=== PATIENT | female | born 1980 | race Caucasian/White ===

== ENCOUNTER → 2019-07-15 | Outpatient (CLI) | payer OTHER ==
[~2019-07-15] MED LIST: DIAZ5TAB PO; MULT1CAP15 PO
[2019-07-15 15:09] LABS: BILIRUBIN,URINE NEGATIVE (NEG); CLARITY,URINE CLEAR; COLOR,URINE YELLOW; NITRITE,URINE NEGATIVE (NEG); PROTEIN,URINE NEGATIVE (NEG-TRACE); UROBILINOGEN,URINE 0.2 mg/dL (0.2 mg/dL)
[2019-07-15 15:14] LABS: BASO # 0.1 x10^3/uL (0.0-0.2); BASO % 1 % (0-3); EOS # 0.1 x10^3/uL (0.0-0.7); EOS % 1 % (0-3); HEMATOCRIT 40.9 % (36.0-47.0); HEMOGLOBIN 13.9 g/dL (12.0-15.5); LYMPH # 1.8 x10^3/uL (1.0-4.8); LYMPH % 24 % (24-48); MEAN CORPUSCULAR HEMOGLOBIN 31 pg (25-35); MEAN CORPUSCULAR HGB CONC 34 g/dL (31-37); MEAN CORPUSCULAR VOLUME 92 fL (79-100); MONO # 0.5 x10^3/uL (0.0-1.1); MONO % 6 % (0-9); NEUT # 5.2 x10^3/uL (1.8-7.7); NEUT % 68 % (31-73); PLATELET COUNT 187 x10^3/uL (140-400); RED BLOOD COUNT 4.43 x10^6/uL (3.50-5.40); RED CELL DISTRIBUTION WIDTH 12.9 % (11.5-14.5); WHITE BLOOD COUNT 7.6 x10^3/uL (4.0-11.0)
[2019-07-15 15:30] LABS: BACTERIA,URINE FEW /HPF (0-FEW); RBC,URINE 0 /HPF (0-2); SQUAMOUS EPITHELIAL CELL,UR FEW /LPF; WBC,URINE 0 /HPF (0-4)
[2019-07-15 15:30] LABS: ALBUMIN 3.9 g/dL (3.4-5.0); ALBUMIN/GLOBULIN RATIO 1.3 (1.0-1.7); CALCIUM 9.1 mg/dL (8.5-10.1); CREATININE 0.7 mg/dL (0.6-1.0); GFR 94.2; POTASSIUM 4.8 mmol/L (3.5-5.1); TOTAL BILIRUBIN 0.6 mg/dL (0.2-1.0); TOTAL PROTEIN 6.8 g/dL (6.4-8.2)
== END | disposition home or self-care (01) ==
LOC: SURGPAT 14:29
PROVIDERS: ATTEND Obstetrics & Gynecology
DX: N80.9 Endometriosis, unspecified (principal)
CPT/HCPCS: 36415; 80053; 81001; 85025

== ENCOUNTER → 2019-12-04 | Outpatient (CLI) | payer OTHER ==
[~2019-12-04] MED LIST changes: +TRAM50TA PO
[2019-12-04 13:38] LABS: BASO # 0.1 x10^3/uL (0.0-0.2); BASO % 1 % (0-3); EOS # 0.2 x10^3/uL (0.0-0.7); EOS % 3 % (0-3); HEMATOCRIT 41.1 % (36.0-47.0); LYMPH # 2.4 x10^3/uL (1.0-4.8); LYMPH % 26 % (24-48); MEAN CORPUSCULAR HEMOGLOBIN 31 pg (25-35); MEAN CORPUSCULAR HGB CONC 34 g/dL (31-37); MEAN CORPUSCULAR VOLUME 92 fL (79-100); MONO # 0.6 x10^3/uL (0.0-1.1); MONO % 7 % (0-9); NEUT # 5.8 x10^3/uL (1.8-7.7); NEUT % 64 % (31-73); PLATELET COUNT 184 x10^3/uL (140-400); RED BLOOD COUNT 4.47 x10^6/uL (3.50-5.40); RED CELL DISTRIBUTION WIDTH 12.5 % (11.5-14.5); WHITE BLOOD COUNT 9.2 x10^3/uL (4.0-11.0)
[2019-12-04 13:38] LABS: BILIRUBIN,URINE NEGATIVE (NEG); CLARITY,URINE CLEAR; COLOR,URINE AMBER; NITRITE,URINE NEGATIVE (NEG); PROTEIN,URINE NEGATIVE (NEG-TRACE); UROBILINOGEN,URINE 0.2 mg/dL (0.2 mg/dL)
[2019-12-04 13:44] LABS: BACTERIA,URINE 0 /HPF (0-FEW); HYALINE CASTS, URINE MANY /HPF; SQUAMOUS EPITHELIAL CELL,UR MOD /LPF
[2019-12-04 13:56] LABS: ALBUMIN 3.8 g/dL (3.4-5.0); ALBUMIN/GLOBULIN RATIO 1.1 (1.0-1.7); CALCIUM 8.8 mg/dL (8.5-10.1); CREATININE 0.8 mg/dL (0.6-1.0); GFR 80.7; POTASSIUM 4.8 mmol/L (3.5-5.1); TOTAL BILIRUBIN 0.4 mg/dL (0.2-1.0); TOTAL PROTEIN 7.2 g/dL (6.4-8.2)
== END ==
LOC: SURGPAT 13:03
PROVIDERS: ATTEND Obstetrics & Gynecology
DX: Z01.818 Encounter for other preprocedural examination (principal); Z11.59 Encounter for screening for other viral diseases
CPT/HCPCS: 80053; 81001; 85025; U0003

== ENCOUNTER 2019-12-09 06:19 | Observation (INO) | payer OTHER ==
[2019-12-09] VITALS (11 sets, daily range): BP systolic 86–104; BP diastolic 50–71
[~2019-12-09] VITALS: Ht 157.5 cm; Wt 45.4 kg
[2019-12-09] MEDS ORDERED: ESTROGENS, CONJ VAGINAL CREAM 30GM TUBE. ONE (06:51)
[2019-12-09] MEDS ORDERED: BUPIVACAINE-EPI 0.25%-1:200000 MPF 30 ML VIAL. ONE (06:51)
[2019-12-09] MEDS ORDERED: INDIGOTINDISULFONATE SODIUM 40 MG/5 ML AMPUL. ONE (06:51)
[2019-12-09] MEDS ORDERED: IV RINGERS,LACTATED 1000ML 1,000 ML IV SCH (07:00)
[2019-12-09] MEDS ORDERED: ONDANSETRON PF 4 MG/2 ML VIAL. IV PRN ×2 (07:00→10:00)
[2019-12-09] MEDS ORDERED: fentaNYL PF VIAL 100 MCG/2 ML VIAL IV PRN (07:00)
[2019-12-09] MEDS ORDERED: PROCHLORPERAZINE 10 MG/2 ML VIAL. IV PRN (07:00)
[2019-12-09] MEDS ORDERED: fentaNYL PF VIAL 100 MCG/2 ML VIAL ONE ×2 (07:24→09:52)
[2019-12-09] MEDS ORDERED: MIDAZOLAM HCL/PF 2 MG/2 ML VIAL. ONE (07:24)
[2019-12-09] MEDS ORDERED: ROCURONIUM 50 MG/5 ML VIAL. ONE (07:24)
[2019-12-09] MEDS ORDERED: DEXAMETHASONE SOD PHOS 4 MG/ML VIAL ONE (07:57)
[2019-12-09] MEDS ORDERED: ONDANSETRON PF 4 MG/2 ML VIAL. ONE (07:57)
[2019-12-09] MEDS ORDERED: SEVOFLURANE 61 TO 120 MINUTES. IH ONE (07:57)
[2019-12-09] MEDS ORDERED: KETOROLAC 30 MG/ML VIAL. ONE (08:00)
[2019-12-09] MEDS ORDERED: NEOSTIGMINE METHYLSULFATE 5 MG/5 ML SYRINGE. ONE (09:20)
[2019-12-09] MEDS ORDERED: GLYCOPYRROLATE 1 MG/5 ML VIAL. ONE (09:20)
--- NOTE | 2019-12-09 09:49 | PDOC ---
BRIEF OPERATIVE NOTE Date: Dec 09, 2019 Pre-Op Diagnosis pelvic pain, endometriosis Post-Op Diagnosis same plus the known bowel adhesions Procedure Performed LAVH/BSO Surgeon Dr. Ryanne Lewis Parts Remover KVNG Antonio Anesthesiologist Dr. Dunaway Anesthesia Type: General Blood Loss 100cc IV Fluid 1400cc Urine Output 100cc clear via mendoza Specimens Obtained cervix, uterus, bilateral tubes and ovaries Findings known omentum/bowel adhesions; endometriosis on left ovary, post cul de sac and mildly enlarged RV uterus Complications none Operative Note [id number] RYANNE LEWIS MD Dec 09, 2019 09:48
[2019-12-09] MEDS: fentaNYL PF VIAL 100 MCG/2 ML VIAL IV PRN ×2 (09:55→10:02)
[2019-12-09] MEDS ORDERED: diphenhydrAMINE 50 MG/ML VIAL IV PRN (10:00)
[2019-12-09] MEDS ORDERED: MORPHINE SULFATE 2 MG/ML VIAL. IV PRN (10:00)
[2019-12-09] MEDS ORDERED: CALCIUM CARBONATE 500 MG TAB.CHEW PO PRN (10:00)
[2019-12-09] MEDS ORDERED: diphenhydrAMINE HCL 25 MG CAPSULE PO PRN (10:00)
[2019-12-09] MEDS ORDERED: LACTULOSE 20 GM/30 ML SOLUTION. PO PRN (10:00)
[2019-12-09] MEDS ORDERED: PROCHLORPERAZINE 10 MG/2 ML VIAL. ONE (10:00)
[2019-12-09] MEDS ORDERED: NALOXONE 0.4 MG/ML VIAL. IV PRN (10:00)
[2019-12-09] MEDS ORDERED: ZOLPIDEM 5 MG TABLET. PO PRN (10:00)
[2019-12-09] MEDS ORDERED: MAGNESIUM HYDROXIDE 2,400 MG/30 ML ORAL.SUSP. PO PRN (10:00)
[2019-12-09] MEDS ORDERED: MAG HYDROX/ALUMINUM HYD/SIMETH 30 ML ORAL.SUSP PO PRN (10:00)
[2019-12-09] MEDS ORDERED: 0.9 % SODIUM CHLORIDE 10 ML DISP.SYRIN. IV PRN (10:00)
[2019-12-09] MEDS ORDERED: MORPHINE SULFATE 2 MG/ML VIAL. ONE (10:13)
[2019-12-09] MEDS: MORPHINE SULFATE 2 MG/ML VIAL. IV PRN ×2 (10:18→10:41)
[2019-12-09] MEDS ORDERED: HYDROmorphone 2 MG/ML VIAL ONE (10:50)
[2019-12-09] MEDS: HYDROmorphone 2 MG/ML VIAL IV PRN ×2 (10:53→11:04)
[2019-12-09] MEDS: oxyCODONE/APAP 5/325 1 TAB TABLET PO PRN ×3 (12:04→17:48)
--- NOTE | 2019-12-09 13:49 | OP ---
DATE OF SURGERY: 12/09/2019 PREOPERATIVE DIAGNOSES: Known endometriosis from a prior laparoscopy with bowel adhesions as well from a prior mesh procedure, chronic pelvic pain, and endometriosis. POSTOPERATIVE DIAGNOSES: Known endometriosis from a prior laparoscopy with bowel adhesions as well from a prior mesh procedure, chronic pelvic pain, and endometriosis. PROCEDURE: Laparoscopic-assisted vaginal hysterectomy, bilateral salpingo-oophorectomy. SURGEON: Emigdio Lewis MD ORACLE ENDECA CONSULTANT: KVNG De Oliveira ANESTHESIOLOGIST: Dr. Dunaway. ANESTHESIA: General. ESTIMATED BLOOD LOSS: 100 mL. URINE OUTPUT: 100 mL clear via Woodruff catheter. INTRAVENOUS FLUIDS: 1400 mL. SPECIMENS: Cervix, uterus, bilateral tubes and ovaries. FINDINGS: Known omental and bowel adhesions, endometriosis in the posterior cul-de-sac and on the left ovary and a mildly enlarged retroverted uterus. COMPLICATIONS: None. DESCRIPTION OF PROCEDURE: This patient was taken to the operating room where general anesthesia was placed. The patient was placed in a dorsal lithotomy position in [facility]. She was prepped and draped in the normal sterile fashion. A Woodruff catheter had been inserted under sterile technique. On my arrival, we did the timeout. Then, the procedure was initiated. A bivalve speculum was placed in the patient's vagina. A single-tooth tenaculum was used to grasp the anterior lip of the cervix. A 10 mL of 0.25% Marcaine with epinephrine was used to circumferentially inject around the cervix for both hemodissection and hemostatic purposes later. The Valtchev uterine manipulator was placed through the endocervical os, locked on the single-tooth tenaculum and the bivalve speculum was then removed. Top gloves were discarded and changed. Attention was then turned to the abdomen where the left upper quadrant incision was made over the existing scar known from her laparoscopy carried down to the underlying layer with a curved Trista. The 5 mm Visiport was used to directly into the abdominal cavity. Opening patient pressure was 2 mmHg. Carbon dioxide gas was used to then appropriately insufflate the abdominal cavity to maintain a pressure of 15 mmHg. The patient was placed in Trendelenburg position. She did have that wall of omentum on the top. The small bowel seen lower, but over the mesh in the midline just to the left, but the uterus and tubes and ovaries were free. She had had some Endo on the left ovary and in the posterior cul-de-sac. The right lower quadrant was placed over the existing scar as well. It was still clear of everything, so transilluminating the abdominal wall, going right over it and placing the 5 mm under direct visualization, placing 4-5 mL of air in the cuff. I then did move the camera to look at the left upper quadrant to make sure it was okay and it was, it was clear, so 4-5 mL of air was placed in this as well. At this point, we put a left lower quadrant and we went lateral so I was not right in front of my camera, clear of any area, making a small incision, after transilluminating the abdominal wall to find a clear area and placing it in under direct visualization without difficulty, also insufflating that cuff with 4-5 mL of air. At this point, the left tube and ovary were elevated, finding the ureter coursing low in the pelvis, staying high on the ovary, using the LigaSure to cauterize and cut the infundibulopelvic ligament, taking it over to the uterus and then crossing the left round ligament as well, cauterizing and cutting the whole way with the LigaSure. This was done exactly the same on the right side. The right tube was actually already detached from her prior tubal around the ovary, so when I elevated it and found the ureter coursing low and cut it, the tube and ovary actually came off on this side, so it was placed in the posterior cul-de-sac, after lifting it, when I found the ureter coursing low, stayed high on the infundibulopelvic ligament, cauterizing and cutting, it came off because there was no tube to follow under, so then I just pulled the corner of the uterus over and crossed to the right round ligament as well. I was able to start the bladder flap on the right, elevating it with the [place] and using the monopolar hook to work my way across. Once the bladder flap was down, I got the uterine vessels on the right side and then went back to the left side and stayed inside that round pedicle made sure the bladder was down and hugged the uterus and went down to the uterosacral on the right side, cauterizing and cutting through the cardinal and broad ligaments, hugging the cervix and uterus the whole way down vertically. Once this was done, uterus was blanched and it was completely free. I went a couple more bites on the right side inside that uterine pedicle and then we decided to go below. All instruments were removed. Gas was released and attention was turned below. The single tooth and Valtchev were removed. A weighted speculum was placed in the patient's vagina. Thyroid Juanita clamps were placed on the anterior and posterior lips of the cervix respectively. A scalpel was used to make a circumferential incision in the cervix. An open Ray-Rashard 4 x 4 was used to gently push up the anterior bladder peritoneum and it was digitally and bluntly entered. The curved [place] was placed in the anterior cul-de-sac and the 4 x 4 was removed and passed back off. The cervix was elevated. The posterior cul-de-sac was actually already entered. A #0 Vicryl stitch was used to secure the posterior peritoneum here to the vaginal cuff, was tagged with a curved Trista clamp. The needle was cut and passed off. The short weighted vaginal speculum was removed and replaced with the long Harriet speculum in the posterior cul-de-sac. Curved Nataliia clamps x 2 were placed on the patient's left uterosacral ligament where they were doubly clamped with curved Heaneys, cut with curved Condon scissors and suture ligated x 2 with 0 Vicryl. Second one was taken through the vaginal cuff securing uterosacral ligament to the vaginal cuff, tagging it with a straight Trista clamp and passing the needle off. This was done exactly the same on the right side, double clamping the uterosacrals with curved Nataliia's, cutting with curved Condon scissors, suture ligating x 2 with 0 Vicryl and taking the second one through the vaginal cuff, tagging it with a straight Trista clamp and cutting and passing the needle off. At this point, the uterus was actually completely free, the cervix, uterus, left tube and ovary were delivered in toto. The right tube and ovary were easily seen once it came out in the posterior cul-de-sac where we placed them and passed off as well. At this point, a sponge stick was used to examine the pedicles. A long Allis was used to grasp the anterior bladder peritoneum. There was nothing actively bleeding. The long Harriet speculum was removed and replaced with the short weighted vaginal speculum. At this point, 2-0 Vicryl was taken through the anterior bladder peritoneum, left uterosacral ligament, posterior peritoneum and right uterosacral ligament, thus closing the peritoneum in a pursestring like fashion. The right and left uterosacral tags were clipped. The vaginal cuff was closed in an anterior to posterior running locked fashion and tied to the posterior cuff tag. Imbricating stitch was placed in the middle for hemostasis with excellent results. There was no cuff bleeding at all. So at this point, all instruments were correct and counted x 2 by OR personnel. All gloves were discarded and changed and attention was turned back above for a second look. The patient was placed back in Trendelenburg. Gas was reinsufflated. The scope was placed in. She had some very slight oozing from the right cuff that was easily cauterized with the LigaSure with excellent results. Copious irrigation revealed hemostasis. Tisseel was placed over the vaginal cuff, again remained dry, so the right and left lower quadrant ports, the balloons were deflated, they were removed under direct visualization, the vaginal cuff was examined after each one and still remained hemostatic and dry after the irrigation and Tisseel, so at this point, gas was released from that left upper quadrant port. The balloon was deflated and it was also removed. All 3 port sites were closed with 4-0 nylon at the skin and injected with local. The patient was awakened from anesthesia and brought to recovery room in stable condition. EMIGDIO LWEIS MD DR: FRANKLIN/ivan JOB#: [id number] / [id number]
[2019-12-09] MEDS: IBUPROFEN 200 MG TABLET. PO PRN (17:49)
[2019-12-09] MEDS: NICOTINE 14MG PATCH. TD SCH (18:32)
[2019-12-09] MEDS: SIMETHICONE 80 MG TAB.CHEW PO PRN (19:19)
[2019-12-09] MEDS ORDERED: diazePAM 5 MG TABLET PO SCH (21:00)
[2019-12-09] MEDS: HYDROcodone/APAP 5/325MG 1 TAB TABLET PO PRN (21:03)
[2019-12-10] MEDS: HYDROcodone/APAP 5/325MG 1 TAB TABLET PO PRN ×2 (00:51→04:55)
[2019-12-10] MEDS: IBUPROFEN 200 MG TABLET. PO PRN ×2 (00:51→06:45)
[2019-12-10 05:00] VITALS: BP 98/66
[2019-12-10] MEDS: oxyCODONE/APAP 5/325 1 TAB TABLET PO PRN ×3 (07:59→12:13)
[2019-12-10] MEDS: SIMETHICONE 80 MG TAB.CHEW PO PRN (08:00)
[2019-12-10] MEDS: NICOTINE 14MG PATCH. TD SCH (08:01)
[2019-12-10 09:16] LABS: CALCIUM 7.9 mg/dL (8.5-10.1); CREATININE 0.7 mg/dL (0.6-1.0); GFR 94.2; POTASSIUM 4.1 mmol/L (3.5-5.1)
--- NOTE | 2019-12-10 11:44 | PDOC ---
SURGICAL PROGRESS NOTE DATE: 12/10/19 TIME: 11:39 Subjective pt was up eating breakfast in bed this am on exam. She reported some pain and that oxycodone worked better than hydrocodone. Voiding without catheter, no n/v and scant vb Vital Signs Vital Signs Date Time Temp Pulse Resp B/P (MAP) Pulse Ox O2 Delivery O2 Flow Rate FiO2 12/10/19 05:00 97.9 63 16 98/66 (77) 97 Room Air 97.9 12/09/19 11:00 5.0 I&O Intake and Output 12/10/19 07:00 Intake Total 1250 ml Output Total 1100 ml Balance 150 ml Intake IV Total 1250 ml Output Urine Total 1000 ml Estimated Blood Loss 100 ml PATIENT HAS A SANTOS: No General: Alert, Oriented X3, Cooperative, No acute distress HEENT: Atraumatic Heart: Regular rate Abdomen: Soft, Other (all port sites c/d/i) Extremities: No clubbing, No cyanosis, No edema Skin: No rashes, No breakdown Neuro: Normal speech Psych/Mental Status: Mental status NL, Mood NL Labs Laboratory Tests Test 12/09/19 06:44 12/10/19 08:35 Bedside Urine HCG, Qualitative Hcg negative (Negative) Hematocrit 35.4 % (36.0-47.0) Sodium Level 141 mmol/L (136-145) Potassium Level 4.1 mmol/L (3.5-5.1) Chloride Level 107 mmol/L (98-107) Carbon Dioxide Level 31 mmol/L (21-32) Anion Gap 3 (6-14) Blood Urea Nitrogen 6 mg/dL (7-20) Creatinine 0.7 mg/dL (0.6-1.0) Estimated GFR (Cockcroft-Gault) 94.2 Glucose Level 90 mg/dL (70-99) Calcium Level 7.9 mg/dL (8.5-10.1) Laboratory Tests Test 12/10/19 08:35 Hematocrit 35.4 % (36.0-47.0) Sodium Level 141 mmol/L (136-145) Potassium Level 4.1 mmol/L (3.5-5.1) Chloride Level 107 mmol/L (98-107) Carbon Dioxide Level 31 mmol/L (21-32) Anion Gap 3 (6-14) Blood Urea Nitrogen 6 mg/dL (7-20) Creatinine 0.7 mg/dL (0.6-1.0) Estimated GFR (Cockcroft-Gault) 94.2 Glucose Level 90 mg/dL (70-99) Calcium Level 7.9 mg/dL (8.5-10.1) I have reviewed the following labs, vitals, nursing Cardiovascular: No pertinent hx Pulmonary: No pertinent hx GI: Other (pt reports ulcer) Heme/Onc: No pertinent hx Psych: No pertinent hx Assessment/Plan POD#1 s/p LAVH/BSO Routine PO care AF VSS dc to home later today NPV x 6 weeks light/limited activity x 2 weeks keep scheduled follow up in one week as scheduled already has pain pills at home ok for OTC ibuprofen as needed NO driving on pain meds call or return sooner for any other questions or concerns not limited to but including pain unrelieved with pain meds, increased or unexplained vaginal bleeding or T>100.4 Justicifation of Admission Dx: Justifications for Admission: Justification of Admission Dx: Yes EMIGDIO DE LA PAZ MD Dec 10, 2019 11:44
--- NOTE | 2019-12-10 11:47 | PDOC3 ---
Discharge Summary Visit Information Date of Admission: Dec 09, 2019 Date of Discharge: Dec 10, 2019 Final Diagnosis endometriosis, menorrhagia, pelvic pain Brief Hospital Course Allergies Allergies Coded Allergies Type Severity Reaction Last Updated Verified adhesive Allergy Intermediate Rash 07/15/19 Yes latex Allergy Intermediate Rash 07/15/19 Yes Vital Signs Vital Signs Date Time Temp Pulse Resp B/P (MAP) Pulse Ox O2 Delivery O2 Flow Rate FiO2 12/10/19 05:00 97.9 63 16 98/66 (77) 97 Room Air 97.9 12/09/19 11:00 5.0 Lab Results Laboratory Tests Test 12/09/19 06:44 12/10/19 08:35 Bedside Urine HCG, Qualitative Hcg negative (Negative) Hematocrit 35.4 % (36.0-47.0) Sodium Level 141 mmol/L (136-145) Potassium Level 4.1 mmol/L (3.5-5.1) Chloride Level 107 mmol/L (98-107) Carbon Dioxide Level 31 mmol/L (21-32) Anion Gap 3 (6-14) Blood Urea Nitrogen 6 mg/dL (7-20) Creatinine 0.7 mg/dL (0.6-1.0) Estimated GFR (Cockcroft-Gault) 94.2 Glucose Level 90 mg/dL (70-99) Calcium Level 7.9 mg/dL (8.5-10.1) Laboratory Tests Test 12/10/19 08:35 Hematocrit 35.4 % (36.0-47.0) Sodium Level 141 mmol/L (136-145) Potassium Level 4.1 mmol/L (3.5-5.1) Chloride Level 107 mmol/L (98-107) Carbon Dioxide Level 31 mmol/L (21-32) Anion Gap 3 (6-14) Blood Urea Nitrogen 6 mg/dL (7-20) Creatinine 0.7 mg/dL (0.6-1.0) Estimated GFR (Cockcroft-Gault) 94.2 Glucose Level 90 mg/dL (70-99) Calcium Level 7.9 mg/dL (8.5-10.1) Brief Hospital Course Ms. Trejo is a 39 old female who presented with chronic pelvic pain, known endometriosis and menorrhagia desiring definitive therapy. She underwent and LAVH/BSO yesterday without complications. She has had an unremarkable postoperative course. She is AFVSS, scant VB, voiding without catheter and tolerating regular diet. Assessment Assessment POD#1 s/p LAVH/BSO Routine PO care AF VSS dc to home later today NPV x 6 weeks light/limited activity x 2 weeks keep scheduled follow up in one week as scheduled already has pain pills at home ok for OTC ibuprofen as needed NO driving on pain meds call or return sooner for any other questions or concerns not limited to but including pain unrelieved with pain meds, increased or unexplained vaginal bleeding or T>100.4 Discharge Information Condition at Discharge: Stable Follow Up: Weeks Disposition/Orders: D/C to Home Scheduled Diazepam (Valium) 5 Mg Tablet, 7.5 MG PO HS for sleep aid, (Reported) Entered as Reported by: LEANN MARTE on 07/15/19 1447 Last Taken: Unknown Dose on 12/09/19 0600 Last Action: Continued on 12/09/19742 by EMIGDIO DE LA PAZ Multivitamin (Multivitamins) 1 Each Capsule, 1 CAP PO DAILY for vitamin for 30 Days, #30 Ref 0 (Reported) Entered as Reported by: LEANN MARTE on 07/15/19 1446 Last Action: HELD on 12/09/19 0743 by EMIGDIO DE LA PAZ Scheduled PRN Tramadol Hcl (Tramadol Hcl) 50 Mg Tablet, 50 MG PO BID PRN for PAIN, Ref 0 (Reported) Entered as Reported by: LEANN MARTE on 12/04/19 1329 Last Taken: Unknown Dose on 12/09/19 0700 Last Action: HELD on 12/09/19 074 3 by EMIGDIO DE LA PAZ Patient Instructions Patient Instructions POD#1 s/p LAVH/BSO Routine PO care AF VSS dc to home later today NPV x 6 weeks light/limited activity x 2 weeks keep scheduled follow up in one week as scheduled already has pain pills at home ok for OTC ibuprofen as needed NO driving on pain meds call or return sooner for any other questions or concerns not limited to but including pain unrelieved with pain meds, increased or unexplained vaginal bleeding or T>100.4 Justicifation of Admission Dx: Justifications for Admission: Justification of Admission Dx: Yes EMIGDIO DE LA PAZ MD Dec 10, 2019 11:47
[2019-12-10 12:15] VITALS: BP 98/69
--- NOTE | 2019-12-10 17:07 | PATHOLOGY ---
[facility] Accession Number: [id number] . 01 Material submitted: . uterus - UTERUS,CERVIX,BILATERAL FALLOPIAN TUBES,BILATERAL OVARIES . 01 Clinical history: . Endometriosis; pelvic pain . 02 Diagnosis: Uterus and attached left fallopian tube and ovary, and detached right fallopian tube and ovary, laparoscopic assisted vaginal hysterectomy and bilateral salpingo-oophorectomy: - Adenomyosis, uterine corpus, subbasal, focal. - Chronic cervicitis with focal atypical squamous metaplasia. - Proliferative endometrium. - Left paratubal cyst. - Cystic follicles of bilateral ovaries with focal regressive changes. (JPM:boom; 12/10/2019) [facility] 12/10/2019 1654 Local . 02 Comment: There is no evidence of malignancy. (JPM:boom; 12/10/2019) . 02 Electronically signed: . Wes Egan MD, Pathologist NPI- [id number] . 01 Gross description: . The specimen is received in formalin labeled " Kaitlynn Trejo, uterus, cervix, bilateral fallopian tubes, bilateral ovaries, right ovary detached". Received is a 100 g, 8.2 x 6.0 x 4.1 cm uterus with attached cervix, attached left adnexa weighing 16 g, and detached right adnexa weighing 9 g. The uterine serosa is pink-pickett and smooth in appearance. The 1.3 cm cervical os is surrounded by pink-pickett, smooth to moderately disrupted ectocervical mucosa surrounding the cervical os. The uterus is oriented using the peritoneal reflection and the anterior paracervical margin is inked black. The uterus is opened laterally to reveal a pink-pickett, corrugated endocervical canal measuring 2.4 cm in length. The endometrial cavity is triangular measuring 4.5 cm in length by 2.9 cm in width. The endometrium is pale pickett to hemorrhagic in appearance and measures one cm in thickness. Serial sectioning reveals a pickett-pink, trabeculated myometrium measuring up to 2.2 cm in thickness with no grossly distinct nodules or lesions. . The left adnexa consists of a fimbriated fallopian tube measuring 6.3 cm in length by up to 0.6 cm in diameter attached to a 5.0 x 2.5 x 1.5 cm ovary. The serosal surface of the fallopian tube is pink-pickett and smooth in appearance displaying a single attached paratubal cyst measuring 0.5 cm. Sectioning through the fallopian tube reveals a pinpoint to patent lumen and the fallopian tube appears grossly unremarkable. The serosal surface of the ovary is pink-pickett to pink-hollingsworth and smooth in appearance. Sectioning through the ovary reveals multiple unilocular cystic structures ranging in size from 0.3 to 1.0 cm filled with clear fluid. . The right adnexa consists of a fimbriated fallopian tube measuring 2.5 cm in length by up to 0.5 cm in diameter attached to a 4.8 x 2.6 x 1.6 cm ovary. The serosal surface of the fallopian tube is pink-hollingsworth and smooth in appearance. Sectioning through the fallopian tube reveals a patent lumen and the fallopian tube appears grossly unremarkable. The serosal surface of the ovary is pale pickett to pink-hollingsworth and smooth in appearance. Sectioning through the ovary reveals multiple cystic structures ranging in size from 0.3 to 0.7 cm filled with blood-tinged fluid. The specimen is submitted representatively as follows: . A1 12:00 cervix A2 6:00 cervix A3 anterior endomyometrium A4 posterior endomyometrium A5-A6 left adnexa A7-A8 right adnexa. (CAA; 12/09/2019) QA/QA 12/10/2019 1339 Local . 02 Pathologist provided ICD-10: N80.0, N72, N87.9, N83.8 . 02 CPT . 971727 Specimen Comment: A courtesy copy of this report has been sent to [phone], [phone] Specimen Comment: [id number] Specimen Comment: Report sent to / DR WEBER Performed at: [id number] [facility] [address], [place], [place] [id number] MD Román Mesa MD Phone: [phone] Performed at: [address] [id number] MD Wes Egan MD Phone: [phone]
== END 2019-12-10 18:00 | disposition home or self-care (01) ==
LOC: SURG 06:19 → 3 NORTH 10:00
PROVIDERS: ADMIT Obstetrics & Gynecology; ATTEND Obstetrics & Gynecology
DX: N80.3 Endometriosis of pelvic peritoneum (principal); N92.0 Excessive and frequent menstruation with regular cycle; R10.2 Pelvic and perineal pain
CPT/HCPCS: 36415; 58552; 80048; 81025; 85014; 86850; 86900; 86901; A4314; A7015; G0378; G0379; J0690; J0780; J1100; J1170; J1885; J2250; J2270; J2405; J2710; J3010; J3480; J3490; J7030; J7120; 96360; 96361

== ENCOUNTER 2019-12-22 17:22 | Emergency (ER) | payer OTHER ==
[~2019-12-22] VITALS: Ht 165.1 cm; Wt 40.9 kg
[2019-12-22 18:25] VITALS: BP 153/75
[2019-12-22] MEDS ORDERED: ONDANSETRON PF 4 MG/2 ML VIAL. IVP ONE (18:45)
[2019-12-22] MEDS ORDERED: HYDROmorphone 2 MG/ML VIAL IV ONE (18:45)
[2019-12-22 18:59] LABS: BILIRUBIN,URINE NEGATIVE (NEG); CLARITY,URINE CLEAR; COLOR,URINE YELLOW; NITRITE,URINE NEGATIVE (NEG); PROTEIN,URINE NEGATIVE (NEG-TRACE); UROBILINOGEN,URINE 0.2 mg/dL (0.2 mg/dL)
--- NOTE | 2019-12-22 19:12 | PHYS DOC ---
Past Medical History Past Medical History: Anxiety Additional Past Medical Histor: HERNIA Past Surgical History: Other Additional Past Surgical Histo: SHOULDER, HEMORRHOIDECTOMY Smoking Status: Current Every Day Smoker Alcohol Use: None General Adult EDM: Chief Complaint: PELVIC PAIN HPI: HPI: The history was obtained from the patient and . Patient is a 39-year-old female with PMH status post hysterectomy on December 08 secondary to endometriosis, peptic ulcer disease who presents with a chief complaint of lower abdominal pain. Patient states that she had a hysterectomy performed on December 08 at our facility by Dr. Lewis secondary to endometriosis. She states that her pain was well controlled postoperatively until a couple of days ago when she ran out of her home oxycodone. States she has had constant lower abdominal pain since then. States it seems to wrap around her right lower back. She notes nausea without vomiting. She notes a lack of appetite. She denies any dysuria, hematuria, or polyuria. She does note some mild brownish vaginal discharge that she was told is normal postoperatively. She has followed up with her SWINE NUTRITIONIST who does not think that her postoperative pain related to her surgery. She was seen at an outside emergency department yesterday for pain related complaints. CAT scan at that time was grossly unremarkable. She denies any fevers. Denies syncope. States that she has not been taking her dyspepsia medication recently. Denies chest pain, shortness of breath, or cough. No other complaints. Review of Systems: Review of Systems: Constitutional: Denies fever or chills. [] Eyes: Denies change in visual acuity. [] HENT: Denies nasal congestion or sore throat. [] Respiratory: Denies cough or shortness of breath. [] Cardiovascular: Denies chest pain or edema. [] GI: Positive for abdominal pain, nausea : Positive for vaginal discharge Musculoskeletal: Denies back pain or joint pain. [] Integument: Denies rash. [] Neurologic: Denies headache, focal weakness or sensory changes. [] Endocrine: Denies polyuria or polydipsia. [] Lymphatic: Denies swollen glands. [] Psychiatric: Denies depression or anxiety. [] Heart Score: Risk Factors: Risk Factors: DM, Current or recent (<one month) smoker, HTN, HLP, family history of CAD, obesity. Risk Scores: Score 0 - 3: 2.5% MACE over next 6 weeks - Discharge Home Score 4 - 6: 20.3% MACE over next 6 weeks - Admit for Clinical Observation Score 7 - 10: 72.7% MACE over next 6 weeks - Early Invasive Strategies Current Medications: Current Medications Medications (Trade) Dose Ordered Sig/Jasmeet Start Time Stop Time Status Last Admin Dose Admin Hydromorphone HCl (Dilaudid) 1 mg 1X ONCE 12/22/19 18:45 12/22/19 18:46 DC Ondansetron HCl (Zofran) 4 mg 1X ONCE 12/22/19 18:45 12/22/19 18:46 DC Allergies: Allergies: Allergies Coded Allergies Type Severity Reaction Last Updated Verified adhesive Allergy Intermediate Rash 07/15/19 Yes latex Allergy Intermediate Rash 07/15/19 Yes Physical Exam: PE: Constitutional: Well developed, well nourished, no acute distress, non-toxic appearance. [] HENT: Normocephalic, atraumatic, bilateral external ears normal, oropharynx moist, no oral exudates, nose normal. [] Eyes: PERRLA, EOMI, conjunctiva normal, no discharge. [] Neck: Normal range of motion, no tenderness, supple, no stridor. [] Cardiovascular: Tachycardic. Lungs & Thorax: Bilateral breath sounds clear to auscultation [] Abdomen: Mild diffuse tenderness to palpation. Patient appears to voluntarily guard. No rigidity appreciated. : Thin white vaginal discharge noted. No cervical motion tenderness. Chaperoned with Cedric Meehan Skin: Warm, dry, no erythema, no rash. [] Back: No tenderness, no CVA tenderness. [] Extremities: No tenderness, no cyanosis, no clubbing, ROM intact, no edema. [] Neurologic: Alert and oriented X 3, normal motor function, normal sensory function, no focal deficits noted. [] Psychologic: Affect normal, judgement normal, mood normal. [] Current Patient Data: Vital Signs: Vital Signs Date Time Temp Pulse Resp B/P (MAP) Pulse Ox O2 Delivery O2 Flow Rate FiO2 12/22/19 18:25 98.5 113 20 153/75 (101) 99 Room Air 98.5 EKG: EKG: [] Radiology/Procedures: Radiology/Procedures: [] Course & Med Decision Making: Course & Med Decision Making Pertinent Labs and Imaging studies reviewed. (See chart for details) Patient is an uncomfortable appearing 39-year-old female who presents with a chief complaint of abdominal pain. She notes history of hysterectomy on December 08. Initial vital signs normal for mild tachycardia. Physical exam noted above. Ultrasound imaging was obtained with no acute pathology. CBC without leukocytosis. Maner of labs been unremarkable. Urinalysis without evidence of infection. Pelvic exam did reveal milky white thin discharge. Wet prep however shows no signs of bacterial vaginosis or trichomonas. Chlamydia and gonorrhea cultures pending. I did engage the patient and at bedside and lengthy discussion regarding results of labs and imaging. I did offer to obtain repeat CAT scan imaging particularly given the potential for perirectal abnormality noted on the scan yesterday. They state they would prefer to defer CAT scan imaging given the risk of radiation. She states he is having normal bowel movements. Furthermore they are also declining Rocephin and azithromycin prophylactic treatment until cultures return. On repeat examination her abdomen is now soft. Her pain is well controlled. Strict 24 to 48-hour return precautions were given. I did instruct her to follow-up with her primary care physician in the next 2 to 3 days. She will be given a GI referral given her OBG was concerned this could be gastrointestinal related. Patient agreeable to plan and discharged home. Ravinder Disclaimer: Ravinder Disclaimer: This electronic medical record was generated, in whole or in part, using a voice recognition dictation system. Departure Departure Impression: Primary Impression: Lower abdominal pain Additional Impression: Status post hysterectomy Disposition: HOME, SELF-CARE Condition: GOOD Referrals: HOLGER WEBER (PCP) NENITA FRIAS MD Patient Instructions: Hysterectomy, Care After Additional Instructions: Please follow-up with your SWINE NUTRITIONIST in the next 2 to 3 days. Please follow-up with your primary care physician in the next 2 to 3 days. Please return the emergency department in 24 to 48 hours should her symptoms not improve or worsen. Scripts Ondansetron Hcl (ZOFRAN) 4 Mg Tablet 4 MG PO PRN TID PRN for NAUSEA, #15 nausea/vomiting Prov: MAXIMILIANO DOWD DO 12/21/20 Dicyclomine Hcl (DICYCLOMINE HCL) 20 Mg Tablet 1 TAB PO TID, #21 TAB 1 Refill Prov: MAXIMILIANO DOWD DO 8/25/20 Famotidine (PEPCID) 20 Mg Tablet 20 MG PO HS for 14 Days, #14 TAB Prov: MAXIMILIANO DOWD DO 12/22/19 Justicifation of Admission Dx: Justifications for Admission: Justification of Admission Dx: Yes MAXIMILIANO DOWD DO Dec 22, 2019 19:12
[2019-12-22 19:21] LABS: SQUAMOUS EPITHELIAL CELL,UR FEW /LPF
[2019-12-22 19:22] LABS: BACTERIA,URINE FEW /HPF (0-FEW); RBC,URINE RARE /HPF (0-2); WBC,URINE 0 /HPF (0-4)
[2019-12-22 19:35] LABS: BASO # 0.1 x10^3/uL (0.0-0.2); BASO % 1 % (0-3); EOS # 0.1 x10^3/uL (0.0-0.7); EOS % 2 % (0-3); HEMATOCRIT 41.5 % (36.0-47.0); HEMOGLOBIN 14.5 g/dL (12.0-15.5); LYMPH # 2.8 x10^3/uL (1.0-4.8); LYMPH % 35 % (24-48); MEAN CORPUSCULAR HEMOGLOBIN 31 pg (25-35); MEAN CORPUSCULAR HGB CONC 35 g/dL (31-37); MEAN CORPUSCULAR VOLUME 89 fL (79-100); MONO # 0.5 x10^3/uL (0.0-1.1); MONO % 6 % (0-9); NEUT # 4.5 x10^3/uL (1.8-7.7); NEUT % 57 % (31-73); PLATELET COUNT 212 x10^3/uL (140-400); RED BLOOD COUNT 4.64 x10^6/uL (3.50-5.40); RED CELL DISTRIBUTION WIDTH 12.4 % (11.5-14.5)
[2019-12-22 19:44] LABS: CALCIUM 8.8 mg/dL (8.5-10.1); CREATININE 0.7 mg/dL (0.6-1.0); GFR 94.2; POTASSIUM 3.9 mmol/L (3.5-5.1)
[2019-12-22 19:49] LABS: ALBUMIN/GLOBULIN RATIO 1.1 (1.0-1.7); TOTAL BILIRUBIN 0.6 mg/dL (0.2-1.0); TOTAL PROTEIN 7.8 g/dL (6.4-8.2)
--- NOTE | 2019-12-22 20:31 | RAD ---
Exam: Ultrasound pelvis ultrasound Indication: Lower abdominal pain. Hysterectomy on the 12th Technique: Real-time grayscale and color Doppler images of the pelvis were obtained by the department title specialist. Comparisons: None FINDINGS: Uterus is surgically absent. Ovaries are not identified, likely also surgically absent. No free fluid is identified. IMPRESSION: Uterus and ovaries are not identified, likely related to hysterectomy. No free fluid. Electronically signed by: Xiomara Pearson MD (12/22/2019 8:29 PM) [id number]
[2019-12-22] MEDS ORDERED: fentaNYL PF VIAL 100 MCG/2 ML VIAL IVP ONE (23:00)
[2019-12-22] MEDS ORDERED: FAMO-63 PO (23:01)
[2019-12-22] MEDS ORDERED: ONDA4TAB7 PO (23:01)
[2019-12-22] MEDS ORDERED: DICY20TA3 PO (23:01)
[2019-12-24 19:09] LABS: GC PROBE Negative (Negative)
== END 2019-12-22 23:47 | disposition home or self-care (01) ==
LOC: ER 17:22
DX: R10.84 Generalized abdominal pain (principal); N89.8 Other specified noninflammatory disorders of vagina; F17.200 Nicotine dependence, unspecified, uncomplicated; Z98.890 Other specified postprocedural states; Z90.710 Acquired absence of both cervix and uterus; Z91.040 Latex allergy status; Z88.8 Allergy status to other drugs, medicaments and biological substances
CPT/HCPCS: 36415; 76856; 80053; 81001; 83605; 85025; 87491; 87591; 96374; 96375; 99284; J1170; J2405; J3010; Q0111

== ENCOUNTER 2019-12-31 15:38 | Inpatient (IN) | payer OTHER ==
[~2019-12-31] VITALS: Ht 157.5 cm; Wt 49.0 kg
[~2019-12-31 15:38] MED LIST changes: +DICY20TA3 PO; +FAMO-63 PO; +ONDA4TAB7 PO
[2019-12-31 15:59] LABS: BILIRUBIN,URINE NEGATIVE (NEG); CLARITY,URINE CLEAR; COLOR,URINE YELLOW; NITRITE,URINE NEGATIVE (NEG); PROTEIN,URINE NEGATIVE (NEG-TRACE); UROBILINOGEN,URINE 0.2 mg/dL (0.2 mg/dL)
[2019-12-31] MEDS ORDERED: IV NORMAL SALINE 1000ML BAG 1,000 ML IV ONE (16:00)
[2019-12-31 16:03] LABS: BACTERIA,URINE 0 /HPF (0-FEW); RBC,URINE 0 /HPF (0-2); WBC,URINE 0 /HPF (0-4)
[2019-12-31 16:15] LABS: BASO # 0.1 x10^3/uL (0.0-0.2); BASO % 1 % (0-3); EOS # 0.1 x10^3/uL (0.0-0.7); EOS % 2 % (0-3); HEMATOCRIT 40.7 % (36.0-47.0); LYMPH # 2.9 x10^3/uL (1.0-4.8); LYMPH % 41 % (24-48); MEAN CORPUSCULAR HEMOGLOBIN 31 pg (25-35); MEAN CORPUSCULAR HGB CONC 34 g/dL (31-37); MEAN CORPUSCULAR VOLUME 91 fL (79-100); MONO # 0.5 x10^3/uL (0.0-1.1); MONO % 6 % (0-9); NEUT # 3.5 x10^3/uL (1.8-7.7); NEUT % 50 % (31-73); PLATELET COUNT 206 x10^3/uL (140-400); RED CELL DISTRIBUTION WIDTH 12.6 % (11.5-14.5); WHITE BLOOD COUNT 7.1 x10^3/uL (4.0-11.0)
[2019-12-31] MEDS ORDERED: fentaNYL PF VIAL 100 MCG/2 ML VIAL IVP ONE ×2 (16:15→18:00)
[2019-12-31] MEDS ORDERED: ONDANSETRON PF 4 MG/2 ML VIAL. IVP ONE (16:15)
--- NOTE | 2019-12-31 16:15 | PHYS DOC ---
Past Medical History Past Medical History: Anxiety Additional Past Medical Histor: HERNIA (KE SANCHEZ DO) Past Surgical History: Other Additional Past Surgical Histo: SHOULDER, HEMORRHOIDECTOMY (KE SANCHEZ DO) Smoking Status: Current Every Day Smoker Alcohol Use: None (KE SANCHEZ DO) General Adult EDM: Chief Complaint: PELVIC PAIN HPI: HPI: Patient is a 39 year old who was sent here from her [facility] physician clinic due to chronic pelvic pain. Patient had chronic pelvic pain, she had hysterectomy on December 09, 2019. After the operation patient says she had nausea vomiting not able to eat much, she lost about 10 pounds since. Since last night patient started having severe pelvic pain, she went to her [facility] doctor today who did a pelvic exam and did not find any acute problem but the abdominal exam she was exquisitely tender to palpation therefore the doctor called the ER and informed that the patient is coming for further evaluation and treatment. Patient has history of peptic ulcer as well. (KE SANCHEZ DO) Review of Systems: Review of Systems: Constitutional: Denies fever or chills. [] Eyes: Denies change in visual acuity. [] HENT: Denies nasal congestion or sore throat. [] Respiratory: Denies cough or shortness of breath. [] Cardiovascular: Denies chest pain or edema. [] GI: Positive for lower abdominal pain with nausea vomiting, no diarrhea : Denies dysuria. [] Musculoskeletal: Denies back pain or joint pain. [] Integument: Denies rash. [] Neurologic: Denies headache, focal weakness or sensory changes. [] Endocrine: Denies polyuria or polydipsia. [] Lymphatic: Denies swollen glands. [] Psychiatric: Denies depression or anxiety. [] (KE SANCHEZ DO) Heart Score: Risk Factors: Risk Factors: DM, Current or recent (<one month) smoker, HTN, HLP, family history of CAD, obesity. Risk Scores: Score 0 - 3: 2.5% MACE over next 6 weeks - Discharge Home Score 4 - 6: 20.3% MACE over next 6 weeks - Admit for Clinical Observation Score 7 - 10: 72.7% MACE over next 6 weeks - Early Invasive Strategies (KE SANCHEZ DO) Current Medications: Current Medications Medications (Trade) Dose Ordered Sig/Jasmeet Start Time Stop Time Status Last Admin Dose Admin Fentanyl Citrate (Fentanyl 2ml Vial) 50 mcg 1X ONCE 12/31/19 16:15 12/31/19 16:16 Ondansetron HCl (Zofran) 4 mg 1X ONCE 12/31/19 16:15 12/31/19 16:16 Sodium Chloride 1,000 ml @ 1,000 mls/hr 1X ONCE 12/31/19 16:00 12/31/19 16:59 (KE SANCHEZ DO) Allergies: Allergies: Allergies Coded Allergies Type Severity Reaction Last Updated Verified adhesive Allergy Intermediate Rash 07/15/19 Yes latex Allergy Intermediate Rash 07/15/19 Yes (KE SANCHEZ DO) Physical Exam: PE: Constitutional: Well developed, well nourished, no acute distress, non-toxic appearance. [] HENT: Normocephalic, atraumatic, bilateral external ears normal, oropharynx moist, no oral exudates, nose normal. [] Eyes: PERRLA, EOMI, conjunctiva normal, no discharge. [] Neck: Normal range of motion, no tenderness, supple, no stridor. [] Cardiovascular:Heart rate regular rhythm, no murmur [] Lungs & Thorax: Bilateral breath sounds clear to auscultation [] Abdomen: Bowel sounds normal, soft, there is tenderness to palpation in the periumbilical and suprapubic area, right lower abdominal area, Skin: Warm, dry, no erythema, no rash. [] Back: No tenderness, no CVA tenderness. [] Extremities: No tenderness, no cyanosis, no clubbing, ROM intact, no edema. [] Neurologic: Alert and oriented X 3, normal motor function, normal sensory function, no focal deficits noted. [] Psychologic: Affect normal, judgement normal, mood normal. [] (KE SANCHEZ DO) Current Patient Data: Labs: Laboratory Tests Test 12/31/19 15:48 12/31/19 15:55 Urine Collection Type Unknown Urine Color Yellow Urine Clarity Clear Urine pH 6.0 (<5.0-8.0) Urine Specific [place] 1.020 (1.000-1.030) Urine Protein Negative mg/dL (NEG-TRACE) Urine Glucose (UA) Negative mg/dL (NEG) Urine Ketones (Stick) Trace mg/dL (NEG) Urine Blood Negative (NEG) Urine Nitrite Negative (NEG) Urine Bilirubin Negative (NEG) Urine Urobilinogen Dipstick 0.2 mg/dL (0.2 mg/dL) Urine Leukocyte Esterase Negative (NEG) Urine RBC 0 /HPF (0-2) Urine WBC 0 /HPF (0-4) Urine Bacteria 0 /HPF (0-FEW) Urine Mucus Mod /LPF POC Urine HCG, Qualitative Hcg negative (Negative) (KE SANCHEZ DO) EKG: EKG: [] (KE SANCHEZ DO) Radiology/Procedures: Radiology/Procedures: [] (KE SANCHEZ DO) Radiology/Procedures: [facility] [address] [place], [place] [id number] IMAGING REPORT Signed PATIENT: KIEL HAMMER ACCOUNT: [id number] : 1980 LOCATION: ER AGE: 39 SEX: F EXAM STATUS: REG ER ORD. PHYSICIAN: KE SANCHEZ DO REASON: LOWER ABDOMINAL PAIN, S/P HYSTERECTOMY ON 12/09/19, LOST 10 LBS, CACHECTIC. PROCEDURE: CT ABD PELV W/ORAL&IV CONTRAST CT scan of the abdomen and pelvis with contrast 12/31/2019 CLINICAL HISTORY: Lower abdominal pain. Hysterectomy on 12/09/2019. Cachexia and weight loss. TECHNIQUE: After the oral and intravenous administration of contrast, contiguous, 5 mm axial sections were obtained through the abdomen and pelvis. 75 cc of Omnipaque 300 were administered intravenously during this examination. One or more of the following individualized dose reduction techniques were utilized for this study: 1. Automated exposure control. 2. Adjustment of the mA and/or kV according to patient size. 3. Use of iterative reconstruction technique. FINDINGS: Comparison is made to the patient's pelvic ultrasound dated 12/22/2019. Additional comparison is made to the patient's CT scan of the abdomen and pelvis dated 12/21/2019. This was performed at [facility]. Images through the lung bases demonstrate minimal dependent subsegmental atelectasis bilaterally. The liver is mildly enlarged measuring 21 cm in length. Decreased attenuation of the liver parenchyma is seen consistent with fatty infiltration. The spleen, pancreas, adrenal glands and kidneys are within normal limits. The abdominal aorta tapers normally. The gallbladder is well-distended. No free fluid or free air is seen within the abdomen. There is no evidence of bowel obstruction. Air and stool are seen throughout the colon. The appendix is well-visualized and is within normal limits. Images through the pelvis demonstrate the urinary bladder distended with urine. Surgical clips are seen in the inferior rectum, unchanged. Calcifications are seen within the pelvis consistent with phleboliths. No pelvic mass or free fluid is noted. No pelvic hematoma is seen. The osseous structures are unchanged. IMPRESSION: No acute abnormality is seen. Electronically signed by: Delmar Trevino MD (12/31/2019 6:43 PM) [id number] DICTATED and SIGNED BY: DELMAR TREVINO MD DATE: 12/31/191842 (MAXIMILIANO QUEZADA DO) Course & Med Decision Making: Course & Med Decision Making Pertinent Labs and Imaging studies reviewed. (See chart for details) Patient is a 39-year-old female who was sent here from [facility] doctor for severe pelvic pain, CT scan her abdomen pelvic is been at this time, her care is endorsed to the incoming physician Dr. Quezada. (KE SANCHEZ DO) Course & Med Decision Making Patient is a well-appearing 39-year-old female who presents with chief complaint of abdominal pain status post hysterectomy on December 08. Chart review performed. Patient does have multiple visits to outside hospital as well as our facility for intractable abdominal pain. She does have a documented 10 pound weight loss over that time period. CT images and ultra images have been grossly unremarkable. Labs today been normal. I did discuss case with the patient's electron microscopist Dr. Lewis. No identified cause of her abdominal discomfort can be found. However given her intractable pain with document weight loss I do feel she would benefit from hospitalization for potential GI evaluation. Patient agreeable to this. (MAXIMILIANO QUEZADA DO) Dragon Disclaimer: Dragon Disclaimer: This electronic medical record was generated, in whole or in part, using a voice recognition dictation system. (KE SANCHEZ DO) Departure Departure Impression: Primary Impression: Pelvic pain Additional Impression: Unexplained weight loss Disposition: ADMITTED INPATIENT Condition: STABLE Referrals: HOLGER WEBER (PCP) Justicifation of Admission Dx: Justifications for Admission: Justification of Admission Dx: Yes (KE SANCHEZ DO) Justification of Admission Dx: Yes Comments: intractable abd pain and unexplained weight loss (MAXIMILIANO QUEZADA DO) KE SANCHEZ DO Dec 31, 2019 16:15 MAXIMILIANO QUEZADA DO Dec 31, 2019 20:03
[2019-12-31 16:25] LABS: CALCIUM 9.1 mg/dL (8.5-10.1); CREATININE 0.6 mg/dL (0.6-1.0); GFR 112.5; POTASSIUM 3.6 mmol/L (3.5-5.1)
[2019-12-31 16:27] LABS: PROTHROMBIN TIME PATIENT 13.7 SEC (11.7-14.0)
[2019-12-31 16:31] LABS: ALBUMIN/GLOBULIN RATIO 1.2 (1.0-1.7); TOTAL BILIRUBIN 0.4 mg/dL (0.2-1.0); TOTAL PROTEIN 7.4 g/dL (6.4-8.2)
[2019-12-31] MEDS ORDERED: CONTRAST GIVEN. MC PRN (17:30)
[2019-12-31] MEDS ORDERED: IOHEXOL 300 MG/ML 100ML VIAL. IV ONE (17:30)
[2019-12-31] MEDS ORDERED: IOHEXOL 240 MG/ML 50ML VIAL. PO ONE (17:30)
[2019-12-31] MEDS ORDERED: METOCLOPRAMIDE HCL 10 MG/2 ML VIAL. IVP ONE (18:00)
--- NOTE | 2019-12-31 18:45 | RAD ---
CT scan of the abdomen and pelvis with contrast 12/31/2019 CLINICAL HISTORY: Lower abdominal pain. Hysterectomy on 12/09/2019. Cachexia and weight loss. TECHNIQUE: After the oral and intravenous administration of contrast, contiguous, 5 mm axial sections were obtained through the abdomen and pelvis. 75 cc of Omnipaque 300 were administered intravenously during this examination. One or more of the following individualized dose reduction techniques were utilized for this study: 1. Automated exposure control. 2. Adjustment of the mA and/or kV according to patient size. 3. Use of iterative reconstruction technique. FINDINGS: Comparison is made to the patient's pelvic ultrasound dated 12/22/2019. Additional comparison is made to the patient's CT scan of the abdomen and pelvis dated 12/21/2019. This was performed at [facility]. Images through the lung bases demonstrate minimal dependent subsegmental atelectasis bilaterally. The liver is mildly enlarged measuring 21 cm in length. Decreased attenuation of the liver parenchyma is seen consistent with fatty infiltration. The spleen, pancreas, adrenal glands and kidneys are within normal limits. The abdominal aorta tapers normally. The gallbladder is well-distended. No free fluid or free air is seen within the abdomen. There is no evidence of bowel obstruction. Air and stool are seen throughout the colon. The appendix is well-visualized and is within normal limits. Images through the pelvis demonstrate the urinary bladder distended with urine. Surgical clips are seen in the inferior rectum, unchanged. Calcifications are seen within the pelvis consistent with phleboliths. No pelvic mass or free fluid is noted. No pelvic hematoma is seen. The osseous structures are unchanged. IMPRESSION: No acute abnormality is seen. Electronically signed by: Delmar Trevino MD (12/31/2019 6:43 PM) [id number]
[2019-12-31] MEDS ORDERED: ONDANSETRON PF 4 MG/2 ML VIAL. IV PRN (20:00)
[2019-12-31] MEDS ORDERED: HYDROcodone/APAP 5/325MG 1 TAB TABLET PO PRN ×2 (20:15)
[2019-12-31] MEDS ORDERED: ZOLPIDEM 5 MG TABLET. PO PRN (20:30)
[2019-12-31] MEDS ORDERED: IBUPROFEN 200 MG TABLET. PO PRN (20:30)
[2019-12-31] MEDS: DOCUSATE SODIUM 100 MG CAPSULE. PO SCH (21:00)
[2019-12-31 21:30] VITALS: BP 103/73
[2019-12-31] MEDS ORDERED: FAMOTIDINE 20 MG TABLET. PO SCH (22:15)
[2019-12-31] MEDS: diazePAM 5 MG TABLET PO SCH (22:52)
[2019-12-31] MEDS: oxyCODONE/APAP 5/325 1 TAB TABLET PO PRN (22:52)
[2019-12-31] MEDS: HEPARIN for SUB-Q USE 5,000 UNIT/ML VIAL. SQ SCH (22:58)
[2019-12-31 23:00] VITALS: BP 100/70
--- NOTE | 2019-12-31 23:00 | NUR ---
ADMIT NOTE The patient, KIEL HAMMER, 39 y/o, F admitted by VIET CHONG MD, was given written information regarding hospital policies, unit procedures and contact persons. Patient A&O, afebrile with VSS upon admission. Patient orientated to room, admission packet reviewed and plan of care discussed. Patient's home medications reviewed and allergies verified; all pt belongings checked and left in room with patient. Patient in bed, bed in lowest/locked position and call light within reach; no other needs voiced at this time. Addendum: 01/01/20 at 0627 by YANIRA CRAWFORD RN Orders to restart home medications rcvd from Dr. Chong. informed that patient reports active ulcer found in recent GI scope.
[2020-01-01] MEDS: MORPHINE SULFATE 4 MG/ML VIAL. IV PRN ×4 (01:38→14:15)
[2020-01-01 03:00] VITALS: BP 93/64
[2020-01-01 04:39] LABS: BASO % 1 % (0-3); EOS # 0.2 x10^3/uL (0.0-0.7); EOS % 4 % (0-3); HEMATOCRIT 34.5 % (36.0-47.0); HEMOGLOBIN 11.9 g/dL (12.0-15.5); LYMPH % 57 % (24-48); MEAN CORPUSCULAR HEMOGLOBIN 31 pg (25-35); MEAN CORPUSCULAR HGB CONC 35 g/dL (31-37); MEAN CORPUSCULAR VOLUME 91 fL (79-100); MONO # 0.4 x10^3/uL (0.0-1.1); MONO % 7 % (0-9); NEUT # 1.6 x10^3/uL (1.8-7.7); NEUT % 31 % (31-73); PLATELET COUNT 155 x10^3/uL (140-400); RED CELL DISTRIBUTION WIDTH 12.6 % (11.5-14.5); WHITE BLOOD COUNT 5.2 x10^3/uL (4.0-11.0)
[2020-01-01 05:10] LABS: CALCIUM 8.2 mg/dL (8.5-10.1); CREATININE 0.5 mg/dL (0.6-1.0); GFR 138.8; POTASSIUM 3.4 mmol/L (3.5-5.1)
[2020-01-01] MEDS: oxyCODONE/APAP 5/325 1 TAB TABLET PO PRN ×2 (05:35→20:22)
[2020-01-01] MEDS: HEPARIN for SUB-Q USE 5,000 UNIT/ML VIAL. SQ SCH ×3 (05:36→20:30)
[2020-01-01 07:00] VITALS: BP 98/67
[2020-01-01] MEDS: MULTIVITAMIN with MINERAL TABLET. PO SCH (09:00)
[2020-01-01] MEDS ORDERED: C.DIFF MED SCREEN BY RX. MC ONE (09:00)
[2020-01-01] MEDS: DOCUSATE SODIUM 100 MG CAPSULE. PO SCH ×3 (09:00→20:21)
--- NOTE | 2020-01-01 09:29 | NUR ---
SW following. Discussed with RN, pt from home with family, room air, clear liquid diet. GI consult. SW will continue to follow.
--- NOTE | 2020-01-01 09:43 | NUR ---
Pharmacy Medication Review S: Consulted for medication review re: C.diff Risk Assessment score of 4 O: KIEL HAMMER is a 39 year old with: Previous C.diff infection: No Previous hospitalization: Within 30 days Recent antibiotics: Within 30 days Use of gastric acid suppressor: No Transfer from [place]/LTAC: No Current antibiotic regimen: NONE Current acid suppression regimen: FAMOTIDINE A: Patient has been identified as having risk factors for C.diff infection as noted above. P: ABX DE-ESCALATION RECOMMENDED: PT NOT ON ABX PROBIOTIC ORDERED: NO PPI CHANGED TO [id number]: PT ON H2RA CAIT SCH[facility]ER [facility], 01/01/20 0934
--- NOTE | 2020-01-01 09:55 | PDOC1 ---
History and Physical Date of Admission Date of Admission DATE: 01/01/20 TIME: 09:31 Identification/Chief Complaint Chief Complaint Abdominal pain Source Source: Patient History of Present Illness History of Present Illness Patient is a 39-year-old female with past medical history of endometriosis status post hysterectomy, peptic ulcer disease, colon polyps, who presents with constant abdominal pain. Patient has a history of chronic abdominal pain over the past 2 years secondary to abdominal hernia with mesh repair in 2018 and peptic ulcer disease. She had a hysterectomy on 12/09/2019, and reports worsening of her abdominal pain since that time. Patient states her pain is 7/10 at worst and throbbing in nature. She takes Tylenol and tramadol for pain without significant improvement. She reports associated decreased appetite and weight loss. She previously reports having plans to have her abdominal mesh removed but this elective procedure changed due to COVID-19. She denies any dark stools, bloody stools, vomiting. Past Medical History Past Medical History Anxiety, endometriosis, peptic ulcer disease, Lyme disease, colon polyps Cardiovascular: No pertinent hx Pulmonary: No pertinent hx GI: Other Heme/Onc: No pertinent hx Psych: No pertinent hx Past Surgical History Past Surgical History Hysterectomy, abdominal hernia repair Family History Family History Colon cancer grandmother Social History Smoke: <1 pack per day ALCOHOL: none Drugs: None Current Problem List Problem List Problems Medical Problems: (1) Unexplained weight loss Status: Acute Current Medications Current Medications Current Medications Sodium Chloride 1,000 ml @ 1,000 mls/hr 1X ONCE IV Last administered on 12/31/19at 16:25; Start 12/31/19 at 16:00; Stop 12/31/19 at 16:59; Status DC Fentanyl Citrate (Fentanyl 2ml Vial) 50 mcg 1X ONCE IVP Last administered on 12/31/19at 16:25; Start 12/31/19 at 16:15; Stop 12/31/19 at 16:16; Status DC Ondansetron HCl (Zofran) 4 mg 1X ONCE IVP Last administered on 12/31/19at 16:25; Start 12/31/19 at 16:15; Stop 12/31/19 at 16:16; Status DC Iohexol (Omnipaque 300 Mg/ml) 75 ml 1X ONCE IV Last administered on 12/31/19at 17:30; Start 12/31/19 at 17:30; Stop 12/31/19 at 17:31; Status DC Iohexol (Omnipaque 240 Mg/ml) 30 ml 1X ONCE PO Last administered on 12/31/19at 17:30; Start 12/31/19 at 17:30; Stop 12/31/19 at 17:31; Status DC Info (CONTRAST GIVEN -- Rx MONITORING) 1 each PRN DAILY PRN MC SEE COMMENTS; Start 12/31/19 at 17:30; Stop 01/02/20 at 17:29 Fentanyl Citrate (Fentanyl 2ml Vial) 50 mcg 1X ONCE IVP Last administered on 12/31/19at 17:55; Start 12/31/19 at 18:00; Stop 12/31/19 at 18:01; Status DC Metoclopramide HCl (Reglan Vial) 10 mg 1X ONCE IVP Last administered on 12/31/19at 17:56; Start 12/31/19 at 18:00; Stop 12/31/19 at 18:01; Status DC Ondansetron HCl (Zofran) 4 mg PRN Q8HRS PRN IV NAUSEA/VOMITING Last administere d on 01/01/20at 05:37; Start 12/31/19 at 20:00; Stop 01/01/20 at 19:59 Morphine Sulfate (Morphine Sulfate) 4 mg PRN Q2HR PRN IV PAIN Last administered on 01/01/20at 08:28; Start 12/31/19 at 20:00; Stop 01/01/20 at 19:59 Morphine Sulfate (Morphine Sulfate) 2 mg PRN Q1HR PRN IV PAIN; Start 12/31/19 at 20:15 Acetaminophen/ Hydrocodone Bitart (Lortab 5/325) 1 tab PRN Q4HRS PRN PO MILD PAIN 1-3; Start 12/31/19 at 20:15 Acetaminophen/ Hydrocodone Bitart (Lortab 5/325) 2 tab PRN Q4HRS PRN PO MODERATE PAIN, SEVERE PAIN; Start 12/31/19 at 20:15 Docusate Sodium (Colace) 100 mg BID PO ; Start 12/31/19 at 21:00 Heparin Sodium (Porcine) (Heparin Sodium) 5,000 unit Q8HRS SQ Last administered on 01/01/20at 05:36; Start 12/31/19 at 22:00 Zolpidem Tartrate (Ambien) 5 mg PRN QHS PRN PO INSOMNIA; Start 12/31/19 at 20:30 Ibuprofen (Motrin) 600 mg PRN Q6HRS PRN PO INFLAMMATION; Start 12/31/19 at 20:30 Diazepam (Valium) 7.5 mg HS PO Last administered on 12/31/19at 22:52; Start 12/31/19 at 22:15 Famotidine (Pepcid) 20 mg HS PO Last administered on 12/31/19at 22:51; Start 12/31/19 at 22:15 Multivitamins (Thera M Plus) 1 tab DAILY PO ; Start 01/01/20 at 09:00 Oxycodone/ Acetaminophen (Percocet 5/325) 1 tab PRN Q6HRS PRN PO PAIN Last administered on 01/01/20at 05:35; Start 12/31/19 at 22:15 Pharmacy Consult (C.diff Med Screen By Rx) 1 each 1X ONCE MC ; Start 01/01/20 at 09:00; Stop 01/01/20 at 09:01; Status DC Active Scripts Active Zofran (Ondansetron Hcl) 4 Mg Tablet 4 Mg PO PRN TID PRN nausea/vomiting Dicyclomine Hcl 20 Mg Tablet 1 Tab PO TID Pepcid (Famotidine) 20 Mg Tablet 20 Mg PO HS 14 Days Reported Tramadol Hcl 50 Mg Tablet 50 Mg PO BID PRN Valium (Diazepam) 5 Mg Tablet 7.5 Mg PO HS Multivitamins (Multivitamin) 1 Each Capsule 1 Cap PO DAILY 30 Days Allergies Allergies: Coded Allergies: adhesive (Verified Allergy, Intermediate, Rash, 07/15/19) latex (Verified Allergy, Intermediate, Rash, 07/15/19) ROS General: No: Chills, Appetite PSYCHOLOGICAL ROS: No: Concentration difficultie, Memory difficulties Eyes: No Blurry vision, No Double vision HEENT: No: Nasal congestion, Sore Throat ALLERGY AND IMMUNOLOGY: No: Hives, Seasonal Allergies Hematological and Lymphatic: No: Bleeding Problems, Blood Clots Respiratory: No: Cough, Shortness of breath Cardiovascular: No Chest Pain, No Palpitations Gastrointestinal: Yes Nausea, Yes Abdominal Pain; No Vomiting, No Melena Genitourinary: No Dysuria, No Hematuria Musculoskeletal: No Joint Pain, No Joint Swelling Neurological: No Confusion, No Dizziness, No Headaches Skin: No Dry Skin, No Rash Physical Exam General: Alert, Oriented X3, Cooperative, No acute distress HEENT: PERRLA Lungs: Clear to auscultation, Normal air movement Heart: RRR, no jug vein distention Cardiovascular: S1, S2 Abdomen: Normal bowel sounds, Soft, Other (Bilateral lower quadrant abdominal tenderness) Extremities: No clubbing, No cyanosis, No edema Skin: No rashes, No breakdown Neuro: Normal tone, Sensation intact Psych/Mental Status: Mental status NL, Mood NL Vitals Vitals Vital Signs Date Time Temp Pulse Resp B/P (MAP) Pulse Ox O2 Delivery O2 Flow Rate FiO2 01/01/20 08:28 Room Air 01/01/20 07:00 97.6 87 20 98/67 (77) 97 97.6 Labs Labs Laboratory Tests Test 12/31/19 15:48 12/31/19 15:55 12/31/19 16:07 01/01/20 04:05 Urine Collection Type Unknown Urine Color Yellow Urine Clarity Clear Urine pH 6.0 (<5.0-8.0) Urine Specific [place] 1.020 (1.000-1.030) Urine Protein Negative mg/dL (NEG-TRACE) Urine Glucose (UA) Negative mg/dL (NEG) Urine Ketones (Stick) Trace mg/dL (NEG) Urine Blood Negative (NEG) Urine Nitrite Negative (NEG) Urine Bilirubin Negative (NEG) Urine Urobilinogen Dipstick 0.2 mg/dL (0.2 mg/dL) Urine Leukocyte Esterase Negative (NEG) Urine RBC 0 /HPF (0-2) Urine WBC 0 /HPF (0-4) Urine Bacteria 0 /HPF (0-FEW) Urine Mucus Mod /LPF Bedside Urine HCG, Qualitative Hcg negative (Negative) White Blood Count 7.1 x10^3/uL (4.0-11.0) 5.2 x10^3/uL (4.0-11.0) Red Blood Count 4.50 x10^6/uL (3.50-5.40) 3.80 x10^6/uL (3.50-5.40) Hemoglobin 14.0 g/dL (12.0-15.5) 11.9 g/dL (12.0-15.5) Hematocrit 40.7 % (36.0-47.0) 34.5 % (36.0-47.0) Mean Corpuscular Volume 91 fL (79-100) 91 fL (79-100) Mean Corpuscular Hemoglobin 31 pg (25-35) 31 pg (25-35) Mean Corpuscular Hemoglobin Concent 34 g/dL (31-37) 35 g/dL (31-37) Red Cell Distribution Width 12.6 % (11.5-14.5) 12.6 % (11.5-14.5) Platelet Count 206 x10^3/uL (140-400) 155 x10^3/uL (140-400) Neutrophils (%) (Auto) 50 % (31-73) 31 % (31-73) Lymphocytes (%) (Auto) 41 % (24-48) 57 % (24-48) Monocytes (%) (Auto) 6 % (0-9) 7 % (0-9) Eosinophils (%) (Auto) 2 % (0-3) 4 % (0-3) Basophils (%) (Auto) 1 % (0-3) 1 % (0-3) Neutrophils # (Auto) 3.5 x10^3/uL (1.8-7.7) 1.6 x10^3/uL (1.8-7.7) Lymphocytes # (Auto) 2.9 x10^3/uL (1.0-4.8) 3.0 x10^3/uL (1.0-4.8) Monocytes # (Auto) 0.5 x10^3/uL (0.0-1.1) 0.4 x10^3/uL (0.0-1.1) Eosinophils # (Auto) 0.1 x10^3/uL (0.0-0.7) 0.2 x10^3/uL (0.0-0.7) Basophils # (Auto) 0.1 x10^3/uL (0.0-0.2) 0.0 x10^3/uL (0.0-0.2) Prothrombin Time 13.7 SEC (11.7-14.0) Prothromb Time International Ratio 1.1 (0.8-1.1) Activated Partial Thromboplast Time 26 SEC (24-38) Sodium Level 140 mmol/L (136-145) 142 mmol/L (136-145) Potassium Level 3.6 mmol/L (3.5-5.1) 3.4 mmol/L (3.5-5.1) Chloride Level 104 mmol/L (98-107) 107 mmol/L (98-107) Carbon Dioxide Level 26 mmol/L (21-32) 29 mmol/L (21-32) Anion Gap 10 (6-14) 6 (6-14) Blood Urea Nitrogen 10 mg/dL (7-20) 7 mg/dL (7-20) Creatinine 0.6 mg/dL (0.6-1.0) 0.5 mg/dL (0.6-1.0) Estimated GFR (Cockcroft-Gault) 112.5 138.8 BUN/Creatinine Ratio 17 (6-20) Glucose Level 100 mg/dL (70-99) 87 mg/dL (70-99) Calcium Level 9.1 mg/dL (8.5-10.1) 8.2 mg/dL (8.5-10.1) Total Bilirubin 0.4 mg/dL (0.2-1.0) Aspartate Amino Transf (AST/SGOT) 13 U/L (15-37) Alanine Aminotransferase (ALT/SGPT) 18 U/L (14-59) Alkaline Phosphatase 49 U/L (46-116) Total Protein 7.4 g/dL (6.4-8.2) Albumin 4.0 g/dL (3.4-5.0) Albumin/Globulin Ratio 1.2 (1.0-1.7) Lipase 205 U/L (73-393) Iron Level 105 ug/dL (50-170) Total Iron Binding Capacity 209 ug/dL (250-450) Iron Saturation 50 % (15-34) Ferritin 63 ng/mL (8-252) C-Reactive Protein, Quantitative < 0.5 mg/L (0-3.3) Laboratory Tests Test 12/31/19 15:48 12/31/19 15:55 12/31/19 16:07 01/01/20 04:05 Urine Collection Type Unknown Urine Color Yellow Urine Clarity Clear Urine pH 6.0 (<5.0-8.0) Urine Specific [place] 1.020 (1.000-1.030) Urine Protein Negative mg/dL (NEG-TRACE) Urine Glucose (UA) Negative mg/dL (NEG) Urine Ketones (Stick) Trace mg/dL (NEG) Urine Blood Negative (NEG) Urine Nitrite Negative (NEG) Urine Bilirubin Negative (NEG) Urine Urobilinogen Dipstick 0.2 mg/dL (0.2 mg/dL) Urine Leukocyte Esterase Negative (NEG) Urine RBC 0 /HPF (0-2) Urine WBC 0 /HPF (0-4) Urine Bacteria 0 /HPF (0-FEW) Urine Mucus Mod /LPF Bedside Urine HCG, Qualitative Hcg negative (Negative) White Blood Count 7.1 x10^3/uL (4.0-11.0) 5.2 x10^3/uL (4.0-11.0) Red Blood Count 4.50 x10^6/uL (3.50-5.40) 3.80 x10^6/uL (3.50-5.40) Hemoglobin 14.0 g/dL (12.0-15.5) 11.9 g/dL (12.0-15.5) Hematocrit 40.7 % (36.0-47.0) 34.5 % (36.0-47.0) Mean Corpuscular Volume 91 fL (79-100) 91 fL (79-100) Mean Corpuscular Hemoglobin 31 pg (25-35) 31 pg (25-35) Mean Corpuscular Hemoglobin Concent 34 g/dL (31-37) 35 g/dL (31-37) Red Cell Distribution Width 12.6 % (11.5-14.5) 12.6 % (11.5-14.5) Platelet Count 206 x10^3/uL (140-400) 155 x10^3/uL (140-400) Neutrophils (%) (Auto) 50 % (31-73) 31 % (31-73) Lymphocytes (%) (Auto) 41 % (24-48) 57 % (24-48) Monocytes (%) (Auto) 6 % (0-9) 7 % (0-9) Eosinophils (%) (Auto) 2 % (0-3) 4 % (0-3) Basophils (%) (Auto) 1 % (0-3) 1 % (0-3) Neutrophils # (Auto) 3.5 x10^3/uL (1.8-7.7) 1.6 x10^3/uL (1.8-7.7) Lymphocytes # (Auto) 2.9 x10^3/uL (1.0-4.8) 3.0 x10^3/uL (1.0-4.8) Monocytes # (Auto) 0.5 x10^3/uL (0.0-1.1) 0.4 x10^3/uL (0.0-1.1) Eosinophils # (Auto) 0.1 x10^3/uL (0.0-0.7) 0.2 x10^3/uL (0.0-0.7) Basophils # (Auto) 0.1 x10^3/uL (0.0-0.2) 0.0 x10^3/uL (0.0-0.2) Prothrombin Time 13.7 SEC (11.7-14.0) Prothromb Time International Ratio 1.1 (0.8-1.1) Activated Partial Thromboplast Time 26 SEC (24-38) Sodium Level 140 mmol/L (136-145) 142 mmol/L (136-145) Potassium Level 3.6 mmol/L (3.5-5.1) 3.4 mmol/L (3.5-5.1) Chloride Level 104 mmol/L (98-107) 107 mmol/L (98-107) Carbon Dioxide Level 26 mmol/L (21-32) 29 mmol/L (21-32) Anion Gap 10 (6-14) 6 (6-14) Blood Urea Nitrogen 10 mg/dL (7-20) 7 mg/dL (7-20) Creatinine 0.6 mg/dL (0.6-1.0) 0.5 mg/dL (0.6-1.0) Estimated GFR (Cockcroft-Gault) 112.5 138.8 BUN/Creatinine Ratio 17 (6-20) Glucose Level 100 mg/dL (70-99) 87 mg/dL (70-99) Calcium Level 9.1 mg/dL (8.5-10.1) 8.2 mg/dL (8.5-10.1) Total Bilirubin 0.4 mg/dL (0.2-1.0) Aspartate Amino Transf (AST/SGOT) 13 U/L (15-37) Alanine Aminotransferase (ALT/SGPT) 18 U/L (14-59) Alkaline Phosphatase 49 U/L (46-116) Total Protein 7.4 g/dL (6.4-8.2) Albumin 4.0 g/dL (3.4-5.0) Albumin/Globulin Ratio 1.2 (1.0-1.7) Lipase 205 U/L (73-393) Iron Level 105 ug/dL (50-170) Total Iron Binding Capacity 209 ug/dL (250-450) Iron Saturation 50 % (15-34) Ferritin 63 ng/mL (8-252) C-Reactive Protein, Quantitative < 0.5 mg/L (0-3.3) VTE Prophylaxis Ordered VTE Prophylaxis Devices: Yes VTE Pharmacological Prophylaxi: No Assessment/Plan Assessment/Plan Intractable abdominal pain, anemia, peptic ulcer disease, rule out GI bleed Plan: Patient had a sudden drop in hemoglobin overnight. She admits to a history of peptic ulcer disease, but denies any dark stools or bloody stools. Consulted GI. Discussed with patient that pain management will be an issue for her until she can have abdominal mesh removed and lysis abdominal adhesions. Pain management will be difficult given her current use of benzodiazepines. Discussed with patient following up with PCP to help with weaning benzodiazepines and referral to automotive painter. She lives at home with 4 her and 4 children, and denies any need for assistance with activities of daily living. She notes her has her surrogate decision- maker. Full code. Justifications for Admission Other Justification VIET CHONG MD Jan 01, 2020 09:55
[2020-01-01] MEDS ORDERED: ONDANSETRON PF 4 MG/2 ML VIAL. IVP PRN (10:00)
[2020-01-01] MEDS ORDERED: HYDROcodone/APAP 5/325MG 1 TAB TABLET PO PRN (10:00)
--- NOTE | 2020-01-01 10:03 | PDOC2 ---
GI CONSULT Date of Service: DATE: 01/01/20 TIME: 10:03 Reason For Consult: intractable abd pain HPI: HPI: 39 y/o female w/ h/o endometriosis who had hysterectomy and BSO last month. Post-operative pain improved but then developed diffuse abdominal pain, nausea, and decreased appetite. Has lost ~10 pounds in a few weeks. H/o reflux after eating acidic foods on Pepcid. Additional h/o "ulcer" on EGD (can't remember where done in [place] area) 1.5 years ago - thought related to NSAIDs. Was on PPI for awhile. H/o alternating diarrhea and constipation - unchanged. Had colonoscopy w/ polyps ~8 years ago in [place]. Denies dysphagia, vomiting, hematochezia, and melena. No GB, liver, or pancreas history. Has used ibuprofen again since hysterectomy, also used oxycodone. PMH: PMH: headaches, endometriosis, Lyme disease tubal ligation (twice), hysterectomy/BSO, hemorrhoidectomy, hernia repair w/ me sh, right rotator cuff repair FH: Family History: Other (father - ulcers) Social History: Smoke: <1 pack per day ALCOHOL: none Drugs: None ROS: GEN: Denies fevers, chills, sweats HEENT: Denies blurred vision, sore throat CV: Denies chest pain RESP: Denies shortness of air, cough GI: Per HPI : Denies hematuria, dysuria ENDO: +weight loss NEURO: Denies confusion, dizziness MSK: Denies weakness, joint pain/swelling SKIN: Denies jaundice, pruritus Vitals: Vitals: Vital Signs Date Time Temp Pulse Resp B/P (MAP) Pulse Ox O2 Delivery O2 Flow Rate FiO2 01/01/20 08:58 Room Air 01/01/20 07:00 97.6 87 20 98/67 (77) 97 97.6 Labs: Labs: Laboratory Tests Test 12/31/19 15:48 12/31/19 15:55 12/31/19 16:07 01/01/20 04:05 Urine Collection Type Unknown Urine Color Yellow Urine Clarity Clear Urine pH 6.0 (<5.0-8.0) Urine Specific [place] 1.020 (1.000-1.030) Urine Protein Negative mg/dL (NEG-TRACE) Urine Glucose (UA) Negative mg/dL (NEG) Urine Ketones (Stick) Trace mg/dL (NEG) Urine Blood Negative (NEG) Urine Nitrite Negative (NEG) Urine Bilirubin Negative (NEG) Urine Urobilinogen Dipstick 0.2 mg/dL (0.2 mg/dL) Urine Leukocyte Esterase Negative (NEG) Urine RBC 0 /HPF (0-2) Urine WBC 0 /HPF (0-4) Urine Bacteria 0 /HPF (0-FEW) Urine Mucus Mod /LPF Bedside Urine HCG, Qualitative Hcg negative (Negative) White Blood Count 7.1 x10^3/uL (4.0-11.0) 5.2 x10^3/uL (4.0-11.0) Red Blood Count 4.50 x10^6/uL (3.50-5.40) 3.80 x10^6/uL (3.50-5.40) Hemoglobin 14.0 g/dL (12.0-15.5) 11.9 g/dL (12.0-15.5) Hematocrit 40.7 % (36.0-47.0) 34.5 % (36.0-47.0) Mean Corpuscular Volume 91 fL (79-100) 91 fL (79-100) Mean Corpuscular Hemoglobin 31 pg (25-35) 31 pg (25-35) Mean Corpuscular Hemoglobin Concent 34 g/dL (31-37) 35 g/dL (31-37) Red Cell Distribution Width 12.6 % (11.5-14.5) 12.6 % (11.5-14.5) Platelet Count 206 x10^3/uL (140-400) 155 x10^3/uL (140-400) Neutrophils (%) (Auto) 50 % (31-73) 31 % (31-73) Lymphocytes (%) (Auto) 41 % (24-48) 57 % (24-48) Monocytes (%) (Auto) 6 % (0-9) 7 % (0-9) Eosinophils (%) (Auto) 2 % (0-3) 4 % (0-3) Basophils (%) (Auto) 1 % (0-3) 1 % (0-3) Neutrophils # (Auto) 3.5 x10^3/uL (1.8-7.7) 1.6 x10^3/uL (1.8-7.7) Lymphocytes # (Auto) 2.9 x10^3/uL (1.0-4.8) 3.0 x10^3/uL (1.0-4.8) Monocytes # (Auto) 0.5 x10^3/uL (0.0-1.1) 0.4 x10^3/uL (0.0-1.1) Eosinophils # (Auto) 0.1 x10^3/uL (0.0-0.7) 0.2 x10^3/uL (0.0-0.7) Basophils # (Auto) 0.1 x10^3/uL (0.0-0.2) 0.0 x10^3/uL (0.0-0.2) Prothrombin Time 13.7 SEC (11.7-14.0) Prothromb Time International Ratio 1.1 (0.8-1.1) Activated Partial Thromboplast Time 26 SEC (24-38) Sodium Level 140 mmol/L (136-145) 142 mmol/L (136-145) Potassium Level 3.6 mmol/L (3.5-5.1) 3.4 mmol/L (3.5-5.1) Chloride Level 104 mmol/L (98-107) 107 mmol/L (98-107) Carbon Dioxide Level 26 mmol/L (21-32) 29 mmol/L (21-32) Anion Gap 10 (6-14) 6 (6-14) Blood Urea Nitrogen 10 mg/dL (7-20) 7 mg/dL (7-20) Creatinine 0.6 mg/dL (0.6-1.0) 0.5 mg/dL (0.6-1.0) Estimated GFR (Cockcroft-Gault) 112.5 138.8 BUN/Creatinine Ratio 17 (6-20) Glucose Level 100 mg/dL (70-99) 87 mg/dL (70-99) Calcium Level 9.1 mg/dL (8.5-10.1) 8.2 mg/dL (8.5-10.1) Total Bilirubin 0.4 mg/dL (0.2-1.0) Aspartate Amino Transf (AST/SGOT) 13 U/L (15-37) Alanine Aminotransferase (ALT/SGPT) 18 U/L (14-59) Alkaline Phosphatase 49 U/L (46-116) Total Protein 7.4 g/dL (6.4-8.2) Albumin 4.0 g/dL (3.4-5.0) Albumin/Globulin Ratio 1.2 (1.0-1.7) Lipase 205 U/L (73-393) Iron Level 105 ug/dL (50-170) Total Iron Binding Capacity 209 ug/dL (250-450) Iron Saturation 50 % (15-34) Ferritin 63 ng/mL (8-252) C-Reactive Protein, Quantitative < 0.5 mg/L (0-3.3) Allergies: Coded Allergies: adhesive (Verified Allergy, Intermediate, Rash, 07/15/19) latex (Verified Allergy, Intermediate, Rash, 07/15/19) Medications: Current Medications Medications (Trade) Dose Ordered Sig/Jasmeet Route PRN Reason Start Time Stop Time Status Last Admin Dose Admin Sodium Chloride 1,000 ml @ 1,000 mls/hr 1X ONCE IV 12/31/19 16:00 12/31/19 16:59 DC 12/31/19 16:25 Fentanyl Citrate (Fentanyl 2ml Vial) 50 mcg 1X ONCE IVP 12/31/19 16:15 12/31/19 16:16 DC 12/31/19 16:25 Ondansetron HCl (Zofran) 4 mg 1X ONCE IVP 12/31/19 16:15 12/31/19 16:16 DC 12/31/19 16:25 Iohexol (Omnipaque 300 Mg/ml) 75 ml 1X ONCE IV 12/31/19 17:30 12/31/19 17:31 DC 12/31/19 17:30 Iohexol (Omnipaque 240 Mg/ml) 30 ml 1X ONCE PO 12/31/19 17:30 12/31/19 17:31 DC 12/31/19 17:30 Fentanyl Citrate (Fentanyl 2ml Vial) 50 mcg 1X ONCE IVP 12/31/19 18:00 12/31/19 18:01 DC 12/31/19 17:55 Metoclopramide HCl (Reglan Vial) 10 mg 1X ONCE IVP 12/31/19 18:00 12/31/19 18:01 DC 12/31/19 17:56 Ondansetron HCl (Zofran) 4 mg PRN Q8HRS PRN IV NAUSEA/VOMITING 12/31/19 20:00 01/01/20 19:59 01/01/20 05:37 Morphine Sulfate (Morphine Sulfate) 4 mg PRN Q2HR PRN IV PAIN 12/31/19 20:00 01/01/20 19:59 01/01/20 08:28 Heparin Sodium (Porcine) (Heparin Sodium) 5,000 unit Q8HRS SQ 12/31/19 22:00 01/01/20 05:36 Diazepam (Valium) 7.5 mg HS PO 12/31/19 22:15 12/31/19 22:52 Famotidine (Pepcid) 20 mg HS PO 12/31/19 22:15 12/31/19 22:51 Oxycodone/ Acetaminophen (Percocet 5/325) 1 tab PRN Q6HRS PRN PO PAIN 12/31/19 22:15 01/01/20 05:35 Imaging: Imaging: CT A/P 12/30 IMPRESSION: No acute abnormality is seen. PE: GEN: NAD, thin HEENT: Atraumatic, PERRL LUNGS: CTAB HEART: RRR ABD: quiet BS, soft, diffusely tender to very light touch EXTREMITY: No edema SKIN: pale NEURO/PSYCH: A & O 3 A/P: A/P: Chronic abd pain, h/o endometriosis, recent hysterectomy Normocytic anemia - iron profile not c/w iron deficiency Nausea, weight loss H/o PUD CRC screen, h/o polyps - 8 years ago in [place] Alternating bowel habits - chronic Fatty liver - noted on CT S/p hernia repair w/ mesh (in [place]) NSAID use -- Returned to see w/ Dr. Thibodeaux - recommends SBS today and a.m. Cortisol tomorrow. Okay to try ADAT after SBS per GI. Try PPI in place of H2 beryl. Check B12 for completeness. PATRICIA ARIZMENDI Jan 01, 2020 10:03
[2020-01-01] MEDS ORDERED: DOCUSATE SODIUM 100 MG CAPSULE. PO SCH (10:30)
[2020-01-01] MEDS: IV NORMAL SALINE 1000ML BAG 1,000 ML IV SCH (10:56)
[2020-01-01 11:00] VITALS: BP 96/62
[2020-01-01] MEDS ORDERED: DICYCLOMINE HCL 10 MG CAPSULE PO PRN (12:45)
[2020-01-01] MEDS ORDERED: LIDO:MAALOX 1:1 20 ML SINGLE DOSE. PO PRN (12:45)
--- NOTE | 2020-01-01 13:38 | RAD ---
PROCEDURE: KUB STUDY DATE: 01/01/2020 CLINICAL INDICATION / HISTORY: Reason: chronic abd pain / Spl. Instructions: Do KUB compliance administrator to check motility and oral iodinated contrast per RAD / History: . TECHNIQUE: Single AP image of the abdomen was obtained. COMPARISON: Abdomen and pelvis CT of 12/31/2019 FINDINGS: The lung bases are clear. A nonobstructive bowel gas pattern is present. There is residual contrast material in the bowel loops in the midabdomen and pelvis. Vicarious contrast excretion into the gallbladder. Elongated right hepatic lobe measuring 21 cm. Otherwise no organomegaly. No acute osseous abnormality. IMPRESSION: Residual enteric contrast in the bowel. No radiographic findings suspicious for bowel obstruction or perforation. Electronically signed by: Teri Polanco MD (01/01/2020 1:35 PM) [id number]
[2020-01-01] MEDS: PANTOPRAZOLE 40 MG TABLET.DR. PO SCH (14:10)
[2020-01-01 15:00] VITALS: BP 98/66
[2020-01-01] MEDS: HYDROcodone/APAP 5/325MG 1 TAB TABLET PO PRN (16:25)
[2020-01-01] MEDS: NICOTINE 14MG PATCH. TD SCH (17:00)
[2020-01-01 19:00] VITALS: BP 103/68
[2020-01-01] MEDS: METOCLOPRAMIDE HCL 10 MG/2 ML VIAL. IVP PRN (19:14)
[2020-01-01] MEDS: diazePAM 5 MG TABLET PO SCH (20:22)
[2020-01-01 23:00] VITALS: BP 96/67
[2020-01-02] MEDS: IV NORMAL SALINE 1000ML BAG 1,000 ML IV SCH ×2 (00:23→10:00)
[2020-01-02 03:00] VITALS: BP 109/78
[2020-01-02] MEDS: MORPHINE SULFATE 2 MG/ML VIAL. IV PRN ×5 (06:03→21:16)
[2020-01-02] MEDS: HEPARIN for SUB-Q USE 5,000 UNIT/ML VIAL. SQ SCH ×3 (06:10→21:15)
[2020-01-02] MEDS: PANTOPRAZOLE 40 MG TABLET.DR. PO SCH (06:11)
[2020-01-02 07:00] VITALS: BP 97/58
[2020-01-02] MEDS: NICOTINE 14MG PATCH. TD SCH ×2 (08:05→08:10)
[2020-01-02 08:37] LABS: BASO % 1 % (0-3); EOS # 0.1 x10^3/uL (0.0-0.7); EOS % 3 % (0-3); HEMOGLOBIN 12.4 g/dL (12.0-15.5); LYMPH # 1.7 x10^3/uL (1.0-4.8); LYMPH % 41 % (24-48); MEAN CORPUSCULAR HEMOGLOBIN 31 pg (25-35); MEAN CORPUSCULAR HGB CONC 34 g/dL (31-37); MEAN CORPUSCULAR VOLUME 92 fL (79-100); MONO # 0.2 x10^3/uL (0.0-1.1); MONO % 5 % (0-9); NEUT # 2.1 x10^3/uL (1.8-7.7); NEUT % 51 % (31-73); PLATELET COUNT 167 x10^3/uL (140-400); RED BLOOD COUNT 4.02 x10^6/uL (3.50-5.40); RED CELL DISTRIBUTION WIDTH 12.6 % (11.5-14.5); WHITE BLOOD COUNT 4.2 x10^3/uL (4.0-11.0)
[2020-01-02 08:38] LABS: CALCIUM 8.1 mg/dL (8.5-10.1); CREATININE 0.6 mg/dL (0.6-1.0); GFR 112.5; POTASSIUM 3.8 mmol/L (3.5-5.1)
[2020-01-02] MEDS: DOCUSATE SODIUM 100 MG CAPSULE. PO SCH ×2 (09:00→21:13)
[2020-01-02] MEDS: METOCLOPRAMIDE HCL 10 MG/2 ML VIAL. IVP PRN (09:59)
[2020-01-02 11:00] VITALS: BP 104/70
--- NOTE | 2020-01-02 11:05 | PDOC ---
G I PROGRESS NOTE Reason for Follow-up ABd pain Subjective Persistent pain Physical Exam Lungs clear CV S1 S2' ABD +BS, soft,mild diffuse tenderness Review of Relevant I have reviewed the following items quinn (where applicable) has been applied. Labs Laboratory Tests Test 12/31/19 15:48 12/31/19 15:55 12/31/19 16:07 01/01/20 04:05 Urine Collection Type Unknown Urine Color Yellow Urine Clarity Clear Urine pH 6.0 (<5.0-8.0) Urine Specific [place] 1.020 (1.000-1.030) Urine Protein Negative mg/dL (NEG-TRACE) Urine Glucose (UA) Negative mg/dL (NEG) Urine Ketones (Stick) Trace mg/dL (NEG) Urine Blood Negative (NEG) Urine Nitrite Negative (NEG) Urine Bilirubin Negative (NEG) Urine Urobilinogen Dipstick 0.2 mg/dL (0.2 mg/dL) Urine Leukocyte Esterase Negative (NEG) Urine RBC 0 /HPF (0-2) Urine WBC 0 /HPF (0-4) Urine Bacteria 0 /HPF (0-FEW) Urine Mucus Mod /LPF Bedside Urine HCG, Qualitative Hcg negative (Negative) White Blood Count 7.1 x10^3/uL (4.0-11.0) 5.2 x10^3/uL (4.0-11.0) Red Blood Count 4.50 x10^6/uL (3.50-5.40) 3.80 x10^6/uL (3.50-5.40) Hemoglobin 14.0 g/dL (12.0-15.5) 11.9 g/dL (12.0-15.5) Hematocrit 40.7 % (36.0-47.0) 34.5 % (36.0-47.0) Mean Corpuscular Volume 91 fL (79-100) 91 fL (79-100) Mean Corpuscular Hemoglobin 31 pg (25-35) 31 pg (25-35) Mean Corpuscular Hemoglobin Concent 34 g/dL (31-37) 35 g/dL (31-37) Red Cell Distribution Width 12.6 % (11.5-14.5) 12.6 % (11.5-14.5) Platelet Count 206 x10^3/uL (140-400) 155 x10^3/uL (140-400) Neutrophils (%) (Auto) 50 % (31-73) 31 % (31-73) Lymphocytes (%) (Auto) 41 % (24-48) 57 % (24-48) Monocytes (%) (Auto) 6 % (0-9) 7 % (0-9) Eosinophils (%) (Auto) 2 % (0-3) 4 % (0-3) Basophils (%) (Auto) 1 % (0-3) 1 % (0-3) Neutrophils # (Auto) 3.5 x10^3/uL (1.8-7.7) 1.6 x10^3/uL (1.8-7.7) Lymphocytes # (Auto) 2.9 x10^3/uL (1.0-4.8) 3.0 x10^3/uL (1.0-4.8) Monocytes # (Auto) 0.5 x10^3/uL (0.0-1.1) 0.4 x10^3/uL (0.0-1.1) Eosinophils # (Auto) 0.1 x10^3/uL (0.0-0.7) 0.2 x10^3/uL (0.0-0.7) Basophils # (Auto) 0.1 x10^3/uL (0.0-0.2) 0.0 x10^3/uL (0.0-0.2) Prothrombin Time 13.7 SEC (11.7-14.0) Prothromb Time International Ratio 1.1 (0.8-1.1) Activated Partial Thromboplast Time 26 SEC (24-38) Sodium Level 140 mmol/L (136-145) 142 mmol/L (136-145) Potassium Level 3.6 mmol/L (3.5-5.1) 3.4 mmol/L (3.5-5.1) Chloride Level 104 mmol/L (98-107) 107 mmol/L (98-107) Carbon Dioxide Level 26 mmol/L (21-32) 29 mmol/L (21-32) Anion Gap 10 (6-14) 6 (6-14) Blood Urea Nitrogen 10 mg/dL (7-20) 7 mg/dL (7-20) Creatinine 0.6 mg/dL (0.6-1.0) 0.5 mg/dL (0.6-1.0) Estimated GFR (Cockcroft-Gault) 112.5 138.8 BUN/Creatinine Ratio 17 (6-20) Glucose Level 100 mg/dL (70-99) 87 mg/dL (70-99) Calcium Level 9.1 mg/dL (8.5-10.1) 8.2 mg/dL (8.5-10.1) Total Bilirubin 0.4 mg/dL (0.2-1.0) Aspartate Amino Transf (AST/SGOT) 13 U/L (15-37) Alanine Aminotransferase (ALT/SGPT) 18 U/L (14-59) Alkaline Phosphatase 49 U/L (46-116) Total Protein 7.4 g/dL (6.4-8.2) Albumin 4.0 g/dL (3.4-5.0) Albumin/Globulin Ratio 1.2 (1.0-1.7) Lipase 205 U/L (73-393) Iron Level 105 ug/dL (50-170) Total Iron Binding Capacity 209 ug/dL (250-450) Iron Saturation 50 % (15-34) Ferritin 63 ng/mL (8-252) C-Reactive Protein, Quantitative < 0.5 mg/L (0-3.3) Vitamin B12 Level 856 pg/mL (247-911) Test 01/02/20 08:05 White Blood Count 4.2 x10^3/uL (4.0-11.0) Red Blood Count 4.02 x10^6/uL (3.50-5.40) Hemoglobin 12.4 g/dL (12.0-15.5) Hematocrit 37.0 % (36.0-47.0) Mean Corpuscular Volume 92 fL (79-100) Mean Corpuscular Hemoglobin 31 pg (25-35) Mean Corpuscular Hemoglobin Concent 34 g/dL (31-37) Red Cell Distribution Width 12.6 % (11.5-14.5) Platelet Count 167 x10^3/uL (140-400) Neutrophils (%) (Auto) 51 % (31-73) Lymphocytes (%) (Auto) 41 % (24-48) Monocytes (%) (Auto) 5 % (0-9) Eosinophils (%) (Auto) 3 % (0-3) Basophils (%) (Auto) 1 % (0-3) Neutrophils # (Auto) 2.1 x10^3/uL (1.8-7.7) Lymphocytes # (Auto) 1.7 x10^3/uL (1.0-4.8) Monocytes # (Auto) 0.2 x10^3/uL (0.0-1.1) Eosinophils # (Auto) 0.1 x10^3/uL (0.0-0.7) Basophils # (Auto) 0.0 x10^3/uL (0.0-0.2) Sodium Level 144 mmol/L (136-145) Potassium Level 3.8 mmol/L (3.5-5.1) Chloride Level 109 mmol/L (98-107) Carbon Dioxide Level 27 mmol/L (21-32) Anion Gap 8 (6-14) Blood Urea Nitrogen 4 mg/dL (7-20) Creatinine 0.6 mg/dL (0.6-1.0) Estimated GFR (Cockcroft-Gault) 112.5 Glucose Level 79 mg/dL (70-99) Calcium Level 8.1 mg/dL (8.5-10.1) Laboratory Tests Test 01/02/20 08:05 White Blood Count 4.2 x10^3/uL (4.0-11.0) Red Blood Count 4.02 x10^6/uL (3.50-5.40) Hemoglobin 12.4 g/dL (12.0-15.5) Hematocrit 37.0 % (36.0-47.0) Mean Corpuscular Volume 92 fL (79-100) Mean Corpuscular Hemoglobin 31 pg (25-35) Mean Corpuscular Hemoglobin Concent 34 g/dL (31-37) Red Cell Distribution Width 12.6 % (11.5-14.5) Platelet Count 167 x10^3/uL (140-400) Neutrophils (%) (Auto) 51 % (31-73) Lymphocytes (%) (Auto) 41 % (24-48) Monocytes (%) (Auto) 5 % (0-9) Eosinophils (%) (Auto) 3 % (0-3) Basophils (%) (Auto) 1 % (0-3) Neutrophils # (Auto) 2.1 x10^3/uL (1.8-7.7) Lymphocytes # (Auto) 1.7 x10^3/uL (1.0-4.8) Monocytes # (Auto) 0.2 x10^3/uL (0.0-1.1) Eosinophils # (Auto) 0.1 x10^3/uL (0.0-0.7) Basophils # (Auto) 0.0 x10^3/uL (0.0-0.2) Sodium Level 144 mmol/L (136-145) Potassium Level 3.8 mmol/L (3.5-5.1) Chloride Level 109 mmol/L (98-107) Carbon Dioxide Level 27 mmol/L (21-32) Anion Gap 8 (6-14) Blood Urea Nitrogen 4 mg/dL (7-20) Creatinine 0.6 mg/dL (0.6-1.0) Estimated GFR (Cockcroft-Gault) 112.5 Glucose Level 79 mg/dL (70-99) Calcium Level 8.1 mg/dL (8.5-10.1) Medications Current Medications Sodium Chloride 1,000 ml @ 1,000 mls/hr 1X ONCE IV Last administered on 12/31/19 16:25; Start 12/31/19 at 16:00; Stop 12/31/19 at 16:59; Status DC Fentanyl Citrate (Fentanyl 2ml Vial) 50 mcg 1X ONCE IVP Last administered on 12/31/19at 16:25; Start 12/31/19 at 16:15; Stop 12/31/19 at 16:16; Status DC Ondansetron HCl (Zofran) 4 mg 1X ONCE IVP Last administered on 12/31/19at 16:25; Start 12/31/19 at 16:15; Stop 12/31/19 at 16:16; Status DC Iohexol (Omnipaque 300 Mg/ml) 75 ml 1X ONCE IV Last administered on 12/31/19at 17:30; Start 12/31/19 at 17:30; Stop 12/31/19 at 17:31; Status DC Iohexol (Omnipaque 240 Mg/ml) 30 ml 1X ONCE PO Last administered on 12/31/19at 17:30; Start 12/31/19 at 17:30; Stop 12/31/19 at 17:31; Status DC Info (CONTRAST GIVEN -- Rx MONITORING) 1 each PRN DAILY PRN MC SEE COMMENTS; Start 12/31/19 at 17:30; Stop 01/02/20 at 17:29 Fentanyl Citrate (Fentanyl 2ml Vial) 50 mcg 1X ONCE IVP Last administered on 12/31/19at 17:55; Start 12/31/19 at 18:00; Stop 12/31/19 at 18:01; Status DC Metoclopramide HCl (Reglan Vial) 10 mg 1X ONCE IVP Last administered on 12/31/19at 17:56; Start 12/31/19 at 18:00; Stop 12/31/19 at 18:01; Status DC Ondansetron HCl (Zofran) 4 mg PRN Q8HRS PRN IV NAUSEA/VOMITING Last administered on 01/01/20at 05:37; Start 12/31/19 at 20:00; Stop 01/01/20 at 10:09; Status DC Morphine Sulfate (Morphine Sulfate) 4 mg PRN Q2HR PRN IV PAIN Last administered on 01/01/20at 14:15; Start 12/31/19 at 20:00; Stop 01/01/20 at 19:59; Status DC Morphine Sulfate (Morphine Sulfate) 2 mg PRN Q1HR PRN IV PAIN Last administered on 01/02/20at 09:59; Start 12/31/19 at 20:15 Acetaminophen/ Hydrocodone Bitart (Lortab 5/325) 1 tab PRN Q4HRS PRN PO MILD PAIN 1-3; Start 12/31/19 at 20:15; Stop 01/01/20 at 10:09; Status DC Acetaminophen/ Hydrocodone Bitart (Lortab 5/325) 2 tab PRN Q4HRS PRN PO MODERATE PAIN, SEVERE PAIN; Start 12/31/19 at 20:15; Stop 01/01/20 at 10:09; S tatus DC Docusate Sodium (Colace) 100 mg BID PO Last administered on 01/01/20at 20:21; Start 12/31/19 at 21:00 Heparin Sodium (Porcine) (Heparin Sodium) 5,000 unit Q8HRS SQ Last administered on 01/02/20at 06:10; Start 12/31/19 at 22:00 Zolpidem Tartrate (Ambien) 5 mg PRN QHS PRN PO INSOMNIA; Start 12/31/19 at 20:30 Ibuprofen (Motrin) 600 mg PRN Q6HRS PRN PO INFLAMMATION; Start 12/31/19 at 20:30 Diazepam (Valium) 7.5 mg HS PO Last administered on 01/01/20at 20:22; Start 12/31/19 at 22:15 Famotidine (Pepcid) 20 mg HS PO Last administered on 12/31/19at 22:51; Start 12/31/19 at 22:15; Stop 01/01/20 at 12:36; Status DC Multivitamins (Thera M Plus) 1 tab DAILY PO ; Start 01/01/20 at 09:00 Oxycodone/ Acetaminophen (Percocet 5/325) 1 tab PRN Q6HRS PRN PO PAIN Last administered on 01/01/20at 20:22; Start 12/31/19 at 22:15 Pharmacy Consult (C.diff Med Screen By Rx) 1 each 1X ONCE MC ; Start 01/01/20 at 09:00; Stop 01/01/20 at 09:01; Status Cancel Ondansetron HCl (Zofran) 4 mg PRN Q6HRS PRN IVP NAUSEA/VOMITING Last administered on 01/01/20at 17:03; Start 01/01/20 at 10:00 Acetaminophen/ Hydrocodone Bitart (Lortab 5/325) 1 tab PRN Q4HRS PRN PO MILD PAIN 1-3; Start 01/01/20 at 10:00 Acetaminophen/ Hydrocodone Bitart (Lortab 5/325) 2 tab PRN Q4HRS PRN PO MODERATE PAIN, SEVERE PAIN Last administered on 01/01/20at 16:25; Start 01/01/20 at 10:00 Docusate Sodium (Colace) 100 mg BID PO ; Start 01/01/20 at 10:30; Status Cancel Sodium Chloride 1,000 ml @ 75 mls/hr [id number] IV Last administered on 01/02/20at 10:00; Start 01/01/20 at 10:45 Pantoprazole Sodium (Protonix) 40 mg DAILYAC PO Last administered on 01/01/20at 14:10; Start 01/01/20 at 13:00 Dicyclomine HCl (Bentyl) 10 mg PRN QID PRN PO ABDOMINAL PAIN Last administered on 01/01/20at 20:21; Start 01/01/20 at 12:45 Multi-Ingredient Mouthwash/Gargle (Gi Cocktail) 20 ml PRN QID PRN PO CHEST PAIN; Start 01/01/20 at 12:45 Nicotine (Nicoderm Cq 14mg) 1 patch DAILY TD Last administered on 01/02/20at 08:10; Start 01/01/20 at 17:00 Metoclopramide HCl (Reglan Vial) 10 mg PRN Q6HRS PRN IVP NAUSEA/VOMITING Last a dministered on 01/02/20at 09:59; Start 01/01/20 at 18:45 Active Scripts Active Zofran (Ondansetron Hcl) 4 Mg Tablet 4 Mg PO PRN TID PRN nausea/vomiting Dicyclomine Hcl 20 Mg Tablet 1 Tab PO TID Pepcid (Famotidine) 20 Mg Tablet 20 Mg PO HS 14 Days Reported Tramadol Hcl 50 Mg Tablet 50 Mg PO BID PRN Valium (Diazepam) 5 Mg Tablet 7.5 Mg PO HS Multivitamins (Multivitamin) 1 Each Capsule 1 Cap PO DAILY 30 Days Vitals/I & O Vital Sign - Last 24 Hours 01/01/20 01/01/20 01/01/20 01/01/20 11:55 12:25 14:45 15:00 Temp 98.0 98.0 Pulse 90 Resp 18 B/P (MAP) 98/66 (77) Pulse Ox 98 O2 Delivery Room Air Room Air Room Air Room Air 01/01/20 01/01/20 01/01/20 01/01/20 16:25 17:25 19:00 20:00 Temp 97.8 97.8 Pulse 91 Resp 18 B/P (MAP) 103/68 (80) Pulse Ox 94 O2 Delivery Room Air Room Air Room Air Room Air 01/01/20 01/01/20 01/01/20 01/02/20 20:22 21:27 23:00 03:00 Temp 97.5 97.9 97.5 97.9 Pulse 78 82 Resp 16 14 18 18 B/P (MAP) 96/67 (77) 109/78 (88) Pulse Ox 96 94 O2 Delivery Room Air Room Air Room Air Room Air 01/02/20 01/02/20 01/02/20 01/02/20 06:03 06:33 07:00 08:00 Temp 98.5 98.5 Pulse 94 Resp 14 14 18 B/P (MAP) 97/58 (71) Pulse Ox 98 O2 Delivery Room Air Room Air Room Air Room Air 01/02/20 01/02/20 01/02/20 01/02/20 08:04 08:35 09:59 10:30 Resp 19 19 19 19 Pulse Ox 98 98 98 98 O2 Delivery Room Air Room Air Room Air Room Air Intake and Output 01/01/20 01/01/20 01/02/20 15:00 23:00 07:00 Intake Total 360 ml 220 ml 1500 ml Balance 360 ml 220 ml 1500 ml Problem List Problems Medical Problems: (1) Unexplained weight loss Status: Acute Assessment Diffuse abdominal pain- with prior surgeries, adhesions lead differential. Crohns, Meckels, internal hernia, and/or malignancy possible as well. Plan await cortisol level sb series after bowel prep Justicifation of Admission Dx: Justifications for Admission: Justification of Admission Dx: Yes NENITA FRIAS MD Jan 02, 2020 11:04
--- NOTE | 2020-01-02 11:08 | RAD ---
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 TECHNIQUE: Single supine view of abdomen is provided. FINDINGS/ IMPRESSION: There is residual contrast within the right colon which may limit evaluation of the small bowel. Recommend bowel prep are clear contrast from the bowel prior to initiation of the examination. No dilated small large bowel loops are identified. Suture material identified within the lower pelvis. Electronically signed by: Josephine Schmitz MD (01/02/2020 11:05 AM) [facility]
[2020-01-02] MEDS ORDERED: POLYETHYLENE GLYCOL 3350 BTL 238 GM POWDER PO ONE (11:15)
--- NOTE | 2020-01-02 12:44 | PDOC ---
[facility] PROGRESS NOTE Date of Service DOS: DATE: 01/02/20 TIME: 12:42 Chief Complaint Chief Complaint Abdominal pain History of Present Illness History of Present Illness Patient abdominal pain is slightly improved with narcotic medication. She has been seen by GI, who recommends small bowel series. However she will need to pass the contrast that is still in her system prior to small bowel series. She still has not had a bowel movement. Discussed with patient, promote p.o. intake. Vitals/I&O Vitals/I&O: Vital Signs Date Time Temp Pulse Resp B/P (MAP) Pulse Ox O2 Delivery O2 Flow Rate FiO2 01/02/20 11:00 97.9 93 18 104/70 (81) 98 Room Air 97.9 I & O 01/01/20 01/01/20 01/02/20 15:00 23:00 07:00 Intake Total 360 ml 220 ml 1500 ml Balance 360 ml 220 ml 1500 ml Physical Exam General: Alert, Oriented X3, Cooperative, No acute distress Abdomen: Normal bowel sounds, Soft, Other (Bilateral lower quadrant abdominal tenderness) Extremities: No clubbing, No cyanosis, No edema Skin: No rashes, No breakdown Labs Labs: Laboratory Tests Test 01/02/20 08:05 White Blood Count 4.2 x10^3/uL (4.0-11.0) Red Blood Count 4.02 x10^6/uL (3.50-5.40) Hemoglobin 12.4 g/dL (12.0-15.5) Hematocrit 37.0 % (36.0-47.0) Mean Corpuscular Volume 92 fL (79-100) Mean Corpuscular Hemoglobin 31 pg (25-35) Mean Corpuscular Hemoglobin Concent 34 g/dL (31-37) Red Cell Distribution Width 12.6 % (11.5-14.5) Platelet Count 167 x10^3/uL (140-400) Neutrophils (%) (Auto) 51 % (31-73) Lymphocytes (%) (Auto) 41 % (24-48) Monocytes (%) (Auto) 5 % (0-9) Eosinophils (%) (Auto) 3 % (0-3) Basophils (%) (Auto) 1 % (0-3) Neutrophils # (Auto) 2.1 x10^3/uL (1.8-7.7) Lymphocytes # (Auto) 1.7 x10^3/uL (1.0-4.8) Monocytes # (Auto) 0.2 x10^3/uL (0.0-1.1) Eosinophils # (Auto) 0.1 x10^3/uL (0.0-0.7) Basophils # (Auto) 0.0 x10^3/uL (0.0-0.2) Sodium Level 144 mmol/L (136-145) Potassium Level 3.8 mmol/L (3.5-5.1) Chloride Level 109 mmol/L (98-107) Carbon Dioxide Level 27 mmol/L (21-32) Anion Gap 8 (6-14) Blood Urea Nitrogen 4 mg/dL (7-20) Creatinine 0.6 mg/dL (0.6-1.0) Estimated GFR (Cockcroft-Gault) 112.5 Glucose Level 79 mg/dL (70-99) Calcium Level 8.1 mg/dL (8.5-10.1) Review of Systems Review of Systems: Abdominal pain. Denies fever, denies shortness of breath, denies vomiting. Assessment and Plan Assessmemt and Plan Problems Medical Problems: (1) Unexplained weight loss Status: Acute Comment Review of Relevant I have reviewed the following items quinn (where applicable) has been applied. Medications: Current Medications Medications (Trade) Dose Ordered Sig/Jasmeet Route PRN Reason Start Time Stop Time Status Last Admin Dose Admin Pantoprazole Sodium (Protonix) 40 mg DAILYAC PO 01/01/20 13:00 01/01/20 14:10 Dicyclomine HCl (Bentyl) 10 mg PRN QID PRN PO ABDOMINAL PAIN 01/01/20 12:45 01/01/20 20:21 Nicotine (Nicoderm Cq 14mg) 1 patch DAILY TD 01/01/20 17:00 01/02/20 08:10 Metoclopramide HCl (Reglan Vial) 10 mg PRN Q6HRS PRN IVP NAUSEA/VOMITING 01/01/20 18:45 01/02/20 09:59 Polyethylene Glycol (miraLAX Powder BULK BOTTLE) 238 gm 1X ONCE PO 01/02/20 11:15 01/02/20 11:16 DC 01/02/20 11:46 Justifications for Admission Other Justification VIET CHONG MD Jan 02, 2020 12:44
[2020-01-02] MEDS: MULTIVITAMIN with MINERAL TABLET. PO SCH (13:48)
[2020-01-02] MEDS: oxyCODONE/APAP 5/325 1 TAB TABLET PO PRN ×2 (13:48→21:13)
[2020-01-02 15:00] VITALS: BP 100/70
[2020-01-02 17:14] LABS: FECAL OB PT NEGATIVE (NEG)
--- NOTE | 2020-01-02 18:09 | NUR ---
Patient's small bowel series was cancelled today due to presence of contrast. Dr. Thibodeaux updated, order for miralax bowel prep noted. Procedure rescheduled tomorrow.
[2020-01-02 19:00] VITALS: BP 100/70
[2020-01-02] MEDS: diazePAM 5 MG TABLET PO SCH (21:13)
[2020-01-02 23:00] VITALS: BP 99/70
[2020-01-03] VITALS (7 sets, daily range): BP systolic 101–112; BP diastolic 64–78
[2020-01-03] MEDS: MORPHINE SULFATE 2 MG/ML VIAL. IV PRN ×4 (00:25→13:04)
[2020-01-03] MEDS: IV NORMAL SALINE 1000ML BAG 1,000 ML IV SCH ×3 (00:25→23:44)
[2020-01-03 05:09] LABS: CALCIUM 7.8 mg/dL (8.5-10.1); CREATININE 0.6 mg/dL (0.6-1.0); GFR 112.5; POTASSIUM 3.4 mmol/L (3.5-5.1)
[2020-01-03] MEDS: oxyCODONE/APAP 5/325 1 TAB TABLET PO PRN ×2 (05:31→14:22)
[2020-01-03] MEDS: HEPARIN for SUB-Q USE 5,000 UNIT/ML VIAL. SQ SCH ×3 (05:33→21:27)
[2020-01-03] MEDS: PANTOPRAZOLE 40 MG TABLET.DR. PO SCH (07:30)
[2020-01-03] MEDS: HYDROcodone/APAP 5/325MG 1 TAB TABLET PO PRN ×3 (08:43→23:42)
[2020-01-03] MEDS: NICOTINE 14MG PATCH. TD SCH (08:44)
[2020-01-03] MEDS: DOCUSATE SODIUM 100 MG CAPSULE. PO SCH ×2 (09:00→20:36)
[2020-01-03] MEDS: MULTIVITAMIN with MINERAL TABLET. PO SCH (09:00)
[2020-01-03] MEDS ORDERED: BARIUM SULFATE 60% 355 ML SUSP PO ONE ×2 (09:15→13:30)
--- NOTE | 2020-01-03 13:13 | PDOC ---
[facility] PROGRESS NOTE Date of Service DOS: DATE: 01/03/20 TIME: 13:11 Chief Complaint Chief Complaint Abdominal pain History of Present Illness History of Present Illness Patient states she has had a bowel movement. She will have a small bowel series today. Still some abdominal pain, patient is very tearful. Vitals/I&O Vitals/I&O: Vital Signs Date Time Temp Pulse Resp B/P (MAP) Pulse Ox O2 Delivery O2 Flow Rate FiO2 01/03/20 13:04 100 Room Air 01/03/20 12:36 107/73 (84) 01/03/20 11:00 97.9 92 18 97.9 I & O 01/02/20 01/02/20 01/03/20 15:00 23:00 07:00 Intake Total 240 ml Balance 240 ml Physical Exam General: Alert, Oriented X3, Cooperative, mild distress Abdomen: Normal bowel sounds, Soft, Other (Bilateral lower quadrant abdominal tenderness) Extremities: No clubbing, No cyanosis, No edema Skin: No rashes, No breakdown Labs Labs: Laboratory Tests Test 01/02/20 16:20 01/03/20 04:35 Stool Occult Blood Negative (NEG) Sodium Level 144 mmol/L (136-145) Potassium Level 3.4 mmol/L (3.5-5.1) Chloride Level 110 mmol/L (98-107) Carbon Dioxide Level 29 mmol/L (21-32) Anion Gap 5 (6-14) Blood Urea Nitrogen 4 mg/dL (7-20) Creatinine 0.6 mg/dL (0.6-1.0) Estimated GFR (Cockcroft-Gault) 112.5 Glucose Level 86 mg/dL (70-99) Calcium Level 7.8 mg/dL (8.5-10.1) Assessment and Plan Assessmemt and Plan Problems Medical Problems: (1) Unexplained weight loss Status: Acute Comment Review of Relevant I have reviewed the following items quinn (where applicable) has been applied. Medications: Current Medications Medications (Trade) Dose Ordered Sig/Jasmeet Route PRN Reason Start Time Stop Time Status Last Admin Dose Admin Barium Sulfate (Liquid E-Z Paque) 710 ml 1X ONCE PO 01/03/20 09:15 01/03/20 09:16 DC 01/03/20 09:15 Justifications for Admission Other Justification VIET CHONG MD Jan 03, 2020 13:12
--- NOTE | 2020-01-03 13:38 | RAD ---
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 PAIN, WT. LOSS / Spl. Instructions: / History: . Comparison: CT December 31, 2019. Technique: Preliminary [facility] home health film of the abdomen was obtained. Then following ingestion of oral barium, serial images of the abdomen were obtained to assess progress of contrast throughout the small bowel. Findings: The [facility] home health image demonstrates contrast residual noted within the colon has progressed. Several nondilated air-filled loops of small bowel within the left mid abdomen. Air stool scattered throughout the imaged colon. Postop changes overlying the pelvis. There are no distended small bowel loops. No strictures are seen. The small bowel fold pattern is unremarkable. Transit time to the colon was approximately 3 hours. IMPRESSION: 1. Mildly delayed transit time to the colon approximately 3 hours. 2. No evidence of small bowel obstruction or stricture. Electronically signed by: Juan Rajput DO (01/03/2020 1:35 PM) [facility]
--- NOTE | 2020-01-03 14:26 | PDOC ---
G I PROGRESS NOTE Reason for Follow-up abd pain s/p hysterectomy Subjective pain persists Physical Exam Lungs clear CV S1 S2 ABD +BS, soft, diffuse tenderness Review of Relevant I have reviewed the following items quinn (where applicable) has been applied. Labs Laboratory Tests Test 01/02/20 08:05 01/02/20 16:20 01/03/20 04:35 White Blood Count 4.2 x10^3/uL (4.0-11.0) Red Blood Count 4.02 x10^6/uL (3.50-5.40) Hemoglobin 12.4 g/dL (12.0-15.5) Hematocrit 37.0 % (36.0-47.0) Mean Corpuscular Volume 92 fL (79-100) Mean Corpuscular Hemoglobin 31 pg (25-35) Mean Corpuscular Hemoglobin Concent 34 g/dL (31-37) Red Cell Distribution Width 12.6 % (11.5-14.5) Platelet Count 167 x10^3/uL (140-400) Neutrophils (%) (Auto) 51 % (31-73) Lymphocytes (%) (Auto) 41 % (24-48) Monocytes (%) (Auto) 5 % (0-9) Eosinophils (%) (Auto) 3 % (0-3) Basophils (%) (Auto) 1 % (0-3) Neutrophils # (Auto) 2.1 x10^3/uL (1.8-7.7) Lymphocytes # (Auto) 1.7 x10^3/uL (1.0-4.8) Monocytes # (Auto) 0.2 x10^3/uL (0.0-1.1) Eosinophils # (Auto) 0.1 x10^3/uL (0.0-0.7) Basophils # (Auto) 0.0 x10^3/uL (0.0-0.2) Sodium Level 144 mmol/L (136-145) 144 mmol/L (136-145) Potassium Level 3.8 mmol/L (3.5-5.1) 3.4 mmol/L (3.5-5.1) Chloride Level 109 mmol/L (98-107) 110 mmol/L (98-107) Carbon Dioxide Level 27 mmol/L (21-32) 29 mmol/L (21-32) Anion Gap 8 (6-14) 5 (6-14) Blood Urea Nitrogen 4 mg/dL (7-20) 4 mg/dL (7-20) Creatinine 0.6 mg/dL (0.6-1.0) 0.6 mg/dL (0.6-1.0) Estimated GFR (Cockcroft-Gault) 112.5 112.5 Glucose Level 79 mg/dL (70-99) 86 mg/dL (70-99) Calcium Level 8.1 mg/dL (8.5-10.1) 7.8 mg/dL (8.5-10.1) Stool Occult Blood Negative (NEG) Laboratory Tests Test 01/02/20 16:20 01/03/20 04:35 Stool Occult Blood Negative (NEG) Sodium Level 144 mmol/L (136-145) Potassium Level 3.4 mmol/L (3.5-5.1) Chloride Level 110 mmol/L (98-107) Carbon Dioxide Level 29 mmol/L (21-32) Anion Gap 5 (6-14) Blood Urea Nitrogen 4 mg/dL (7-20) Creatinine 0.6 mg/dL (0.6-1.0) Estimated GFR (Cockcroft-Gault) 112.5 Glucose Level 86 mg/dL (70-99) Calcium Level 7.8 mg/dL (8.5-10.1) Medications Current Medications Sodium Chloride 1,000 ml @ 1,000 mls/hr 1X ONCE IV Last administered on 12/31/19at 16:25; Start 12/31/19 at 16:00; Stop 12/31/19 at 16:59; Status DC Fentanyl Citrate (Fentanyl 2ml Vial) 50 mcg 1X ONCE IVP Last administered on 12/31/19at 16:25; Start 12/31/19 at 16:15; Stop 12/31/19 at 16:16; Status DC Ondansetron HCl (Zofran) 4 mg 1X ONCE IVP Last administered on 12/31/19at 16:25; Start 12/31/19 at 16:15; Stop 12/31/19 at 16:16; Status DC Iohexol (Omnipaque 300 Mg/ml) 75 ml 1X ONCE IV Last administered on 12/31/19at 17:30; Start 12/31/19 at 17:30; Stop 12/31/19 at 17:31; Status DC Iohexol (Omnipaque 240 Mg/ml) 30 ml 1X ONCE PO Last administered on 12/31/19at 17:30; Start 12/31/19 at 17:30; Stop 12/31/19 at 17:31; Status DC Info (CONTRAST GIVEN -- Rx MONITORING) 1 each PRN DAILY PRN MC SEE COMMENTS; Start 12/31/19 at 17:30; Stop 01/02/20 at 17:29; Status DC Fentanyl Citrate (Fentanyl 2ml Vial) 50 mcg 1X ONCE IVP Last administered on 12/31/19at 17:55; Start 12/31/19 at 18:00; Stop 12/31/19 at 18:01; Status DC Metoclopramide HCl (Reglan Vial) 10 mg 1X ONCE IVP Last administered on 12/31/19at 17:56; Start 12/31/19 at 18:00; Stop 12/31/19 at 18:01; Status DC Ondansetron HCl (Zofran) 4 mg PRN Q8HRS PRN IV NAUSEA/VOMITING Last administered on 01/01/20at 05:37; Start 12/31/19 at 20:00; Stop 01/01/20 at 10:09; Status DC Morphine Sulfate (Morphine Sulfate) 4 mg PRN Q2HR PRN IV PAIN Last administered on 01/01/20at 14:15; Start 12/31/19 at 20:00; Stop 01/01/20 at 19:59; Status DC Morphine Sulfate (Morphine Sulfate) 2 mg PRN Q1HR PRN IV PAIN Last administered on 01/03/20at 13:04; Start 12/31/19 at 20:15 Acetaminophen/ Hydrocodone Bitart (Lortab 5/325) 1 tab PRN Q4HRS PRN PO MILD PAIN 1-3; Start 12/31/19 at 20:15; Stop 01/01/20 at 10:09; Status DC Acetaminophen/ Hydrocodone Bitart (Lortab 5/325) 2 tab PRN Q4HRS PRN PO MODERATE PAIN, SEVERE PAIN; Start 12/31/19 at 20:15; Stop 01/01/20 at 10:09; Status DC Docusate Sodium (Colace) 100 mg BID PO Last administered on 01/02/20at 21:13; Start 12/31/19 at 21:00 Heparin Sodium (Porcine) (Heparin Sodium) 5,000 unit Q8HRS SQ Last administered on 01/03/20at 14:03; Start 12/31/19 at 22:00 Zolpidem Tartrate (Ambien) 5 mg PRN QHS PRN PO INSOMNIA; Start 12/31/19 at 20:30 Ibuprofen (Motrin) 600 mg PRN Q6HRS PRN PO INFLAMMATION; Start 12/31/19 at 20:30 Diazepam (Valium) 7.5 mg HS PO Last administered on 01/02/20at 21:13; Start 12/31/19 at 22:15 Famotidine (Pepcid) 20 mg HS PO Last administered on 12/31/19at 22:51; Start 12/31/19 at 22:15; Stop 01/01/20 at 12:36; Status DC Multivitamins (Thera M Plus) 1 tab DAILY PO Last administered on 01/02/20at 13:48; Start 01/01/20 at 09:00 Oxycodone/ Acetaminophen (Percocet 5/325) 1 tab PRN Q6HRS PRN PO moderate- severe pain, 2nd forbes Last administered on 01/03/20at 14:22; Start 12/31/19 at 22:15 Pharmacy Consult (C.diff Med Screen By Rx) 1 each 1X ONCE MC ; Start 01/01/20 at 09:00; Stop 01/01/20 at 09:01; Status Cancel Ondansetron HCl (Zofran) 4 mg PRN Q6HRS PRN IVP NAUSEA/VOMITING, 1st choice Last administered on 01/01/20at 17:03; Start 01/01/20 at 10:00 Acetaminophen/ Hydrocodone Bitart (Lortab 5/325) 1 tab PRN Q4HRS PRN PO MILD PAIN 1-3; Start 01/01/20 at 10:00 Acetaminophen/ Hydrocodone Bitart (Lortab 5/325) 2 tab PRN Q4HRS PRN PO MODERATE PAIN, SEVERE PAIN Last administered on 01/03/20at 08:43; Start 01/01/20 at 10:00 Docusate Sodium (Colace) 100 mg BID PO ; Start 01/01/20 at 10:30; Status Cancel Sodium Chloride 1,000 ml @ 75 mls/hr [id number] IV Last administered on 01/03/20at 14:04; Start 01/01/20 at 10:45 Pantoprazole Sodium (Protonix) 40 mg DAILYAC PO Last administered on 01/01/20at 14:10; Start 01/01/20 at 13:00 Dicyclomine HCl (Bentyl) 10 mg PRN QID PRN PO ABDOMINAL PAIN Last administered on 01/01/20at 20:21; Start 01/01/20 at 12:45 Multi-Ingredient Mouthwash/Gargle (Gi Cocktail) 20 ml PRN QID PRN PO CHEST PAIN; Start 01/01/20 at 12:45 Nicotine (Nicoderm Cq 14mg) 1 patch DAILY TD Last administered on 01/03/20 08:44; Start 01/01/20 at 17:00 Metoclopramide HCl (Reglan Vial) 10 mg PRN Q6HRS PRN IVP NAUSEA/VOMITING, 2nd choice Last administered on 01/02/20at 09:59; Start 01/01/20 at 18:45 Polyethylene Glycol (miraLAX Powder BULK BOTTLE) 238 gm 1X ONCE PO Last administered on 01/02/20at 11:46; Start 01/02/20 at 11:15; Stop 01/02/20 at 11:16; Status DC Barium Sulfate (Liquid E-Z Paque) 710 ml 1X ONCE PO Last administered on at 09:15; Start 01/03/20 at 09:15; Stop 01/03/20 at 09:16; Status DC Barium Sulfate (Liquid E-Z Paque) 710 ml 1X ONCE PO Last administered on 01/03/20at 13:26; Start 01/03/20 at 13:30; Stop 01/03/20 at 13:31; Status DC Active Scripts Active Zofran (Ondansetron Hcl) 4 Mg Tablet 4 Mg PO PRN TID PRN nausea/vomiting Dicyclomine Hcl 20 Mg Tablet 1 Tab PO TID Pepcid (Famotidine) 20 Mg Tablet 20 Mg PO HS 14 Days Reported Tramadol Hcl 50 Mg Tablet 50 Mg PO BID PRN Valium (Diazepam) 5 Mg Tablet 7.5 Mg PO HS Multivitamins (Multivitamin) 1 Each Capsule 1 Cap PO DAILY 30 Days Vitals/I & O Vital Sign - Last 24 Hours 01/02/20 01/02/20 01/02/20 01/02/20 14:50 15:00 17:44 18:15 Temp 98.5 98.5 Pulse 97 Resp 19 20 19 18 B/P (MAP) 100/70 (80) Pulse Ox 97 97 97 97 O2 Delivery Room Air Room Air Room Air Room Air 01/02/20 01/02/20 01/02/20 01/02/20 19:00 20:00 21:13 21:16 Temp 98.5 98.5 Pulse 92 Resp 18 16 16 B/P (MAP) 100/70 (80) Pulse Ox 96 96 96 O2 Delivery Room Air Room Air Room Air Room Air 01/02/20 01/02/20 01/02/20 01/03/20 21:46 22:13 23:00 00:25 Temp 98.3 98.3 Pulse 81 Resp 16 16 18 16 B/P (MAP) 99/70 (80) Pulse Ox 96 96 96 96 O2 Delivery Room Air Room Air Room Air Room Air 01/03/20 01/03/20 01/03/20 01/03/20 00:55 03:00 05:31 05:31 Temp 98.3 98.3 Pulse 81 Resp 16 18 16 16 B/P (MAP) 101/64 (76) Pulse Ox 96 95 95 95 O2 Delivery Room Air Room Air Room Air Room Air 01/03/20 01/03/20 01/03/20 01/03/20 06:01 06:31 07:00 08:00 Temp 98.0 98.0 Pulse 82 Resp 16 18 B/P (MAP) 101/67 (78) Pulse Ox 95 95 97 O2 Delivery Room Air Room Air Room Air Room Air 01/03/20 01/03/20 01/03/20 01/03/20 08:43 09:45 11:00 11:43 Temp 97.9 97.9 Pulse 92 Resp 18 B/P (MAP) 107/71 (83) Pulse Ox 97 100 99 99 O2 Delivery Room Air Room Air Room Air Room Air 01/03/20 01/03/20 01/03/20 01/03/20 12:36 13:04 13:50 14:22 B/P (MAP) 107/73 (84) Pulse Ox 100 100 100 100 O2 Delivery Nasal Cannula Room Air Room Air Room Air Intake and Output 01/02/20 01/02/20 01/03/20 15:00 23:00 07:00 Intake Total 240 ml Balance 240 ml Problem List Problems Medical Problems: (1) Unexplained weight loss Status: Acute Assessment Diffuse abd pain-s/p hysterceomty and prior mesh from abdominal surgery in [place] two years ago, etiology to be determined Plan await cortisol level- not run due to weekend-pending surgery and quartz orientator evaluations Justicifation of Admission Dx: Justifications for Admission: Justification of Admission Dx: Yes NENITA FRIAS MD Jan 03, 2020 14:26
[2020-01-03] MEDS: SIMETHICONE 80 MG TAB.CHEW PO PRN (16:16)
[2020-01-03] MEDS: diazePAM 5 MG TABLET PO SCH (20:38)
[2020-01-04 03:00] VITALS: BP 101/67
[2020-01-04 04:31] LABS: CALCIUM 8.2 mg/dL (8.5-10.1); CREATININE 0.7 mg/dL (0.6-1.0); GFR 94.2; POTASSIUM 3.6 mmol/L (3.5-5.1)
[2020-01-04] MEDS: PANTOPRAZOLE 40 MG TABLET.DR. PO SCH (05:44)
[2020-01-04] MEDS: HEPARIN for SUB-Q USE 5,000 UNIT/ML VIAL. SQ SCH ×3 (05:44→21:49)
[2020-01-04 07:00] VITALS: BP 118/74
[2020-01-04] MEDS: MULTIVITAMIN with MINERAL TABLET. PO SCH (07:28)
[2020-01-04] MEDS: NICOTINE 14MG PATCH. TD SCH (08:19)
[2020-01-04] MEDS: DOCUSATE SODIUM 100 MG CAPSULE. PO SCH ×2 (08:19→21:43)
[2020-01-04] MEDS: HYDROcodone/APAP 5/325MG 1 TAB TABLET PO PRN ×3 (08:20→21:44)
[2020-01-04] MEDS: MORPHINE SULFATE 2 MG/ML VIAL. IV PRN ×4 (08:24→19:19)
--- NOTE | 2020-01-04 08:45 | PDOC2 ---
CONSULT Date of Consult Date of Consult DATE: 01/04/20 TIME: 08:40 Reason for Consult Reason for Consult: Chronic abdominal pain Referring Physician Referring Physician: Daisy Identification/Chief Complaint Chief Complaint Abdominal pain diffuse Source Source: Patient History of Present Illness Reason for Visit: 39-year-old female who states she has been having abdominal pain ever since she underwent a laparoscopic ventral hernia repair became much worse after her laparoscopic hysterectomy which she had for endometriosis. Her ventral hernia repair was done 2018 for what sounds like a periumbilical hernia with diastases this was done in [place] and mesh was placed. She subsequently underwent a laparoscopic hysterectomy for endometriosis approximately a year ago she states her ovaries removed at that time. For 2 years now she has had diffuse abdominal pain generally worse after eating she states it involves the whole abdominal area worse on the right lower quadrant occasionally nausea with the pain. She describes the pain as generally sharp in nature constant. Past Medical History Cardiovascular: No pertinent hx Pulmonary: No pertinent hx GI: Other Heme/Onc: No pertinent hx Psych: No pertinent hx Past Surgical History Past Surgical History: Hernia Repair, Hysterectomy Social History <1 pack per day ALCOHOL: none Drugs: None Current Problem List Problem List Problems Medical Problems: (1) Unexplained weight loss Status: Acute Current Medications Current Medications Current Medications Sodium Chloride 1,000 ml @ 1,000 mls/hr 1X ONCE IV Last administered on 12/31/19at 16:25; Start 12/31/19 at 16:00; Stop 12/31/19 at 16:59; Status DC Fentanyl Citrate (Fentanyl 2ml Vial) 50 mcg 1X ONCE IVP Last administered on 12/31/19at 16:25; Start 12/31/19 at 16:15; Stop 12/31/19 at 16:16; Status DC Ondansetron HCl (Zofran) 4 mg 1X ONCE IVP Last administered on 12/31/19at 16:25; Start 12/31/19 at 16:15; Stop 12/31/19 at 16:16; Status DC Iohexol (Omnipaque 300 Mg/ml) 75 ml 1X ONCE IV Last administered on 12/31/19at 17:30; Start 12/31/19 at 17:30; Stop 12/31/19 at 17:31; Status DC Iohexol (Omnipaque 240 Mg/ml) 30 ml 1X ONCE PO Last administered on 12/31/19at 17:30; Start 12/31/19 at 17:30; Stop 12/31/19 at 17:31; Status DC Info (CONTRAST GIVEN -- Rx MONITORING) 1 each PRN DAILY PRN MC SEE COMMENTS; Start 12/31/19 at 17:30; Stop 01/02/20 at 17:29; Status DC Fentanyl Citrate (Fentanyl 2ml Vial) 50 mcg 1X ONCE IVP Last administered on 12/31/19at 17:55; Start 12/31/19 at 18:00; Stop 12/31/19 at 18:01; Status DC Metoclopramide HCl (Reglan Vial) 10 mg 1X ONCE IVP Last administered on 12/31/19 at 17:56; Start 12/31/19 at 18:00; Stop 12/31/19 at 18:01; Status DC Ondansetron HCl (Zofran) 4 mg PRN Q8HRS PRN IV NAUSEA/VOMITING Last administered on 01/01/20at 05:37; Start 12/31/19 at 20:00; Stop 01/01/20 at 10:09; Status DC Morphine Sulfate (Morphine Sulfate) 4 mg PRN Q2HR PRN IV PAIN Last administered on 01/01/20at 14:15; Start 12/31/19 at 20:00; Stop 01/01/20 at 19:59; Status DC Morphine Sulfate (Morphine Sulfate) 2 mg PRN Q1HR PRN IV PAIN Last administered on 01/04/20at 08:24; Start 12/31/19 at 20:15 Acetaminophen/ Hydrocodone Bitart (Lortab 5/325) 1 tab PRN Q4HRS PRN PO MILD PAIN 1-3; Start 12/31/19 at 20:15; Stop 01/01/20 at 10:09; Status DC Acetaminophen/ Hydrocodone Bitart (Lortab 5/325) 2 tab PRN Q4HRS PRN PO MODERATE PAIN, SEVERE PAIN; Start 12/31/19 at 20:15; Stop 01/01/20 at 10:09; Status DC Docusate Sodium (Colace) 100 mg BID PO Last administered on 01/04/20at 08:19; Start 12/31/19 at 21:00 Heparin Sodium (Porcine) (Heparin Sodium) 5,000 unit Q8HRS SQ Last administered on 01/04/20at 05:44; Start 12/31/19 at 22:00 Zolpidem Tartrate (Ambien) 5 mg PRN QHS PRN PO INSOMNIA; Start 12/31/19 at 20:30 Ibuprofen (Motrin) 600 mg PRN Q6HRS PRN PO INFLAMMATION; Start 12/31/19 at 20:30 Diazepam (Valium) 7.5 mg HS PO Last administered on 01/03/20at 20:38; Start 12/31/19 at 22:15 Famotidine (Pepcid) 20 mg HS PO Last administered on 12/31/19at 22:51; Start 12/31/19 at 22:15; Stop 01/01/20 at 12:36; Status DC Multivitamins (Thera M Plus) 1 tab DAILY PO Last administered on 01/02/20at 13:48; Start 01/01/20 at 09:00 Oxycodone/ Acetaminophen (Percocet 5/325) 1 tab PRN Q6HRS PRN PO moderate- severe pain, 2nd forbes Last administered on 01/03/20at 14:22; Start 12/31/19 at 22:15 Pharmacy Consult (C.diff Med Screen By Rx) 1 each 1X ONCE MC ; Start 01/01/20 at 09:00; Stop 01/01/20 at 09:01; Status Cancel Ondansetron HCl (Zofran) 4 mg PRN Q6HRS PRN IVP NAUSEA/VOMITING, 1st choice Last administered on 01/01/20at 17:03; Start 01/01/20 at 10:00 Acetaminophen/ Hydrocodone Bitart (Lortab 5/325) 1 tab PRN Q4HRS PRN PO MILD PAIN 1-3; Start 01/01/20 at 10:00 Acetaminophen/ Hydrocodone Bitart (Lortab 5/325) 2 tab PRN Q4HRS PRN PO MODERATE PAIN, SEVERE PAIN Last administered on 01/04/20at 08:20; Start 01/01/20 at 10:00 Docusate Sodium (Colace) 100 mg BID PO ; Start 01/01/20 at 10:30; Status Cancel Sodium Chloride 1,000 ml @ 75 mls/hr [id number] IV Last administered on 01/03/20at 23:44; Start 01/01/20 at 10:45 Pantoprazole Sodium (Protonix) 40 mg DAILYAC PO Last administered on 01/04/20at 05:44; Start 01/01/20 at 13:00 Dicyclomine HCl (Bentyl) 10 mg PRN QID PRN PO ABDOMINAL PAIN Last administered on 01/01/20at 20:21; Start 01/01/20 at 12:45 Multi-Ingredient Mouthwash/Gargle (Gi Cocktail) 20 ml PRN QID PRN PO CHEST PAIN; Start 01/01/20 at 12:45 Nicotine (Nicoderm Cq 14mg) 1 patch DAILY TD Last administered on 01/04/20 08:19; Start 01/01/20 at 17:00 Metoclopramide HCl (Reglan Vial) 10 mg PRN Q6HRS PRN IVP NAUSEA/VOMITING, 2nd choice Last administered on 01/02/20 09:59; Start 01/01/20 at 18:45 Polyethylene Glycol (miraLAX Powder BULK BOTTLE) 238 gm 1X ONCE PO Last admini stered on 01/02/20at 11:46; Start 01/02/20 at 11:15; Stop 01/02/20 at 11:16; Status DC Barium Sulfate (Liquid E-Z Paque) 710 ml 1X ONCE PO Last administered on 01/03/20at 09:15; Start 01/03/20 at 09:15; Stop 01/03/20 at 09:16; Status DC Barium Sulfate (Liquid E-Z Paque) 710 ml 1X ONCE PO Last administered on 01/03/20at 13:26; Start 01/03/20 at 13:30; Stop 01/03/20 at 13:31; Status DC Simethicone (Gas-X) 80 mg PRN AFTMEALHC PRN PO GAS / BLOATING Last administered on 01/03/20at 16:16; Start 01/03/20 at 16:15 Active Scripts Active Zofran (Ondansetron Hcl) 4 Mg Tablet 4 Mg PO PRN TID PRN nausea/vomiting Dicyclomine Hcl 20 Mg Tablet 1 Tab PO TID Pepcid (Famotidine) 20 Mg Tablet 20 Mg PO HS 14 Days Reported Tramadol Hcl 50 Mg Tablet 50 Mg PO BID PRN Valium (Diazepam) 5 Mg Tablet 7.5 Mg PO HS Multivitamins (Multivitamin) 1 Each Capsule 1 Cap PO DAILY 30 Days Allergies Allergies: Coded Allergies: adhesive (Verified Allergy, Intermediate, Rash, 07/15/19) latex (Verified Allergy, Intermediate, Rash, 07/15/19) ROS Gastrointestinal: Yes Abdominal Pain Physical Exam General: Alert, Oriented X3, Cooperative, moderate distress HEENT: Atraumatic, PERRLA, EOMI Lungs: Clear to auscultation, Normal air movement Heart: Regular rate, No murmurs Abdomen: Normal bowel sounds, Soft, Other (Diffusely tender to palpation with guarding no peritoneal signs) Extremities: No edema Skin: No significant lesion Neuro: Normal speech Psych/Mental Status: Mental status NL Vitals VITALS Vital Signs Date Time Temp Pulse Resp B/P (MAP) Pulse Ox O2 Delivery O2 Flow Rate FiO2 01/04/20 08:24 Room Air 01/04/20 07:00 98.1 94 19 118/74 (89) 96 98.1 Labs Labs Laboratory Tests Test 01/02/20 16:20 01/03/20 04:35 01/04/20 03:55 Stool Occult Blood Negative (NEG) Sodium Level 144 mmol/L (136-145) 145 mmol/L (136-145) Potassium Level 3.4 mmol/L (3.5-5.1) 3.6 mmol/L (3.5-5.1) Chloride Level 110 mmol/L (98-107) 108 mmol/L (98-107) Carbon Dioxide Level 29 mmol/L (21-32) 29 mmol/L (21-32) Anion Gap 5 (6-14) 8 (6-14) Blood Urea Nitrogen 4 mg/dL (7-20) 4 mg/dL (7-20) Creatinine 0.6 mg/dL (0.6-1.0) 0.7 mg/dL (0.6-1.0) Estimated GFR (Cockcroft-Gault) 112.5 94.2 Glucose Level 86 mg/dL (70-99) 78 mg/dL (70-99) Calcium Level 7.8 mg/dL (8.5-10.1) 8.2 mg/dL (8.5-10.1) Laboratory Tests Test 01/04/20 03:55 Sodium Level 145 mmol/L (136-145) Potassium Level 3.6 mmol/L (3.5-5.1) Chloride Level 108 mmol/L (98-107) Carbon Dioxide Level 29 mmol/L (21-32) Anion Gap 8 (6-14) Blood Urea Nitrogen 4 mg/dL (7-20) Creatinine 0.7 mg/dL (0.6-1.0) Estimated GFR (Cockcroft-Gault) 94.2 Glucose Level 78 mg/dL (70-99) Calcium Level 8.2 mg/dL (8.5-10.1) Images Images CT scan of the abdomen pelvis did not show any abnormalities or etiology for her abdominal pain Small bowel follow-through essentially normal slightly slow transit time but no evidence of strictures or obstructions Assessment/Plan Assessment/Plan Diffuse chronic abdominal pain by exam almost appears to be musculoskeletal. Unlikely cause of pain is adhesions to mesh Would recommend pain management consult Dr. Bustamante see if there is anything he might have to add for control of her pain TAWNYA MONET MD Jan 04, 2020 08:45
[2020-01-04] MEDS: METOCLOPRAMIDE HCL 10 MG/2 ML VIAL. IVP PRN (09:41)
[2020-01-04 11:05] VITALS: BP 106/71
--- NOTE | 2020-01-04 12:49 | PDOC ---
G I PROGRESS NOTE Subjective Bilateral LQ pain still present; no big change. Able to eat and stool. Also LUQ pain. Physical Exam Lungs clear. RRR Abdomen Soft. Mild LQ tenderness. What's tender in LUQ clearly a rib. Review of Relevant I have reviewed the following items quinn (where applicable) has been applied. Labs Laboratory Tests Test 01/02/20 16:20 01/03/20 04:35 01/04/20 03:55 Stool Occult Blood Negative (NEG) Sodium Level 144 mmol/L (136-145) 145 mmol/L (136-145) Potassium Level 3.4 mmol/L (3.5-5.1) 3.6 mmol/L (3.5-5.1) Chloride Level 110 mmol/L (98-107) 108 mmol/L (98-107) Carbon Dioxide Level 29 mmol/L (21-32) 29 mmol/L (21-32) Anion Gap 5 (6-14) 8 (6-14) Blood Urea Nitrogen 4 mg/dL (7-20) 4 mg/dL (7-20) Creatinine 0.6 mg/dL (0.6-1.0) 0.7 mg/dL (0.6-1.0) Estimated GFR (Cockcroft-Gault) 112.5 94.2 Glucose Level 86 mg/dL (70-99) 78 mg/dL (70-99) Calcium Level 7.8 mg/dL (8.5-10.1) 8.2 mg/dL (8.5-10.1) Laboratory Tests Test 01/04/20 03:55 Sodium Level 145 mmol/L (136-145) Potassium Level 3.6 mmol/L (3.5-5.1) Chloride Level 108 mmol/L (98-107) Carbon Dioxide Level 29 mmol/L (21-32) Anion Gap 8 (6-14) Blood Urea Nitrogen 4 mg/dL (7-20) Creatinine 0.7 mg/dL (0.6-1.0) Estimated GFR (Cockcroft-Gault) 94.2 Glucose Level 78 mg/dL (70-99) Calcium Level 8.2 mg/dL (8.5-10.1) AM cortisol normal. Vitals/I & O Vital Sign - Last 24 Hours 01/03/20 01/03/20 01/03/20 01/03/20 13:04 13:50 14:22 15:00 Temp 97.8 97.8 Pulse 82 Resp 18 B/P (MAP) 102/71 (81) Pulse Ox 100 100 100 97 O2 Delivery Room Air Room Air Room Air Room Air 01/03/20 01/03/20 01/03/20 01/03/20 16:37 17:45 19:00 20:00 Temp 98.0 98.0 Pulse 93 Resp 18 B/P (MAP) 110/64 (79) Pulse Ox 97 97 96 O2 Delivery Room Air Room Air Room Air Room Air 01/03/20 01/03/20 01/04/20 01/04/20 23:00 23:42 00:42 03:00 Temp 98.0 97.6 98.0 97.6 Pulse 76 73 Resp 18 20 20 18 B/P (MAP) 112/78 (89) 101/67 (78) Pulse Ox 94 94 94 96 O2 Delivery Room Air Room Air Room Air Room Air 01/04/20 01/04/20 01/04/20 01/04/20 07:00 08:24 08:54 09:20 Temp 98.1 98.1 Pulse 94 Resp 19 B/P (MAP) 118/74 (89) Pulse Ox 96 O2 Delivery Room Air Room Air Room Air Room Air 01/04/20 01/04/20 01/04/20 11:05 11:41 12:11 Temp 97.7 97.7 Pulse 98 Resp 15 B/P (MAP) 106/71 (83) Pulse Ox 97 O2 Delivery Room Air Room Air Room Air Intake and Output 01/03/20 01/03/20 01/04/20 15:00 23:00 07:00 Intake Total 0 ml 100 ml Balance 0 ml 100 ml Problem List Problems Medical Problems: (1) Unexplained weight loss Status: Acute Assessment It would seem historically the LQ pain is related to the hysterectomy; unclear the mesh is issue even though historically SB tethered to it. Does have endometriosis--this contributing? LUQ pain, rib-related. Has h/o Lyme--neuropathic? Plan of Care Note Consider SERVICES EXECUTIVE opinion if not obtained. Justicifation of Admission Dx: Justifications for Admission: Justification of Admission Dx: Yes HENRY ALTAMIRANO MD Jan 04, 2020 12:49
--- NOTE | 2020-01-04 14:13 | PDOC ---
[facility] PROGRESS NOTE Date of Service DOS: DATE: 01/04/20 TIME: 13:59 Chief Complaint Chief Complaint Acute on chronic abdominal pain with unclear etiology, SBFT did show slow gut transit time without any evidence of strictures or obstruction History of Lyme disease that was treated History of hysterectomy for endometriosis History of a mesh placement for umbilical hernia repair in 2018 History of panic disorder Appreciate surgery evaluation Appreciate GI evaluation Pending Maxillofacial Surgeon evaluation Pending pain evaluation Pending psych evaluation Advance diet as tolerated Ambulation and SCD for DVT prophylaxis Pepcid GI prophylaxis ADA diet Full code Discussed with RN and SW Disposition pending evaluation from psych, pain, gynecology Surrogate decision maker is the History of Present Illness History of Present Illness 01/04/2020 No acute events overnight. Abdominal pain persist and has not changed since her admission. Patient does report normal bowel movements. Tolerating diet. During my interview, patient states that she was treated for panic disorder in the past and she has tried several SSRI and SNRI which she said that caused her to be irritated. She did use Valium at some point and doxepin which she states that were the only medications that did help her. Patient's chart, labs, images were reviewed and discussed with RN Vitals/I&O Vitals/I&O: Vital Signs Date Time Temp Pulse Resp B/P (MAP) Pulse Ox O2 Delivery O2 Flow Rate FiO2 01/04/20 12:11 Room Air 01/04/20 11:05 97.7 98 15 106/71 (83) 97 97.7 I & O 01/03/20 01/03/20 01/04/20 15:00 23:00 07:00 Intake Total 0 ml 100 ml Balance 0 ml 100 ml Physical Exam Physical Exam: GEN: No apparent distress. Alert and oriented HEENT: Normal cephalic, atraumatic, external auditory canals are patent NECK: Supple, no JVD, no thyromegaly was noted LUNGS: Bilateral crackles HEART: RRR, S1, S2 present. Peripheral pulses intact, no obvious murmurs not ed ABDOMEN: Soft, vague abdominal tenderness in all quadrants. No point tenderness. Normal active positive bowel sounds, no organomegaly, normal bowel sounds. Laparoscopic trocar sites well-healed EXTREMITIES: Without clubbing, cyanosis, or edema. Pedal pulses intact. Negative Homans sign General: Alert, Oriented X3, Cooperative, moderate distress Heart: Regular rate, No murmurs Abdomen: Normal bowel sounds, Soft, Other (Diffusely tender to palpation with guarding no peritoneal signs) Extremities: No edema Skin: No significant lesion Labs Labs: Laboratory Tests Test 01/04/20 03:55 Sodium Level 145 mmol/L (136-145) Potassium Level 3.6 mmol/L (3.5-5.1) Chloride Level 108 mmol/L (98-107) Carbon Dioxide Level 29 mmol/L (21-32) Anion Gap 8 (6-14) Blood Urea Nitrogen 4 mg/dL (7-20) Creatinine 0.7 mg/dL (0.6-1.0) Estimated GFR (Cockcroft-Gault) 94.2 Glucose Level 78 mg/dL (70-99) Calcium Level 8.2 mg/dL (8.5-10.1) Assessment and Plan Assessmemt and Plan Problems Medical Problems: (1) Unexplained weight loss Status: Acute Comment Review of Relevant I have reviewed the following items quinn (where applicable) has been applied. Medications: Current Medications Medications (Trade) Dose Ordered Sig/Jasmeet Route PRN Reason Start Time Stop Time Status Last Admin Dose Admin Simethicone (Gas-X) 80 mg PRN AFTMEALHC PRN PO GAS / BLOATING 01/03/20 16:15 01/03/20 16:16 Justifications for Admission Other Justification LUBA SALDIVAR MD Jan 04, 2020 14:13
[2020-01-04] MEDS: SIMETHICONE 80 MG TAB.CHEW PO PRN (15:08)
[2020-01-04 15:14] VITALS: BP 100/71
--- NOTE | 2020-01-04 16:48 | PDOC1 ---
History & Psych Evaluation Date of Service: DOS: DATE: 01/04/20 TIME: 16:48 Source: Source: Caregiver, Chart review, Patient Identification: Identification She is a 39-year-old female with history of panic disorder Chief Complaint: Chief Complaint Generalized anxiety, panic attacks History of Present Illness: HPI: She is a 39-year-old young female seen for initial psychiatric assessment. She has a history of panic attacks and generalized anxiety disorder. Upon interview, she appears cooperative, interactive, but anxious. States, she has history of panic attacks started when she got Lyme disease to 2 years ago. States, at that point she was struggling with anxiety, depression, and frequent panic attacks for which multiple SSRIs were tried but either they were ineffective or worsen panic attacks. Only medication that helps with panic attack was Valium 7.5 mg. However, then she is stuck with Valium and whenever tried to stop panic attacks reappeared. Her Lyme disease were treated with antibiotics. Her panic attacks were reasonably controlled until 2 to 3 weeks ago she got into a process of hysterectomy. Now she is post hysterectomy and is struggling with pain. Additionally when she was given hormone replacement therapy her panic attacks restarted. Initially, they were 4-5 panic attacks every day with typical symptomatology including nausea, tingling feeling, difficulty catching of her breath, intense fear and having heart attack. When she stopped hormone replacement therapy, her panic attacks went away. She is now on Valium 7.5 mg daily and panic attacks have reduced in frequency. She had her last panic attack in hospital. Aside from that, she is denying overt depression, bipolar mood disorder, auditory visual hallucinations, or history of trauma PTSD. She does endorse anxiety these days with intermittent panic attacks. Past Psychiatric History: Previous history of generalized anxiety and panic attacks and depression when she got Lyme disease. She was treated and recovered. Denies history of psychiatric hospital admission. Denies history of suicidal attempt. However has history of suicidal ideation when she got Lyme disease " I have dark thoughts then" Past Medical History: Please see medical chart for details Family History: Denies family history of psychiatric illness Social History: Social History: She is , has children. Denies legal issues. Denies alcohol abuse or illicit substance use. Current Medications: Current Medications Current Medications Medications (Trade) Dose Ordered Sig/Jasmeet Start Time Stop Time Status Last Admin Dose Admin Acetaminophen/ Hydrocodone Bitart (Lortab 5/325) 2 tab PRN Q4HRS PRN 01/01/20 10:00 01/04/20 15:02 2 TAB Barium Sulfate (Liquid E-Z Paque) 710 ml 1X ONCE 01/03/20 13:30 01/03/20 13:31 DC 01/03/20 13:26 710 ML Diazepam (Valium) 7.5 mg HS 12/31/19 22:15 01/03/20 20:38 7.5 MG Dicyclomine HCl (Bentyl) 10 mg PRN QID PRN 01/01/20 12:45 01/01/20 20:21 10 MG Docusate Sodium (Colace) 100 mg BID 01/01/20 10:30 Cancel Famotidine (Pepcid) 20 mg HS 12/31/19 22:15 01/01/20 12:36 DC 12/31/19 22:51 20 MG Fentanyl Citrate (Fentanyl 2ml Vial) 50 mcg 1X ONCE 12/31/19 18:00 12/31/19 18:01 DC 12/31/19 17:55 50 MCG Heparin Sodium (Porcine) (Heparin Sodium) 5,000 unit Q8HRS 12/31/19 22:00 01/04/20 15:08 5,000 UNIT Ibuprofen (Motrin) 600 mg PRN Q6HRS PRN 12/31/19 20:30 Info (CONTRAST GIVEN -- Rx MONITORING) 1 each PRN DAILY PRN 12/31/19 17:30 01/02/20 17:29 DC Iohexol (Omnipaque 240 Mg/ml) 30 ml 1X ONCE 12/31/19 17:30 12/31/19 17:31 DC 12/31/19 17:30 30 ML Iohexol (Omnipaque 300 Mg/ml) 75 ml 1X ONCE 12/31/19 17:30 12/31/19 17:31 DC 12/31/19 17:30 75 ML Metoclopramide HCl (Reglan Vial) 10 mg PRN Q6HRS PRN 01/01/20 18:45 01/04/20 09:41 10 MG Morphine Sulfate (Morphine Sulfate) 2 mg PRN Q1HR PRN 12/31/19 20:15 01/04/20 15:02 2 MG Multi-Ingredient Mouthwash/Gargle (Gi Cocktail) 20 ml PRN QID PRN 01/01/20 12:45 Multivitamins (Thera M Plus) 1 tab DAILY 01/01/20 09:00 01/02/20 13:48 1 TAB Nicotine (Nicoderm Cq 14mg) 1 patch DAILY 01/01/20 17:00 01/04/20 08:19 1 PATCH Ondansetron HCl (Zofran) 4 mg PRN Q6HRS PRN 01/01/20 10:00 01/01/20 17:03 4 MG Oxycodone/ Acetaminophen (Percocet 5/325) 1 tab PRN Q6HRS PRN 12/31/19 22:15 01/03/20 14:22 1 TAB Pantoprazole Sodium (Protonix) 40 mg DAILYAC 01/01/20 13:00 01/04/20 05:44 40 MG Pharmacy Consult (C.diff Med Screen By Rx) 1 each 1X ONCE 01/01/20 09:00 01/01/20 09:01 Cancel Polyethylene Glycol (miraLAX Powder BULK BOTTLE) 238 gm 1X ONCE 01/02/20 11:15 01/02/20 11:16 DC 01/02/20 11:46 238 GM Simethicone (Gas-X) 80 mg PRN AFTMEALHC PRN 01/03/20 16:15 01/04/20 15:08 80 MG Sodium Chloride 1,000 ml @ 75 mls/hr [id number] 01/01/20 10:45 01/03/20 23:44 75 MLS/HR Zolpidem Tartrate (Ambien) 5 mg PRN QHS PRN 12/31/19 20:30 Allergies: Allergies: Coded Allergies: adhesive (Verified Allergy, Intermediate, Rash, 07/15/19) latex (Verified Allergy, Intermediate, Rash, 07/15/19) Mental Status Examination: Mental Status Examination female appears her stated age, fairly groomed, fairly nourished Cooperative and interactive but looks nervous Fully alert and oriented Thought processes coherent and goal-directed Denies auditory or visual hallucinations Denies suicidal or homicidal thoughts No abnormal perception noted Mood is anxious Affect is euthymic Insight is good Impulse control is good Judgment is good Attention span and concentration fair Recent and remote memory intact ROS: CONSTITUTIONAL: No fever or chills EYES: No recent changes SKIN: No rash or itching CARDIOVASCULAR: No chest pain, syncope, palpitations, or edema RESPIRATORY: No SOB or cough GASTROINTESTINAL: No nausea, vomiting or abdominal pain NEUROLOGICAL: No headaches or weakness ENDOCRINE: No cold or heat intoleranc MUSCULOSKELETAL: Positive for pain LYMPHATICS: No enlarged lymph nodes PSYCHIATRIC: Positive for anxiety and panic attacks Physical Exam: Refer to Physician's note. BIRD RAISER: No focal deficit MSK: No EPS, TDK, or abnormal involuntary movements Vitals: Vitals Vital Signs Date Time Temp Pulse Resp B/P (MAP) Pulse Ox O2 Delivery O2 Flow Rate FiO2 01/04/20 16:02 Room Air 01/04/20 15:14 98.2 94 16 100/71 (81) 98 98.2 Labs: Labs Laboratory Tests Test 01/03/20 04:35 01/04/20 03:55 Sodium Level 144 mmol/L (136-145) 145 mmol/L (136-145) Potassium Level 3.4 mmol/L (3.5-5.1) 3.6 mmol/L (3.5-5.1) Chloride Level 110 mmol/L (98-107) 108 mmol/L (98-107) Carbon Dioxide Level 29 mmol/L (21-32) 29 mmol/L (21-32) Anion Gap 5 (6-14) 8 (6-14) Blood Urea Nitrogen 4 mg/dL (7-20) 4 mg/dL (7-20) Creatinine 0.6 mg/dL (0.6-1.0) 0.7 mg/dL (0.6-1.0) Estimated GFR (Cockcroft-Gault) 112.5 94.2 Glucose Level 86 mg/dL (70-99) 78 mg/dL (70-99) Calcium Level 7.8 mg/dL (8.5-10.1) 8.2 mg/dL (8.5-10.1) Laboratory Tests Test 01/04/20 03:55 Sodium Level 145 mmol/L (136-145) Potassium Level 3.6 mmol/L (3.5-5.1) Chloride Level 108 mmol/L (98-107) Carbon Dioxide Level 29 mmol/L (21-32) Anion Gap 8 (6-14) Blood Urea Nitrogen 4 mg/dL (7-20) Creatinine 0.7 mg/dL (0.6-1.0) Estimated GFR (Cockcroft-Gault) 94.2 Glucose Level 78 mg/dL (70-99) Calcium Level 8.2 mg/dL (8.5-10.1) Diagnosis: Diagnosis: 1. Generalized anxiety disorder 2. Panic attacks Assessment: She is a young female with prior history of depression and anxiety and panic attacks struggling with frequent panic attacks due to her pain secondary to hysterectomy. Her panic attacks, and anxiety were reasonably controlled until she got on to the process of hysterectomy. She is in agreement to trial Zyprexa which would help with anxiety, insomnia, and panic attacks. Plan: Start Zyprexa 5 mg nightly for anxiety and panic attacks and insomnia. Continue Valium 7.5 mg daily for anxiety. Risk, benefits, alternatives of the treatment are discussed. She is in agreement with plan and voiced understanding. Adverse drug reaction of the medications prescribed were also discussed in de tail. She is cautioned about oversedation and necessary instructions given. Monitor closely for panic attacks, symptomatology, and adverse drug reaction. We will adjust medications accordingly. Psychoeducation provided. Supportive psychotherapy provided. Thank you for involving inpatient care FILI SHAIKH MD Jan 04, 2020 16:48
[2020-01-04] MEDS: IV NORMAL SALINE 1000ML BAG 1,000 ML IV SCH (17:38)
[2020-01-04 19:50] VITALS: BP 105/64
[2020-01-04] MEDS: diazePAM 5 MG TABLET PO SCH (21:43)
[2020-01-04] MEDS ORDERED: OLANZapine 5 MG TABLET PO SCH (23:00)
[2020-01-04 23:15] VITALS: BP 100/67
[2020-01-05] MEDS: IV NORMAL SALINE 1000ML BAG 1,000 ML IV SCH (02:40)
[2020-01-05 02:50] VITALS: BP 92/52
[2020-01-05] MEDS: HEPARIN for SUB-Q USE 5,000 UNIT/ML VIAL. SQ SCH ×2 (06:00→14:00)
[2020-01-05 07:00] VITALS: BP 98/68
[2020-01-05] MEDS: MULTIVITAMIN with MINERAL TABLET. PO SCH (07:22)
[2020-01-05] MEDS: PANTOPRAZOLE 40 MG TABLET.DR. PO SCH (07:30)
[2020-01-05 07:46] LABS: CALCIUM 8.5 mg/dL (8.5-10.1); CREATININE 0.5 mg/dL (0.6-1.0); GFR 138.8; POTASSIUM 3.4 mmol/L (3.5-5.1)
[2020-01-05] MEDS: NICOTINE 14MG PATCH. TD SCH (08:31)
[2020-01-05] MEDS: DOCUSATE SODIUM 100 MG CAPSULE. PO SCH (08:31)
[2020-01-05] MEDS: HYDROcodone/APAP 5/325MG 1 TAB TABLET PO PRN ×2 (08:32→15:33)
[2020-01-05] MEDS: SIMETHICONE 80 MG TAB.CHEW PO PRN (08:35)
[2020-01-05] MEDS: MORPHINE SULFATE 2 MG/ML VIAL. IV PRN ×2 (08:35→12:36)
--- NOTE | 2020-01-05 09:15 | PDOC ---
DYLAN MARTINEZ CANCELING MACHINE OPERATOR 01/05/20 0915: SURGICAL PROGRESS NOTE DATE: 01/05/20 TIME: 09:14 Subjective pain about the same tolerating diet Vital Signs Vital Signs Date Time Temp Pulse Resp B/P (MAP) Pulse Ox O2 Delivery O2 Flow Rate FiO2 01/05/20 09:05 Room Air 01/05/20 07:00 97.8 95 18 98/68 (78) 99 97.8 I&O Intake and Output 01/05/20 06:59 Intake Total 1600 ml Balance 1600 ml Intake Oral 400 ml IV Total 600 ml Other 600 ml # Voids 2 General: Alert, Oriented X3, Cooperative Abdomen: Soft, Other (TTP RLQ, LUQ) Labs Laboratory Tests Test 01/04/20 03:55 01/05/20 06:51 Sodium Level 145 mmol/L (136-145) 144 mmol/L (136-145) Potassium Level 3.6 mmol/L (3.5-5.1) 3.4 mmol/L (3.5-5.1) Chloride Level 108 mmol/L (98-107) 108 mmol/L (98-107) Carbon Dioxide Level 29 mmol/L (21-32) 26 mmol/L (21-32) Anion Gap 8 (6-14) 10 (6-14) Blood Urea Nitrogen 4 mg/dL (7-20) 4 mg/dL (7-20) Creatinine 0.7 mg/dL (0.6-1.0) 0.5 mg/dL (0.6-1.0) Estimated GFR (Cockcroft-Gault) 94.2 138.8 Glucose Level 78 mg/dL (70-99) 72 mg/dL (70-99) Calcium Level 8.2 mg/dL (8.5-10.1) 8.5 mg/dL (8.5-10.1) Laboratory Tests Test 01/05/20 06:51 Sodium Level 144 mmol/L (136-145) Potassium Level 3.4 mmol/L (3.5-5.1) Chloride Level 108 mmol/L (98-107) Carbon Dioxide Level 26 mmol/L (21-32) Anion Gap 10 (6-14) Blood Urea Nitrogen 4 mg/dL (7-20) Creatinine 0.5 mg/dL (0.6-1.0) Estimated GFR (Cockcroft-Gault) 138.8 Glucose Level 72 mg/dL (70-99) Calcium Level 8.5 mg/dL (8.5-10.1) Problem List Problems Medical Problems: (1) Unexplained weight loss Status: Acute 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 Removal of mesh or lysis of adhesions unlikely to be beneficial. Agree with Sahu assessment and plan DYLAN MARTINEZ APRN Jan 05, 2020 09:15 TAWNYA MONET MD Jan 05, 2020 11:55
--- NOTE | 2020-01-05 09:59 | NUR ---
SW following. Discussed with RN, pt from home with family, room air, regular diet. Pain management consulted. RN advised no SW needs, anticipate discharge home today. SW will continue to follow, should any discharge needs arise.
--- NOTE | 2020-01-05 10:26 | PDOC ---
Date of Service: DATE: 01/05/20 TIME: 10:18 Subjective: Subjective: Seems overwhelmed - nausea is better but abdominal pain persists - requiring Lortab and morphine. Describes "rib pain" in LUQ as d/w Dr. Chow yesterday, but also pain all over abdomen. Stooling. Kids started school today, wonders when she might be able to go home. Objective: Objective: Cortisol normal. ?refused pantoprazole Vital Signs: Vital Signs Date Time Temp Pulse Resp B/P (MAP) Pulse Ox O2 Delivery O2 Flow Rate FiO2 01/05/20 09:32 Room Air 01/05/20 07:00 97.8 95 18 98/68 (78) 99 97.8 Labs: Laboratory Tests Test 01/05/20 06:51 Sodium Level 144 mmol/L Potassium Level 3.4 mmol/L Chloride Level 108 mmol/L Carbon Dioxide Level 26 mmol/L Anion Gap 10 Blood Urea Nitrogen 4 mg/dL Creatinine 0.5 mg/dL Estimated GFR (Cockcroft-Gault) 138.8 Glucose Level 72 mg/dL Calcium Level 8.5 mg/dL Imaging: SBS IMPRESSION: 1. Mildly delayed transit time to the colon approximately 3 hours. 2. No evidence of small bowel obstruction or stricture. 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 CT and SBS unrevealing. Will review any additional inpatient recommendations w/ Dr. Thibodeaux. Justicifation of Admission Dx: Justifications for Admission: Justification of Admission Dx: Yes PATRICIA ARIZMENDI Jan 05, 2020 10:26
--- NOTE | 2020-01-05 10:38 | PDOC ---
SUBJECTIVE Subjective Abdominal pain OBJECTIVE Objective Patient is a 39yo female with history of endometriosis, status post hysterectomy, presents with constant abdominal pain. Patient has a history of chronic abdominal pain over the past 2 years secondary to abdominal hernia with mesh repair in 2018 and peptic ulcer disease. She had a hysterectomy on 12/09/2019, and reports worsening of her abdominal pain since that time, and increasing panic attacks. Vital Signs Vital Signs Date Time Temp Pulse Resp B/P (MAP) Pulse Ox O2 Delivery O2 Flow Rate FiO2 01/05/20 09:32 Room Air 01/05/20 09:05 Room Air 01/05/20 08:35 Room Air 01/05/20 08:32 Room Air 01/05/20 07:00 97.8 95 18 98/68 (78) 99 Room Air 97.8 01/05/20 02:50 98.0 76 18 92/52 (65) 97 Room Air 98.0 01/04/20 23:15 97.9 77 18 100/67 (78) 98 Room Air 97.9 01/04/20 22:44 20 Room Air 01/04/20 21:44 20 Room Air 01/04/20 20:05 Room Air 01/04/20 19:50 98.0 95 18 105/64 (78) 96 Room Air 98.0 01/04/20 19:49 20 Room Air 01/04/20 19:19 Room Air 01/04/20 16:02 Room Air 01/04/20 15:32 Room Air 01/04/20 15:14 98.2 94 16 100/71 (81) 98 Room Air 98.2 01/04/20 15:02 Room Air 01/04/20 15:02 Room Air 01/04/20 12:11 Room Air 01/04/20 11:41 Room Air 01/04/20 11:05 97.7 98 15 106/71 (83) 97 Room Air 97.7 I & O Intake and Output 01/05/20 07:00 Intake Total 1600 ml Balance 1600 ml Intake Oral 400 ml IV Total 600 ml Other 600 ml # Voids 2 ASSESSMENT/PLAN Assessment/Plan 39-year-old female with long history abdominal pain status post hernia repair with mesh and recent hysterectomy laparoscopic-assisted. Patient reports no improvement in abdominal pain with tramadol. Inpatient medications include hydrocodone and oxycodone, with better pain control. Rec: Substitute tramadol with hydrocodone as tolerated. Cautioned with combined use of diazepam. Follow-up with plans for hernia mesh removal COMMENT Lab Laboratory Tests Test 01/05/20 06:51 Sodium Level 144 mmol/L (136-145) Potassium Level 3.4 mmol/L (3.5-5.1) Chloride Level 108 mmol/L (98-107) Carbon Dioxide Level 26 mmol/L (21-32) Anion Gap 10 (6-14) Blood Urea Nitrogen 4 mg/dL (7-20) Creatinine 0.5 mg/dL (0.6-1.0) Estimated GFR (Cockcroft-Gault) 138.8 Glucose Level 72 mg/dL (70-99) Calcium Level 8.5 mg/dL (8.5-10.1) Justifications for Admission Other Justification Nutrition Consultation Dietary Evaluation: Recommendations by RD: Dietary education by RD, Increase Calorie Intake, Add supplement feedings Comments: Add chocolate ensure to lunches Expected Outcomes/Goals: pt will achieve PO intake meeting 75% of calculated needs Interpretation of weight loss: >1-2% in 1 week Malnutrition Findings: Food and Nutrition Intake (Sev: <50% est energy req 5days Body Fat Depletion (Non Severe: Mod to Severe Weight Status: Underweight Fluid Accumulation (N/A): N/A CATIA GUNDERSON MD Jan 05, 2020 10:38
[2020-01-05 11:00] VITALS: BP 107/70
[2020-01-05] MEDS ORDERED: CAPSAICIN 0.025% TOPICAL CREAM 60GM TUBE. TP SCH (11:00)
[2020-01-05] MEDS ORDERED: LIDOCAINE (700MG/PATCH) PATCH. TD SCH (11:00)
--- NOTE | 2020-01-05 11:45 | PDOC2 ---
CONSULT Date of Consult Date of Consult DATE: 01/05/20 TIME: 11:44 Reason for Consult Reason for Consult: abd/pelvic pain s/p LAVH/BSO History of Present Illness Reason for Visit: The pt is a 39y s/p LAVH/BSO on 12/09/19 who was sent to the ER from a PO appt for pelvic pain. The pt feels that it all began in 2018 when her family was stationed in [place]. After her last child she developed a umb hernia. She was referred and underwent a L/S repair with mesh. About 2 months later she developed pain in one spot (near her umb). The pain persisted. The family was then relocated to the [facility] where she was bitten by a tick. 3-4 wks later she began to have symptoms. She suggested to the physicians that she may have Lyme dz, but they felt her panic attacks were related to a psychological issues so they referred to a psychiatrist. 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 Many of her pain issues (like joint pain) improved with tx. In her late 20s she noticed a change in her cycles. She also began to develop dyspareunia. She presented to her gny for a w/u of endometriosis due to her strong family hx. Prior to this the pt had only been on OCPs from 20yo 28yo. She stopped at that age b/c she felt like the pills were not effective to her body. She was also having a lot of breakthrough bleeding. Her symptoms related to the potential endometriosis was not that bad until 3-4 yrs ago. And most recently the dyspareunia. The pt underwent a Dx L/S Jan 2019. She was told that endometriosis was found as well as adhesion of her bowel to the mesh anteriorly. The pt later underwent a LABH/BSO 12/09/19. Originally the planned was to do the surgery in conjunction with general surgery, but this plan was delayed due to Covid. After elective surgeries were being rescheduled, the surgeon she was seeing had retired. She felt her pain was so severe due to the endometriosis and it was effecting her quality of life that she did not want to wait to find a anew surgeon to perform the taken down of the adhesions concurrently. She was told her ovaries were removed as well due to the endometriosis being located on the ovaries. She was told that she had endometriosis on her bladder that may be causing symptoms of an UTI. The path from her surgery was as follows: Uterus and attached left fallopian tube and ovary, and detached right fallopian tube and ovary, laparoscopic assisted vaginal hysterectomy and bilateral salpingo-oophorectomy: - Adenomyosis, uterine corpus, subbasal, focal. - Chronic cervicitis with focal atypical squamous metaplasia. - Proliferative endometrium. - Left paratubal cyst. - Cystic follicles of bilateral ovaries with focal regressive changes. The pt feels most of her pain related to ovulation has resolved since the surgery, but about a wk later she developed RLQ pain that eventually spread to her back. She also developed N/V that she felt was 2/2 to the pain. Over the last 3wks she has lost about 10 lbs. After the surgery she did develop vasomotor symptoms of menopause so she was started on HRT at her 1 wk PO visit. She was started on Bijuva (Estradiol 1 mg and progesterone 100 mg) and an additional 1 mg of Estradiol. She states that 4 days later she had increased anxiety so the Bijuva, so it was stopped. Her symtpoms of anxiety improved. The Estradiol was continued. Her vasomotor symptoms are noqw just mild. When she presented to the ER she underwent CT revealing no acute processes. During the hospitalization she has seen GI, Gen Surg and Psychiatry. Her w/u has been neg along with the CT a small bowel series has been reassuring as well. 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 H/o OCP ~8yrs (20yo to 28yo) H/o ERT for ~3wks 13yo / regular / 39yo Past Medical History Cardiovascular: No pertinent hx Pulmonary: No pertinent hx GI: Other Heme/Onc: No pertinent hx Psych: No pertinent hx Past Surgical History Past Surgical History: Hernia Repair, Hysterectomy Social History <1 pack per day ALCOHOL: none Drugs: None Current Problem List Problem List Problems Medical Problems: (1) Unexplained weight loss Status: Acute Current Medications Current Medications Current Medications Sodium Chloride 1,000 ml @ 1,000 mls/hr 1X ONCE IV Last administered on 12/31/19 16:25; Start 12/31/19 at 16:00; Stop 12/31/19 at 16:59; Status DC Fentanyl Citrate (Fentanyl 2ml Vial) 50 mcg 1X ONCE IVP Last administered on 12/31/19 16:25; Start 12/31/19 at 16:15; Stop 12/31/19 at 16:16; Status DC Ondansetron HCl (Zofran) 4 mg 1X ONCE IVP Last administered on 12/31/19at 16:25; Start 12/31/19 at 16:15; Stop 12/31/19 at 16:16; Status DC Iohexol (Omnipaque 300 Mg/ml) 75 ml 1X ONCE IV Last administered on 12/31/19 17:30; Start 12/31/19 at 17:30; Stop 12/31/19 at 17:31; Status DC Iohexol (Omnipaque 240 Mg/ml) 30 ml 1X ONCE PO Last administered on 12/31/19at 17:30; Start 12/31/19 at 17:30; Stop 12/31/19 at 17:31; Status DC Info (CONTRAST GIVEN -- Rx MONITORING) 1 each PRN DAILY PRN MC SEE COMMENTS; Start 12/31/19 at 17:30; Stop 01/02/20 at 17:29; Status DC Fentanyl Citrate (Fentanyl 2ml Vial) 50 mcg 1X ONCE IVP Last administered on 12/31/19at 17:55; Start 12/31/19 at 18:00; Stop 12/31/19 at 18:01; Status DC Metoclopramide HCl (Reglan Vial) 10 mg 1X ONCE IVP Last administered on 12/31/19at 17:56; Start 12/31/19 at 18:00; Stop 12/31/19 at 18:01; Status DC Ondansetron HCl (Zofran) 4 mg PRN Q8HRS PRN IV NAUSEA/VOMITING Last administered on 01/01/20at 05:37; Start 12/31/19 at 20:00; Stop 01/01/20 at 10:09; Status DC Morphine Sulfate (Morphine Sulfate) 4 mg PRN Q2HR PRN IV PAIN Last administered on 01/01/20 14:15; Start 12/31/19 at 20:00; Stop 01/01/20 at 19:59; Status DC Morphine Sulfate (Morphine Sulfate) 2 mg PRN Q1HR PRN IV PAIN Last administered on 01/05/20at 08:35; Start 12/31/19 at 20:15 Acetaminophen/ Hydrocodone Bitart (Lortab 5/325) 1 tab PRN Q4HRS PRN PO MILD PAIN 1-3; Start 12/31/19 at 20:15; Stop 01/01/20 at 10:09; Status DC Acetaminophen/ Hydrocodone Bitart (Lortab 5/325) 2 tab PRN Q4HRS PRN PO MODERATE PAIN, SEVERE PAIN; Start 12/31/19 at 20:15; Stop 01/01/20 at 10:09; Status DC Docusate Sodium (Colace) 100 mg BID PO Last administered on 01/05/20at 08:31; Start 12/31/19 at 21:00 Heparin Sodium (Porcine) (Heparin Sodium) 5,000 unit Q8HRS SQ Last administered on 01/05/20at 06:00; Start 12/31/19 at 22:00 Zolpidem Tartrate (Ambien) 5 mg PRN QHS PRN PO INSOMNIA; Start 12/31/19 at 20:30 Ibuprofen (Motrin) 600 mg PRN Q6HRS PRN PO INFLAMMATION; Start 12/31/19 at 20:30 Diazepam (Valium) 7.5 mg HS PO Last administered on 01/04/20at 21:43; Start 12/31/19 at 22:15 Famotidine (Pepcid) 20 mg HS PO Last administered on 12/31/19at 22:51; Start 12/31/19 at 22:15; Stop 01/01/20 at 12:36; Status DC Multivitamins (Thera M Plus) 1 tab DAILY PO Last administered on 01/02/20at 13:48; Start 01/01/20 at 09:00 Oxycodone/ Acetaminophen (Percocet 5/325) 1 tab PRN Q6HRS PRN PO moderate- severe pain, 2nd forbes Last administered on 01/03/20at 14:22; Start 12/31/19 at 22:15 Pharmacy Consult (C.diff Med Screen By Rx) 1 each 1X ONCE MC ; Start 01/01/20 at 09:00; Stop 01/01/20 at 09:01; Status Cancel Ondansetron HCl (Zofran) 4 mg PRN Q6HRS PRN IVP NAUSEA/VOMITING, 1st choice Last administered on 01/01/20 17:03; Start 01/01/20 at 10:00 Acetaminophen/ Hydrocodone Bitart (Lortab 5/325) 1 tab PRN Q4HRS PRN PO MILD PAIN 1-3; Start 01/01/20 at 10:00 Acetaminophen/ Hydrocodone Bitart (Lortab 5/325) 2 tab PRN Q4HRS PRN PO MODERATE PAIN, SEVERE PAIN Last administered on 01/05/20 08:32; Start 01/01/20 at 10:00 Docusate Sodium (Colace) 100 mg BID PO ; Start 01/01/20 at 10:30; Status Cancel Sodium Chloride 1,000 ml @ 75 mls/hr [id number] IV Last administered on 01/05/20 02:40; Start 01/01/20 at 10:45 Pantoprazole Sodium (Protonix) 40 mg DAILYAC PO Last administered on 01/04/20at 05:44; Start 01/01/20 at 13:00; Stop 01/05/20 at 10:31; Status DC Dicyclomine HCl (Bentyl) 10 mg PRN QID PRN PO ABDOMINAL PAIN Last administered on 01/01/20at 20:21; Start 01/01/20 at 12:45 Multi-Ingredient Mouthwash/Gargle (Gi Cocktail) 20 ml PRN QID PRN PO CHEST PAIN; Start 01/01/20 at 12:45 Nicotine (Nicoderm Cq 14mg) 1 patch DAILY TD Last administered on 01/05/20at 08:31; Start 01/01/20 at 17:00 Metoclopramide HCl (Reglan Vial) 10 mg PRN Q6HRS PRN IVP NAUSEA/VOMITING, 2nd choice Last administered on 01/04/20at 09:41; Start 01/01/20 at 18:45 Polyethylene Glycol (miraLAX Powder BULK BOTTLE) 238 gm 1X ONCE PO Last administered on 01/02/20at 11:46; Start 01/02/20 at 11:15; Stop 01/02/20 at 11:16; Status DC Barium Sulfate (Liquid E-Z Paque) 710 ml 1X ONCE PO Last administered on 01/03/20at 09:15; Start 01/03/20 at 09:15; Stop 01/03/20 at 09:16; Status DC Barium Sulfate (Liquid E-Z Paque) 710 ml 1X ONCE PO Last administered on 01/03/20at 13:26; Start 01/03/20 at 13:30; Stop 01/03/20 at 13:31; Status DC Simethicone (Gas-X) 80 mg PRN AFTMEALHC PRN PO GAS / BLOATING Last administered on 01/05/20at 08:35; Start 01/03/20 at 16:15 Olanzapine (ZyPREXA) 5 mg HS PO ; Start 01/04/20 at 23:00 Famotidine (Pepcid) 20 mg BID PO ; Start 01/05/20 at 21:00 Capsaicin (Zostrix) 1 pavan TID TP ; Start 01/05/20 at 11:00 Lidocaine (Lidoderm) 1 patch DAILY TD ; Start 01/05/20 at 11:00 Miscellaneous (Lidoderm Patch Removal) 1 ea QHS MC ; Start 01/05/20 at 21:00 Active Scripts Active Zofran (Ondansetron Hcl) 4 Mg Tablet 4 Mg PO PRN TID PRN nausea/vomiting Dicyclomine Hcl 20 Mg Tablet 1 Tab PO TID Pepcid (Famotidine) 20 Mg Tablet 20 Mg PO HS 14 Days Reported Tramadol Hcl 50 Mg Tablet 50 Mg PO BID PRN Valium (Diazepam) 5 Mg Tablet 7.5 Mg PO HS Multivitamins (Multivitamin) 1 Each Capsule 1 Cap PO DAILY 30 Days Allergies Allergies: Coded Allergies: adhesive (Verified Allergy, Intermediate, Rash, 07/15/19) latex (Verified Allergy, Intermediate, Rash, 07/15/19) Physical Exam Physical Exam GEN: NAD LUNGS: CTAB HEART: RRR ABD: soft, non-specifically tender to light touch, NABS NEURO/PSYCH: A & O 3, tearful Vitals VITALS Vital Signs Date Time Temp Pulse Resp B/P (MAP) Pulse Ox O2 Delivery O2 Flow Rate FiO2 01/05/20 11:00 98.0 97 18 107/70 (82) 95 Room Air 98.0 Labs Labs Laboratory Tests Test 01/04/20 03:55 01/05/20 06:51 Sodium Level 145 mmol/L (136-145) 144 mmol/L (136-145) Potassium Level 3.6 mmol/L (3.5-5.1) 3.4 mmol/L (3.5-5.1) Chloride Level 108 mmol/L (98-107) 108 mmol/L (98-107) Carbon Dioxide Level 29 mmol/L (21-32) 26 mmol/L (21-32) Anion Gap 8 (6-14) 10 (6-14) Blood Urea Nitrogen 4 mg/dL (7-20) 4 mg/dL (7-20) Creatinine 0.7 mg/dL (0.6-1.0) 0.5 mg/dL (0.6-1.0) Estimated GFR (Cockcroft-Gault) 94.2 138.8 Glucose Level 78 mg/dL (70-99) 72 mg/dL (70-99) Calcium Level 8.2 mg/dL (8.5-10.1) 8.5 mg/dL (8.5-10.1) Laboratory Tests Test 01/05/20 06:51 Sodium Level 144 mmol/L (136-145) Potassium Level 3.4 mmol/L (3.5-5.1) Chloride Level 108 mmol/L (98-107) Carbon Dioxide Level 26 mmol/L (21-32) Anion Gap 10 (6-14) Blood Urea Nitrogen 4 mg/dL (7-20) Creatinine 0.5 mg/dL (0.6-1.0) Estimated GFR (Cockcroft-Gault) 138.8 Glucose Level 72 mg/dL (70-99) Calcium Level 8.5 mg/dL (8.5-10.1) Assessment/Plan Assessment/Plan Assessment: 39y admitted for abd/pelvic pain Recommendations: 1.) s/p LAVH/BSO on 12/09/19 procedure performed for endometriosis. Not found on pathology but adenomyosis was noted. No signs for PO complications seen on imaging. Likely a hematoma or abscess would be seen on CT if it were the etiology of the pain. Not likely the pts current pain issues are related to the surgery. 2.) H/o endometriosis per hx. Started on ERT due to vasomotor symptoms PO. Current pain does not seem to be related to endometriosis. 3.) Surgical menopause currently on Estradiol 1mg. 4.) Abd adhesions to mesh noted on OP report. Can be eval as an outpt by Gen Surg. 5.) H/o umb hernia abd wall repair with mesh. States pain began with this repair 6.) H/o Lyme dz 7.) H/o PUD GI following 8.) N/V and wt loss improved over the course of her hospitalization HENRY BANEGAS MD Jan 05, 2020 11:45
[2020-01-05] MEDS ORDERED: FAMO-63 PO (12:25)
[2020-01-05] MEDS ORDERED: IBUP-1670 PO (12:25)
[2020-01-05] MEDS ORDERED: CAPS60CR2 TP (12:25)
[2020-01-05] MEDS ORDERED: Patch Removal MC (12:25)
[2020-01-05] MEDS ORDERED: OLAN5TAB9 PO (12:25)
[2020-01-05] MEDS ORDERED: LIDO700A21 TD (12:25)
--- NOTE | 2020-01-05 12:27 | DISCH ---
DISCHARGE INSTRUCTIONS Condition on Discharge Condition on Discharge: Stable Activity After Discharge Activity Instructions for Disc: No restrictions, Activity as tolerated Exercise Instruction after Dis: Walk 30 min, 5 x per week, Exercise per therapy, Progress as tolerated Diet after Discharge Diet after Discharge: Regular Checks after Discharge Checks after discharge: Weigh Yourself Daily DC Comment: Will need to see a skip tender for weight loss Contacting the DR. after DC Call your doctor for: If your condition worsens Follow-Up Follow up with: PCP within 1 to 2 weeks of discharge Follow Up With: Psychiatry, cognitive behavioral therapy, pain management Treatment/Equipment after DC Adaptive Equipment Issued: None LUBA SALDIVAR MD Jan 05, 2020 12:27
[2020-01-05 15:00] VITALS: BP 107/70
--- NOTE | 2020-01-05 18:03 | PDOC3 ---
[facility]-Discharge Summary Date of Admission: Date of Admission: Jan 01, 2020 Date of Discharge: Date of Discharge: Jan 05, 2020 Admission Diagnosis: Admitting Diagnosis: Intractable abdominal pain, anemia, peptic ulcer disease, rule out GI bleed Discharge Diagnosis: Discharge Diagnosis: Acute on chronic abdominal pain with unclear etiology, SBFT did show slow gut transit time without any evidence of strictures or obstruction History of Lyme disease that was treated History of hysterectomy for endometriosis History of a mesh placement for umbilical hernia repair in 2018 History of panic disorder Consults: Consults: Gen Surg GI Gynecology Psychiatry Hospital Course: Hospital Course: 39-year-old female with past medical history of endometriosis status post hysterectomy, peptic ulcer disease, colon polyps, who presents with constant abdominal pain. Patient has a history of chronic abdominal pain over the past 2 years secondary to abdominal hernia with mesh repair in 2018 and peptic ulcer disease. She had a hysterectomy on 12/09/2019, and reports worsening of her abdominal pain since that time. Patient states her pain is 7/10 at worst and throbbing in nature. She takes Tylenol and tramadol for pain without significant improvement. She reports associated decreased appetite and weight loss. She previously reports having plans to have her abdominal mesh removed but this elective procedure changed due to COVID-19. She denies any dark stools, bloody stools, vomiting. Patient was evaluted by the consultants listed above. All have determined there were no invasive procedural option for her. She was evaluated by psychiatry for which they recommended Zyprexa, but she refused this as she believed this would affect her other medications. Her abdominal pain was tolerated throughout her hospital stay and she did not have any N/V, diarrhea, acute exacerbations, or bloody emesis or stools. Patient is tearful describing the difficult she went through when she had to deal with her Lyme disease 2 years ago and since her mesh placement, She has not been the same. I spent a great deal of time explaining that she will need to establish with her PCP a behavioral therapist for CBT and a pain medicine physician in order to create a plan. She will also need to be re-evaluated by surgery in order to consider a diagnostic laparoscopy. She will also need to follow up with psychiatry in order to address her panic disorder and generalized anxiety. Patient was tolerating diet by the time of her discharge and her ABD pain was manageable. Physical Exam on day of discharge General: Alert, Oriented X3, Cooperative, moderate distress Heart: Regular rate, No murmurs Abdomen: Normal bowel sounds, Soft, Other (Diffusely tender to palpation with guarding no peritoneal signs). + Carnett sign Extremities: No edema Skin: No significant lesion Disposition: Disposition/Orders: D/C to Home Activity: Activity: Resume previous activity Diet: Diet: Regular Medications: Home Meds Active Scripts [Patch Removal] 1 EA EACH No Conflict Check, 1 EA QHS Prov:LUBA SALDIVAR MD 01/05/20 Capsaicin (CAPSAICIN) 60 Gm Cream..g., 1 BRANDI TP TID for abd wall pain for 30 Days, #90 EACH Prov:LUBA SALDIVAR MD 01/05/20 Lidocaine (Lidocaine PATCH ) 1 Each Adh..patch, 1 PATCH TD DAILY for abd wall pain for 30 Days, #30 PATCH Prov:LUBA SALDIVAR MD 01/05/20 Olanzapine (OLANZAPINE) 5 Mg Tablet, 5 MG PO HS for anxiety for 30 Days, #30 TAB Prov:LUBA SALDIVAR MD 01/05/20 Ibuprofen (Ibuprofen) 200 Mg Tablet, 400 MG PO PRN Q6HRS PRN for INFLAMMATION for 14 Days, #50 TAB Prov:LUBA SALDIVAR MD 01/05/20 Famotidine (PEPCID) 20 Mg Tablet, 20 MG PO BID for pud for 30 Days, #60 TAB Prov:LUBA SALDIVAR MD 01/05/20 Ondansetron Hcl (ZOFRAN) 4 Mg Tablet, 4 MG PO PRN TID PRN for NAUSEA, #15 nausea/vomiting Prov:MAXIMILIANO DOWD DO 12/22/19 Dicyclomine Hcl (DICYCLOMINE HCL) 20 Mg Tablet, 1 TAB PO TID, #21 TAB 1 Refill Prov:MAXIMILIANO DOWD DO 12/22/19 Reported Medications Diazepam (VALIUM) 5 Mg Tablet, 7.5 MG PO HS for sleep aid, TAB 07/15/19 Multivitamin (MULTIVITAMINS) 1 Each Capsule, 1 CAP PO DAILY for vitamin for 30 Days, #30 CAP 0 Refills 07/15/19 Discontinued Reported Medications Tramadol Hcl (TRAMADOL HCL) 50 Mg Tablet, 50 MG PO BID PRN for PAIN, TAB 0 Refills 12/04/19 Scheduled Capsaicin (Capsaicin), 1 BRANDI TP TID Diazepam (Valium), 7.5 MG PO HS, (Reported) Dicyclomine Hcl (Dicyclomine Hcl), 1 TAB PO TID Famotidine (Pepcid), 20 MG PO BID Lidocaine (Lidocaine PATCH ), 1 PATCH TD DAILY Multivitamin (Multivitamins), 1 CAP PO DAILY, (Reported) Olanzapine (Olanzapine), 5 MG PO HS [Patch Removal], 1 EA MC QHS Scheduled PRN Ibuprofen (Ibuprofen), 400 MG PO PRN Q6HRS PRN for INFLAMMATION Ondansetron Hcl (Zofran), 4 MG PO PRN TID PRN for NAUSEA Discontinued Medications Tramadol Hcl (Tramadol Hcl), 50 MG PO BID PRN for PAIN, (Reported) Total Time: Total Time: Total time spent was 50 minutes in preparing scripts, discharge planning with SW and RN, and preparing this discharge summary. Justicifation of Admission Dx: Justifications for Admission: Justification of Admission Dx: Yes LUBA SALDIVAR MD Jan 05, 2020 18:03
[2020-01-05] MEDS ORDERED: PATCH REMOVAL. MC SCH (21:00)
[2020-01-05] MEDS ORDERED: FAMOTIDINE 20 MG TABLET. PO SCH (21:00)
== END 2020-01-05 15:40 | disposition home or self-care (01) | DRG 392 ==
LOC: ER 15:38 → 4 NORTH 20:10
PROVIDERS: ADMIT Family Medicine; ATTEND Family Medicine
DX: R10.9 Unspecified abdominal pain (principal); R64 Cachexia; Z68.1 Body mass index [BMI] 19.9 or less, adult; D64.9 Anemia, unspecified; F17.210 Nicotine dependence, cigarettes, uncomplicated; F32.9 Major depressive disorder, single episode, unspecified; F41.0 Panic disorder [episodic paroxysmal anxiety]; F41.1 Generalized anxiety disorder; G47.00 Insomnia, unspecified; G89.29 Other chronic pain; K43.9 Ventral hernia without obstruction or gangrene; K66.0 Peritoneal adhesions (postprocedural) (postinfection); N72 Inflammatory disease of cervix uteri; N80.0 Endometriosis of uterus; N80.1 Endometriosis of ovary; N80.5 Endometriosis of intestine; N83.8 Other noninflammatory disorders of ovary, fallopian tube and broad ligament; N94.10 Unspecified dyspareunia; Z79.899 Other long term (current) drug therapy; K76.0 Fatty (change of) liver, not elsewhere classified
CPT/HCPCS: 36415; 74018; 74177; 74250; 80048; 80053; 81001; 81025; 82274; 82533; 82607; 82728; 83540; 83550; 83690; 85025; 85610; 85730; 86140; 96374; 96375; 96376; J1644; J2270; J2405; J2765; J3010; J7030; Q9966; Q9967; 99285-25; G0378

== ENCOUNTER 2020-09-01 10:12 | Emergency (ER) | payer OTHER ==
[~2020-09-01] VITALS: Ht 157.5 cm; Wt 41.8 kg
[~2020-09-01 10:12] MED LIST changes: +CAPS60CR2 TP; +IBUP-1670 PO; +LIDO700A21 TD; +OLAN5TAB9 PO; +Patch Removal MC
[2020-09-01 11:13] LABS: BASO # 0.1 x10^3/uL (0.0-0.2); BASO % 1 % (0-3); EOS # 0.1 x10^3/uL (0.0-0.7); EOS % 1 % (0-3); HEMATOCRIT 40.7 % (36.0-47.0); HEMOGLOBIN 14.1 g/dL (12.0-15.5); LYMPH # 2.2 x10^3/uL (1.0-4.8); LYMPH % 34 % (24-48); MEAN CORPUSCULAR HEMOGLOBIN 32 pg (25-35); MEAN CORPUSCULAR HGB CONC 35 g/dL (31-37); MEAN CORPUSCULAR VOLUME 91 fL (79-100); MONO # 0.4 x10^3/uL (0.0-1.1); MONO % 7 % (0-9); NEUT # 3.7 x10^3/uL (1.8-7.7); NEUT % 58 % (31-73); PLATELET COUNT 163 x10^3/uL (140-400); RED BLOOD COUNT 4.46 x10^6/uL (3.50-5.40); RED CELL DISTRIBUTION WIDTH 12.1 % (11.5-14.5); WHITE BLOOD COUNT 6.4 x10^3/uL (4.0-11.0)
[2020-09-01] MEDS ORDERED: MORPHINE SULFATE 4 MG/ML VIAL. IV ONE (11:15)
[2020-09-01] MEDS ORDERED: ONDANSETRON PF 4 MG/2 ML VIAL. IVP ONE (11:15)
[2020-09-01] MEDS ORDERED: IV NORMAL SALINE 1000ML BAG 1,000 ML IV ONE (11:15)
[2020-09-01 11:20] LABS: CALCIUM 8.9 mg/dL (8.5-10.1); CREATININE 0.6 mg/dL (0.6-1.0); GFR 111.9
--- NOTE | 2020-09-01 11:24 | PHYS DOC ---
Past Medical History Past Medical History: Anxiety, Endometriosis, P.U.D., Other Additional Past Medical Histor: HERNIA,ULCER,LYME'S DZ,COLON POLYPS Past Surgical History: Hysterectomy, Tubal ligation, Other Additional Past Surgical Histo: R SHOULDER,HEMORRHOIDECTOMY,HERNIA W/ ABD MESH,LAVH/BSO Smoking Status: Current Every Day Smoker Additional Information: 0.5 PPD Alcohol Use: None General Adult EDM: Chief Complaint: ABDOMINAL PAIN HPI: HPI: Patient is a 40 year old female with history of endometriosis, full hysterectomy, chronic abdominal pain, anxiety, who presents to the ED today complaining of a 9 out of 10 dull aching right lower quadrant abdominal pain, symptoms for 5 to 6 days. Patient is also complaining of nausea and vomiting. Denies any fever. Denies any diarrhea. Patient states she was seen at [facility] in [place] on August 29, 2020 for the same complaint, she states she had lab work done and a CAT scan of the abdomen and pelvic which was negative. She states today she followed up with her [employer] Dr. Ryanne Lewis who requested her to come to the ED Review of Systems: Review of Systems: Constitutional: Denies fever or chills. [] Eyes: Denies change in visual acuity. [] HENT: Denies nasal congestion or sore throat. [] Respiratory: Denies cough or shortness of breath. [] Cardiovascular: Denies chest pain or edema. [] GI: Reports right lower quadrant abdominal pain with nausea and vomiting, denies bloody stools or diarrhea. [] : Denies dysuria. [] Musculoskeletal: Denies back pain or joint pain. [] Integument: Denies rash. [] Neurologic: Denies headache, focal weakness or sensory changes. [] Psychiatric: Denies depression or anxiety. [] Heart Score: C/O Chest Pain: N/A Risk Factors: Risk Factors: DM, Current or recent (<one month) smoker, HTN, HLP, family history of CAD, obesity. Risk Scores: Score 0 - 3: 2.5% MACE over next 6 weeks - Discharge Home Score 4 - 6: 20.3% MACE over next 6 weeks - Admit for Clinical Observation Score 7 - 10: 72.7% MACE over next 6 weeks - Early Invasive Strategies Current Medications: Current Medications Medications (Trade) Dose Ordered Sig/Jasmeet Start Time Stop Time Status Last Admin Dose Admin Morphine Sulfate (Morphine Sulfate) 4 mg 1X ONCE 09/01/20 11:15 09/01/20 11:16 DC Ondansetron HCl (Zofran) 4 mg 1X ONCE 09/01/20 11:15 09/01/20 11:16 DC Sodium Chloride 1,000 ml @ 1,000 mls/hr 1X ONCE 09/01/20 11:15 09/01/20 12:14 Allergies: Allergies: Allergies Coded Allergies Type Severity Reaction Last Updated Verified adhesive Allergy Intermediate Rash 07/15/19 Yes latex Allergy Intermediate Rash 07/15/19 Yes Physical Exam: PE: Constitutional: Thin appearing patient, no acute distress, non-toxic appearance. [] HENT: Normocephalic, atraumatic, bilateral external ears normal, oropharynx moist, no oral exudates, nose normal. [] Eyes: PERRLA, EOMI, conjunctiva normal, no discharge. [] Neck: Normal range of motion, no tenderness, supple, no stridor. [] Cardiovascular:Heart rate regular rhythm, no murmur [] Lungs & Thorax: Bilateral breath sounds clear to auscultation [] Abdomen: Flat abdomen. Bowel sounds normal, soft, no tenderness to the right up per quadrant, moderate tenderness to the right lower quadrant, negative psoas sign, no guarding, no rebound pain or tenderness, no masses, no pulsatile masses. [] Skin: Warm, dry, no erythema, no rash. [] Back: No tenderness, no CVA tenderness. [] Extremities: No tenderness, no cyanosis, no clubbing, ROM intact, no edema. [] Neurologic: Alert and oriented X 3, normal motor function, normal sensory function, no focal deficits noted. [] Psychologic: Flat affect, tearful Current Patient Data: Labs: Laboratory Tests Test 09/01/20 10:37 White Blood Count 6.4 x10^3/uL (4.0-11.0) Red Blood Count 4.46 x10^6/uL (3.50-5.40) Hemoglobin 14.1 g/dL (12.0-15.5) Hematocrit 40.7 % (36.0-47.0) Mean Corpuscular Volume 91 fL (79-100) Mean Corpuscular Hemoglobin 32 pg (25-35) Mean Corpuscular Hemoglobin Concent 35 g/dL (31-37) Red Cell Distribution Width 12.1 % (11.5-14.5) Platelet Count 163 x10^3/uL (140-400) Neutrophils (%) (Auto) 58 % (31-73) Lymphocytes (%) (Auto) 34 % (24-48) Monocytes (%) (Auto) 7 % (0-9) Eosinophils (%) (Auto) 1 % (0-3) Basophils (%) (Auto) 1 % (0-3) Neutrophils # (Auto) 3.7 x10^3/uL (1.8-7.7) Lymphocytes # (Auto) 2.2 x10^3/uL (1.0-4.8) Monocytes # (Auto) 0.4 x10^3/uL (0.0-1.1) Eosinophils # (Auto) 0.1 x10^3/uL (0.0-0.7) Basophils # (Auto) 0.1 x10^3/uL (0.0-0.2) Laboratory Tests 09/01/20 10:37 Vital Signs: Vital Signs Date Time Temp Pulse Resp B/P (MAP) Pulse Ox O2 Delivery O2 Flow Rate FiO2 09/01/20 10:17 97.8 101 20 92/58 (69) 97 Room Air 97.8 EKG: EKG: [] Radiology/Procedures: Radiology/Procedures: []PROCEDURE: RIGHT LOWER QUANDRANT US ABDOMEN LTD History: Reason: RLQ pain look at appendix / Spl. Instructions: / History: Comparison: None. Technique: Transabdominal ultrasound images are obtained of the right lower quadrant. Findings: Appendix not identified. Peristalsing bowel within the right lower quadrant. IMPRESSION: 1. Appendix not identified. Electronically signed by: Juan Rajput DO (09/01/2020 11:56 AM) [id number] DICTATED and SIGNED BY: JUAN RAJPUT DO DATE: 09/01/20 [id number] 0 Course & Med Decision Making: Course & Med Decision Making Pertinent Labs and Imaging studies reviewed. (See chart for details) This is a 40-year-old female patient presented to the ED today with right lower quadrant abdominal pain with nausea and vomiting for 5 to 6 days. Patient was seen at [facility] on August 29, 2020 for the same complaint and had a full work-up including a negative CT of the abdomen and pelvic. She has history of chronic abdominal pain. CBC, CMP are completely normal. UA negative for infection. Patient had a CT of the abdomen and pelvic done 3 days ago so repeat CT is not warranted. This is chronic pain from this patient. Right lower quadrant ultrasound was not able to identify appendix the patient's BMI is 16.96 I spoke to patient about her negative results. She started crying out loud stating something is wrong with her, she started saying her appendix is behind her colon and it could be ruptured. Informed patient there is no way indication for appendicitis especially with her work-up today. She immediately started saying she is leaving the ED, she removed her own blood pressure monitor. She was trying to remove her on IV, informed her the nurse will remove it. Asked patient and if they have ever followed up with the pain clinic, she stated they have seen the pain clinic doctor 2 years ago. It is Unknown how that went. Patient left the ED Dragon Disclaimer: Ravinder Disclaimer: This electronic medical record was generated, in whole or in part, using a voice recognition dictation system. Departure Departure Impression: Primary Impression: Chronic abdominal pain Additional Impression: Marijuana use Disposition: HOME / SELF CARE / HOMELESS Condition: STABLE (Okay) Referrals: HOLGER WEBER (PCP) MONSE MCKEON [employer] September 01, 2020 11:24
[2020-09-01 11:32] LABS: ALBUMIN 4.2 g/dL (3.4-5.0); ALBUMIN/GLOBULIN RATIO 1.6 (1.0-1.7); TOTAL BILIRUBIN 0.4 mg/dL (0.2-1.0); TOTAL PROTEIN 6.9 g/dL (6.4-8.2)
[2020-09-01 11:38] LABS: BARBITURATES NEG (NEG); BENZODIAZEPINES NEG (NEG); CANNABINOIDS POS (NEG); COCAINE NEG (NEG); METHADONE NEG (NEG); OPIATES POS (NEG); PHENCYCLIDINE NEG (NEG)
[2020-09-01 11:39] LABS: AMPHETAMINE/METHAMPHETAMINE NEG (NEG)
[2020-09-01 11:41] LABS: BILIRUBIN,URINE NEGATIVE (NEG); CLARITY,URINE CLOUDY; COLOR,URINE YELLOW; NITRITE,URINE NEGATIVE (NEG); PH,URINE 6.5 (<5.0-8.0); PROTEIN,URINE NEGATIVE (NEG-TRACE); UROBILINOGEN,URINE 0.2 mg/dL (0.2 mg/dL)
[2020-09-01 11:54] LABS: BACTERIA,URINE FEW /HPF (0-FEW); RBC,URINE OCC /HPF (0-2)
--- NOTE | 2020-09-01 11:59 | RAD ---
US ABDOMEN LTD History: Reason: RLQ pain look at appendix / Spl. Instructions: / History: Comparison: None. Technique: Transabdominal ultrasound images are obtained of the right lower quadrant. Findings: Appendix not identified. Peristalsing bowel within the right lower quadrant. IMPRESSION: 1. Appendix not identified. Electronically signed by: Juan Rajput DO (09/01/2020 11:56 AM) [id number]
[2020-09-01 12:22] VITALS: BP 97/53
[2020-09-01] MEDS ORDERED: HALOPERIDOL LACTATE 5 MG/ML VIAL. IVP ONE (12:45)
== END 2020-09-01 12:53 | disposition home or self-care (01) ==
LOC: ER 10:12
DX: G89.29 Other chronic pain (principal); R10.31 Right lower quadrant pain; R11.2 Nausea with vomiting, unspecified; F41.9 Anxiety disorder, unspecified; F17.200 Nicotine dependence, unspecified, uncomplicated; Z90.710 Acquired absence of both cervix and uterus; Z98.51 Tubal ligation status; Z88.8 Allergy status to other drugs, medicaments and biological substances; Z91.040 Latex allergy status
CPT/HCPCS: 36415; 80053; 80307; 81001; 83690; 85025; 93975; 96361; 96374; 96375; 99284; J2270; J2405; J7030

== ENCOUNTER → 2021-04-17 | Outpatient (CLI) | payer OTHER ==
[~2021-04-17] VITALS: Ht 157.5 cm; Wt 43.1 kg
[~2021-04-17] MED LIST changes: +DICY20TA PO; -DICY20TA3 PO; +NORMAL SALINE IV ONE; +OLAN5TAB67 PO; -OLAN5TAB9 PO; +SINCALIDE IV ONE
--- NOTE | 2021-04-17 09:56 | RAD ---
EXAM: Abdomen sonogram. HISTORY: Pain. TECHNIQUE: Sonographic imaging of the abdomen was performed. COMPARISON: None. FINDINGS: The liver is normal in size. No focal hepatic lesion is seen. The gallbladder is unremarkab le. The common bile duct is normal in caliber. The right kidney, pancreas and inferior vena cava are unremarkable. IMPRESSION: Unremarkable abdomen sonogram. Electronically signed by: Evelyn Mazariegos MD (04/17/2021 9:54 AM) [id number]
--- NOTE | 2021-04-17 12:07 | RAD ---
EXAM: Nuclear hepatobiliary scan. HISTORY: Pain. Nausea and vomiting. TECHNIQUE: Following intravenous administration of 5.5 mCi Tc 99m Choletec, anterior images of the ab domen were obtained at five minute intervals through one hour. Subsequently, 0.86 mcg CCK was adminis tered and additional images to assess gallbladder ejection fraction were obtained. FINDINGS: There is prompt radiotracer uptake by the liver. No focal defect is seen. There is normal e xcretion into the biliary tree. The gallbladder is visualized within 5 minutes and there is free flow into the duodenum. The gallbladder ejection fraction is 80 percent. IMPRESSION: Normal radionuclide biliary scan. Electronically signed by: Evelyn Mazariegos MD (04/17/2021 12:05 PM) [id number]
== END ==
LOC: US 11:21
PROVIDERS: ATTEND Internal Medicine Gastroenterology
DX: R10.11 Right upper quadrant pain (principal); R10.9 Unspecified abdominal pain; R11.2 Nausea with vomiting, unspecified
CPT/HCPCS: 76705; 78227; A9537; J2805